=== PATIENT | female | born 1950 | race Caucasian/White ===

== ENCOUNTER → 2021-10-30 | Outpatient (CLI) | payer MEDICARE, OTHER, SELFPAY ==
[2021-10-30 15:20] LABS: Absolute Lymphocyte Count 1.84 X10^3/uL (0.83-4.51); Basophil# 0.04 X10^3/uL; Basophil% 0.4 % (0-1); Eosinophil# 0.16 X10^3/uL; Eosinophils% 1.6 % (0-5); Hematocrit 38.3 % (37-47); Hemoglobin 12.2 g/dL (12.0-15.0); Lymphocyte # 1.84 X10^3/ul (0.83-4.51); Lymphocyte % 18.7 % (19-41); Mean Corp Hgb Conc 31.9 g/dL (32-36); Mean Corpuscular Hgb 30.2 pg (27.0-32.0); Mean Corpuscular Volume 94.8 fL (81-99); Mean Platelet Vol. 9.3 fl (6.2-12.0); Monocyte# 0.79 X10^3/uL; NRBC Flagged by Analyzer 0 % (0-5); Neutrophil # 6.99 X10^3/uL (2.7-7.7); Neutrophil % 70.9 % (47-70); Platelet Count 376 K/mm3 (150-450); RBC Distribution Width CV 13.2 % (11.6-14.6); RBC Distribution Width SD 45.8 fl (35.1-43.9); Red Blood Count 4.04 M/mm3 (4.2-5.4); White Blood Count 9.9 K/mm3 (4.4-11.0)
[2021-10-30 15:47] LABS: Anion Gap 7 (5-15); BUN 30 mg/dL (7-18); BUN/Creat Ratio 35.4 RATIO (10-20); Calcium,Total 9.6 mg/dL (8.5-10.1); Chloride 103 mmol/L (98-107); Creatinine, Serum 0.85 mg/dL (0.55-1.02); EST Glomerular Filtration Rate 71 mL/min (>60); Est Glom Filt Rate - Afr Amer 86 mL/min (>60); Glucose 98 mg/dL (74-106); Potassium 3.9 mmol/L (3.5-5.1); Sodium Level 137 mmol/L (136-145)
[2021-10-31 11:14] LABS: AST(SGOT) 18 U/L (15-37); Alanine Aminotransfer ALT/SGPT 18 U/L (13-56); Albumin, Serum 3.8 g/dL (3.2-5.0); Alkaline Phosphatase 106 U/L (45-117); Bilirubin, Direct 0.09 mg/dL (0.00-0.30); Protein, Total 7.8 g/dL (6.4-8.2)
[2021-11-02 09:34] LABS: Hepatitis B Surface Antibody Non-Reactive; Hepatitis B Surface Antigen Non-Reactive (Nonreactive); Hepatitis C Antibody Non-Reactive (Nonreactive)
[2021-11-03 19:07] LABS: QNTFERON TB Mitogen Value > 10.00 IU/mL (.); QNTFERON TB Nil Value 0 IU/mL (.); QNTFERON TB1+ Ag Value 0.01 IU/mL (.); QNTFERON TB2+ Ag Value 0.01 IU/mL (.)
[2021-11-04 10:28] LABS: Hepatitis B Core Ab Total Negative (Negative); QNTIFERON TB Positive Criteria Negative (Negative)
== END | disposition home or self-care (01) ==
LOC: MTLAB 12:52
PROVIDERS: Referring Provider Physician Assistant; Visit Provider Physician Assistant
DX: L40.0 Psoriasis vulgaris (principal); Z79.899 Other long term (current) drug therapy
CPT/HCPCS: 36415; 80048; 80076; 85025; 86480; 86704; 86706; 86803; 87340

== ENCOUNTER → 2023-07-06 | Outpatient (CLI) | payer MEDICARE, OTHER, SELFPAY ==
--- OUTSIDE RECORDS SUMMARY | 2023-07-06 14:33 | XMS RPT_ITS | CCD ---
Author Name Unknown Address Formerly [facility] [address] [place] [address] Organization [facility] Care Team Providers Care Processor Grain Name Role Phone DR DAYANA RICKS MD Primary Care Physician Adal Morales Primary Care Provider [phone] Adal Morales Attending Provider Dayana Ricks Primary Care Provider [phone] Dyaana Ricks Primary Care Provider DAYANA RICKS Referring Unavailable DAYANA RICKS Primary Care Unavailable Dayana Ricks Primary Care Unavailable ANDI/ANNABELLE Consulting Unavailable Khadra Gutiérrez Attending Unavailable Dayana Ricks Attending Unavailable Dayana Ricks DO Primary Care Provider [phone] Allergies Allergy Classification Reported Allergen(s) Allergy Type Date of Onset Reaction(s) Facility (1 source) Penicillin; Translations: [penicillins] Drug Allergy [facility] (1 source) meloxicam Drug Allergy 12-08-2020 [facility] (2 sources) Penicillins; Translations: [PENICILLINS] Allergy to Substance 01-02-2002 Rash [facility] (1 source) Penicillins Drug Allergy 01-02-2002 [facility] (1 source) meloxicam Drug Allergy 12-08-2020 [facility] (1 source) Penicillins Drug allergy (disorder) 12-08-2020 [facility] (1 source) Penicillins Drug Allergy 01-02-2002 [facility] Medications Current Medications Medication Drug Class(es) Dates Sig (Normalized) Sig (Original) cetirizine hydrochloride 10 mg oral tablet (1 source) Histamine-1 Receptor Antagonist Start: 06-21-2011 Zyrtec 10 mg oral tablet Dose : 10 mg = 1 tab(s), Oral, Daily, PRN for allergy symptoms, # 10 tab(s), 0 Refill(s) Start Date: 06/21/11 Status: Ordered fexofenadine (1 source) Histamine-1 Receptor Antagonist Start: 01-30-2017 Georgie 0 Refill(s) Start Date: 01/30/17 Status: Ordered traMADOL 200 mg/24 hours oral tablet, extended release (1 source) Start: 06-21-2011 take 1 tablet by mouth every hour, then take 1 tablet by mouth once daily traMADOL 200 mg/24 hours oral tablet, extended release Dose : 200 mg = 1 tab(s), Oral, Daily, # 30 tab(s), 0 Refill(s) Start Date: 06/21/11 Status: Ordered vitamin B12 (1 source) Vitamin B12 Start: 01-30-2017 Vitamin B12 0 Refill(s) Start Date: 01/30/17 Status: Ordered Vitamin D3 (1 source) Start: 01-30-2017 Vitamin D3 0 Refill(s) Start Date: 01/30/17 Status: Ordered Completed/Discontinued Medications Medication Drug Class(es) Dates Sig (Normalized) Sig (Original) acetaminophen 325 mg oral tablet (2 sources) Start: 10-23-2020 Acetaminophen [Tylenol*] 650 MG PO EVERY 4 HOURS PRN For Temperature >102 October 23, 2020 Active acetaminophen 325 mg / oxyCODONE hydrochloride 5 mg oral tablet (10 sources) Opioid Agonist Start: 12-08-2020 End: 12-15-2020 take 5-325 mg by mouth every six hours as needed Oxycodone W/ Apap 5-325 Mg [Percocet 5-325 Mg *] 1 TAB PO EVERY 6 HOURS NEEDED PRN For Pain 07 01December 08, 2020 December 15, 2020 Discontinued Problems Active Problems Problem Classification Problem Date Documented Date Episodic/Chronic E Codes: Fall (1 source) Fall; Translations: [Unspecified fall, initial encounter] Episodic Fracture of upper limb (1 source) Fracture at wrist and/or hand level; Translations: [Fracture of unspecified carpal bone, unspecified wrist, initial encounter for closed fracture] Episodic Menopausal disorders (2 sources) Menopausal symptom; Translations: [Menopausal and female climacteric states] Onset: 01-02-2002 10-07-2003 Chronic Osteoarthritis (1 source) Osteoarthritis of left knee joint; Translations: [Unilateral primary osteoarthritis, left knee] Chronic Osteoporosis (2 sources) Osteoporosis; Translations: [Age-related osteoporosis without current pathological fracture] Onset: 12-12-2015 06-09-2021 Chronic Other inflammatory condition of skin (1 source) Psoriasis vulgaris; Translations: [Psoriasis vulgaris] Onset: 09-22-2022 Chronic Other injuries and conditions due to external causes (1 source) Avulsion of skin; Translations: [Other injury of unspecified body region, initial encounter] Episodic Other upper respiratory disease (1 source) Other allergic rhinitis; Translations: [Other allergic rhinitis] Onset: 04-12-2023 Chronic Substance-related disorders (2 sources) Tobacco user; Translations: [Nicotine dependence, unspecified, uncomplicated] Onset: 07-27-2005 07-27-2005 Chronic Thyroid disorders (3 sources) Hypothyroidism; Translations: [Hypothyroidism, unspecified] Onset: 01-02-2002 Chronic Past or Other Problems Problem Classification Problem Date Documented Da te Episodic/Chronic Other aftercare (1 source) Other intermediate (current) drug therapy; Translations: [Other intermediate (current) drug therapy] Onset: 09-22-2022 Episodic Other bone disease and musculoskeletal deformities (2 sources) Disorder of skeletal system; Translations: [Disorder of bone, unspecified] Onset: 07-27-2005 07-27-2005 Episodic Results Test Name Value Interpretation Reference Range Facil ity Vital Signs Date Time Vital Sign Value Performing Clinician Naomie glasgow 12-08-2020 20:30-0400 Body temperature 96.8 [degF] [facility] 12-08-2020 20:30-0400 Diastolic blood pressure 59 mm[Hg] Adal GO-SIM [facility] 12-08-2020 20:30-0400 Heart rate 80 /min [facility] 12-08-2020 20:30-0400 Respiratory rate 16 /min [facility] 12-08-2020 20:30-0400 SaO2% (BldA) [Mass fraction] 96 % Adal Morales [facility] 12-08-2020 20:30-0400 Systolic blood pressure 110 mm[Hg] [facility] 12-08-2020 13:22-0400 Body height 157.48 cm Adal Morales [facility] 12-08-2020 13:22-0400 Body weight 92 [facility] Encounters Encounter Date Encounter Type Care Provider Facility Start: 04-12-2023 ambulatory Dayana Ye ty:[facility] Start: 11-29-2022 End: 11-29-2022 ambulatory DAYANA RICKS Facility:[facility] Start: 11-29-2022 End: 11-29-2022 Subsequent hospital visit by physician Screen Mammo [facility] Start: 09-22-2022 ambulatory Dayana Flowersi ty:[facility] Start: 08-06-2021 End: 08-07-2021 Discharged Recurring Adal Morales [facility] Start: 04-09-2021 End: 04-09-2021 Patient encounter procedure RANDELLFRITZ MORALES DO [facility] Start: 03-12-2021 Telephone encounter Rudy rivera MD Work Phone: Endocrinology Procedures Date Procedure Procedure Detail Performing Clinician Start: 11-29-2022 Screening mammograph y bi 2-view breast inc [facility] Provider Start: 12-08-2020 Thermometer SDS Radha smith Start: 12-08-2020 Vital Signs SDS Radha smith Start: 12-08-2020 IV Push (Initial) PACU Radha Monroy Start: 12-08-2020 Oxygen PACU Radha Moran en Start: 12-08-2020 Thermometer PACU Radha Monroy Start: 12-08-2020 Vital Signs PACU Radha Monroy Start: 12-08-2020 Preparation for procedure Corina Guan Start: 12-08-2020 Arthroplasty of wrist D O Christopher Stalling Start: 12-08-2020 Injection of knee DO Ch ristopher Stalling Start: 12-08-2020 Active external warm ing of subject Elizabeth Bowling Start: 12-08-2020 Carbon dioxide maritza nt measurement Elizabeth Bowling Start: 12-08-2020 Epidural anesthesia Tri sha Bowling Start: 12-08-2020 IV Push (Initial) SDS T anand Bowling Start: 12-08-2020 Oxygen SDS Elizabeth Wooster ling Start: 12-08-2020 Sonosite Elizabeth Wooster ling Start: 12-08-2020 Angio-Cath SDS Rebeca farmer Start: 12-08-2020 Thermometer SDS Rebeca Margo Start: 12-08-2020 Vital Signs SDS Rebeca Margo Start: 12-08-2020 Gram stain microscopy C hris Stalling Start: 12-08-2020 Lumbar puncture in luz maria fluoroscopic guidance Adal ing Start: 10-22-2020 X-ray of left knee Chri s Stalling Start: 10-22-2020 Carbon dioxide maritza nt measurement Reyna Ingledue Start: 10-22-2020 Oxygen PACU Reyna Ingl edue Start: 10-22-2020 Thermometer PACU Reyna Ingledue Start: 10-22-2020 Vital Signs PACU Reyna Ingledue Start: 10-22-2020 Carbon dioxide maritza nt measurement Charlene Eldon Start: 10-22-2020 Epidural anesthesia Emma i Chunko Start: 10-22-2020 IV Push (Initial) SDS L mathew Chunko Start: 10-22-2020 Oxygen SDS Charlene Chunk o Start: 10-22-2020 Sonosite Charlene Chunk o Start: 10-22-2020 End: 10-22-2020 Preparation for procedure Sandra Ricci Start: 10-22-2020 Total replacement of left knee joint DO Nash Morales Start: 10-22-2020 Clipper Blade SDS Radha Monroy Start: 10-22-2020 Angio-Cath SDS Radha Mu llen Start: 10-22-2020 Thermometer SDS Adal pascal Start: 10-22-2020 Vital Signs SDS Radha smith Start: 10-14-2020 Microscopic urinalysis Adal Morales Start: 01-01-2016 Mammography Rudy rivera MD Work Phone: Start: 12-29-2015 Lipid 1996 panel - S liza or Plasma Screen Wstr Plan of Treatment Date Care Activity Detail Author Start: 11-30-2023 Mammography Mammogram Screening [facility] Start: 02-11-2023 Covid-19 Vaccine ( season) Covid-19 Vaccine ( season) [facility] Start: 02-11-2023 Influenza vaccination Influenza Vaccine (#1) [facility] Start: 06-13-2022 Advance Directive Discussion Advance Directive Discussion [facility] Start: 06-13-2022 Depression Assessment Depression Assessment [facility] Start: 02-11-2022 [facility] Start: 06-13-2021 ADVANCE DIRECTIVE DISCUSSION ADVANCE DIRECTIVE DISCUSSION [facility] Start: 03-04-2021 COVID-19 VACCINE (3 - Booster for Moderna series) COVID-19 VACCINE (3 - Booster for Moderna series) [facility] Start: 12-28-2020 Lipid 1996 panel - Serum or Plasma Lipid Screening [facility] Start: 12-28-2020 LIPID SCREEN LIPID SCREEN [facility] Start: 12-08-2020 US GUIDANCE (MONET) US GUIDANCE (MONET) [facility] Start: 10-22-2020 US GUIDANCE (MONET) US GUIDANCE (MONET) [facility] Start: 12-28-2018 DIABETES SCREEN DIABETES SCREEN [facility] Start: 12-28-2018 Diabetes Screening Diabetes Screening [facility] Start: 2017 Pneumococcal Vaccine: 65+ (1 - PCV) Pneumococcal Vaccine: 65+ (1 - PCV) [facility] Start: 2017 PNEUMOVAX AGE 65 AND OVER WITH 5YR LOOKBACK (#1) PNEUMOVAX AGE 65 AND OVER WITH 5YR LOOKBACK (#1) [facility] Start: 12-31-2016 Mammography MAMMOGRAM [facility] Start: 2002 SHINGRIX VACCINE (1 of 2) SHINGRIX VACCINE (1 of 2) [facility] Start: 1997 COLOGUARD (FIT-DNA) COLOGUARD (FIT-DNA) [facility] Start: 1997 Colonoscopy COLONOSCOPY [facility] Start: 1997 COLORECTAL CANCER SCREENING COLORECTAL CANCER SCREENING [facility] Start: [address] COLONOGRAPHY [facility] Start: 1997 FECAL OCCULT BLOOD FECAL OCCULT BLOOD [facility] Start: 1997 SIGMOIDOSCOPY SIGMOIDOSCOPY [facility] Start: 1971 Urine microalbumin profile [facility] Start: 1970 ANNUAL PCP TEAM CHRONIC DISEASE VISIT ANNUAL PCP TEAM CHRONIC DISEASE VISIT [facility] Start: 1970 HEPATITIS C SCREENING HEPATITIS C SCREENING [facility] Start: 1964 Adult depression screening assessment DEPRESSION SCREENING [facility] INFLUENZA SEASONAL QUADRIVALENT HIGH DOSE AGE 65+ INFLUENZA SEASONAL QUADRIVALENT HIGH DOSE AGE 65+ Immunization/Injection Routine Unspecified hypothyroidism Ordered: 03/12/[address] [facility] Work Phone: Immunizations Immunization Date Immunization Notes Care Provider Jared linares 05-10-2022 influenza virus vaccine, unspecified formulation Screen Wstr [facility] 06-05-2020 diphtheria, tetanus toxoids and acellular pertussis vaccine Adal Morales [facility] 03-12-2020 influenza, high-dose , quadrivalent vaccine (FLUZONE HIGH DOSE QUADRIVALENT) Rudy Sanchez MD Work Phone: [facility] 02-28-2019 influenza, high dose seasonal, preservative-free Rudy Sanchez MD Work Phone: [facility] 11-21-2018 diphtheria, tetanus toxoids and acellular pertussis vaccine Adal Morales [facility] 04-09-2003 bacillus calmette-pepe vaccine Rudy Sanchez MD Work Phone: [facility] 04-09-2003 influenza virus vaccine, whole virus Rudy Sanchez MD Work Phone: [facility] 04-16-2001 influenza virus vaccine, unspecified formulation Rudy Sanchez MD Work Phone: [facility] Payers Date Payer Category Payer Self-pay 2019 Medicare MEDICARE MEDICAR E A AND B [id number] 2019-Present [phone] [place] [address] Medicare [id number] 2019 Medicare [id number] 2019 Medicare MEDICARE MEDICAR E A AND B [id number] 2019-Present [phone] [place] [address] Medicare [id number] 2002 Unknown [facility] [id number] 2002-Present [phone] [address] [address] [place] [address] Indemnity [id number] 2002 Unknown [id number] 2002 Unknown [facility] [id number] 2002-Present [phone] [address] [address] [place] [address] Indemnity [id number] Unknown [id number] Unknown [id number] Social History Date Type Detail Facility Start: 01-07-2016 Ex-smoker (finding) [facility] Assigned At [facility] End: 07-21-2015 History of tobacco use Current smoker [facility] Work Phone: End: 07-21-2015 History of tobacco use Cigarette Smoker [facility] Work Phone: Start: 01-07-2016 End: 05-20-2020 Cigarettes smoked current (pack per day) - Reported 0.5 [facility] Start: 01-07-2016 Tobacco use and exposure Smokeless tobacco non-user [facility] Work Phone: Start: 03-12-2021 End: 01-26-2022 Alcohol intake Current drinker of alcohol (finding) [facility] Start: 01-07-2016 History SDOH Alcohol Comment social once every 2 wks, 2 drinks [facility] Start: 1950 Sex Assigned At Not on file [facility] Start: 02-10-2021 End: 03-12-2021 Exposure to SARS-CoV-2 (event) Not sure [facility] Start: 05-20-2020 End: 01-26-2022 Tobacco use panel [facility] National Score (1-10 0), lower number is lower risk Not on file [facility] Progress note 11-29-2022 Note Date & Type Note Facility 11-29-2022 Note HNO ID: [id number] Author: Melanie Dominguez, [employer] Service: ? Author Type: Lavatory Attendant Type: Progress Notes Filed: 11/29/2022 2:07 PM Note Text: Radiology Service Progress Note PATIENT NAME: Merary Cat DATE OF SERVICE: November 29, 2022 TIME: 1:50 PM PATIENT IDENTITY VERIFICATION COMPLETED USING TWO (2) IDENTIFIERS: Name and Date of confirmed by patient verbally. FALL SCREENING: Has the patient had 2 falls in the last year or 1 fall with injury or currently using an Ambulatory Assistive Device (Walker, Cane, Wheelchair, Crutches, etc.)? No PATIENT GENDER DATA: Female. status: : No status: NO. PATIENT RELEVANT IMPLANT DATA REVIEWED: Not Applicable RADIOLOGY DEPARTMENT: Mammography PERIPHERAL IV DATA: Not applicable SIGNED BY: Jagdish Zavalao Silvio November 29, 2022 1:50 PM [facility] History of Present illness Narrative 11-29-2022 Melanie Dominguez Mammo Silvio - 11/29/2022 1:30 PM EDT Note Date & Type Note Facility 11-29-2022 History of Presen t illness Narrative Radiology Service Progress Note PATIENT NAME: Merary Cat DATE OF SERVICE: November 29, 2022 TIME: 1:50 PM PATIENT IDENTITY VERIFICATION COMPLETED USING TWO (2) IDENTIFIERS: Name and Date of confirmed by patient verbally. FALL SCREENING: Has the patient had 2 falls in the last year or 1 fall with injury or currently using an Ambulatory Assistive Device (Walker, Cane, Wheelchair, Crutches, etc.)? No PATIENT GENDER DATA: Female. status: : No status: NO. PATIENT RELEVANT IMPLANT DATA REVIEWED: Not Applicable RADIOLOGY DEPARTMENT: Mammography PERIPHERAL IV DATA: Not applicable SIGNED BY: Melanie Dominguez Mammo Silvio November 29, 2022 1:50 PM documented in this encounter [facility] Note 03-12-2021 Telephone Encounter - Lorna Amin RN - 03/12/2021 11:47 AM EDT Note Date & Type Note Facility 03-12-2021 Miscellaneous Notes Order high dose flu shot and gave injection today Lorna Amin RN documented in this encounter [facility] Discharge instructions 10-23-2020 Note Date & Type Note Facility [facility] Evaluation + Plan note Note Date & Type Note Facility Evaluation + Plan note No data available for this section [facility] Evaluation note Note Date & Type Note Facility documented in this encounter [facility] Discharge instructions Note Date & Type Note [facility] Discharge instructions No data available for this section [facility] Summary Purpose Family History No Family History Records FoundNo Family History Records FoundNo Family History Records FoundNo Family History Records Found Advance Directives Advance Directive Response Recorded Date/ Time Advance Directives Yes December 08, 2020 11:22am Durable Power Of Street Light Inspector Yes November 122020 11:22am Living Will Yes December 08, 2020 11 :22am Chief Complaint and Reason for Visit Encounter Admit Date Chief Complaint Reason for V isit Discharged Recurring August 06, 2021 1:30pm S52.502K FRACTURE OF LOWER END OF LEFT RADIUS Additional Source Comments INFORMATION SOURCE (unrecogn ized section and content) DATE CREATED AUTHOR AUTHOR'S ORGANIZ ATION 04/10/2021 [facility] ([place]) DATE CREATED AUTHOR AUTHOR'S ORGANIZ ATION 12/02/2022 [facility] DATE CREATED AUTHOR AUTHOR'S ORGANIZ ATION 04/13/2023 [facility] Source Comments (unrecognize d section and content) In the event this informatio n is protected by the Federal Confidentiality of Alcohol and Drug Abuse Patient Records regulations: The Federal rules restrict any use of the information to criminally investigate or prosecute any alcohol or drug abuse patient[facility] the event this information is protected by the Federal Confidentiality of Alcohol and Drug Abuse Patient Records regulations: The Federal rules restrict any use of the information to criminally investigate or prosecute any alcohol or drug abuse patient.[facility] Reason for Visit (unrecogniz ed section and content) Care Teams (unrecognized sec tion and content) Processor Grain Relationship Specialty [place] [address] [place] [address] PCP - General Internal Medicine 02/28/19 FOR RECORDS PERTAINING TO PATIENTS WHO ARE OR HAVE BEEN ENROLLED IN A CHEMICAL DEPENDENCY/SUBSTANCEABUSE PROGRAM, SOME INFORMATION MAY BE OMITTED. This clinical summary was aggregated from multiple sources. Caution should be exercised in using it in the provision of clinical care. This summary normalizes information from multiple sources, and as a consequence, information in this document may materially change the coding, format and clinical context of patient data. In addition, data may be omitted in some cases. CLINICAL DECISIONS SHOULD BE BASED ON THE PRIMARY CLINICAL RECORDS. [employer] [facility]. provides no warranty or guarantee of the accuracy or completeness of information in this document.
[2023-07-09 18:08] LABS: Hepatitis B Core Ab Total Negative (Negative); QNTFERON TB Mitogen Value > 10.00 IU/mL (.); QNTFERON TB Nil Value 0 IU/mL (.); QNTFERON TB1+ Ag Value 0.01 IU/mL (.); QNTFERON TB2+ Ag Value 0 IU/mL (.); QNTIFERON TB Positive Criteria Negative (Negative)
== END | disposition home or self-care (01) ==
PROVIDERS: Referring Provider Physician Assistant; Visit Provider Physician Assistant
DX: L40.0 Psoriasis vulgaris (principal); Z79.899 Other long term (current) drug therapy
CPT/HCPCS: 36415; 86480; 86704

== ENCOUNTER 2024-01-05 09:21 | Observation (INO) | payer MEDICARE, OTHER, SELFPAY ==
--- NOTE | 2023-12-06 10:05 | EKG12_ITS ---
Test Reason : PRE OP Blood Pressure : / mmHG Vent. Rate : 101 BPM Atrial Rate : 101 BPM P-R Int : 140 ms QRS Dur : 076 ms QT Int : 310 ms P-R-T Axes : 068 019 024 degrees QTc Int : 401 ms Sinus tachycardia Right atrial enlargement Low voltage QRS Borderline ECG Confirmed by Issa Wilder ([id number]), editorial clerk BENTON HARVEY ([id number]) on 12/07/2023 11:28:52 AM Referred By: Jak Cooper Confirmed By:Issa Wilder
--- NOTE | 2023-12-06 10:20 | RAD_ITS ---
STUDY: X-RAY CHEST REASON FOR EXAM: Female, 73 years old. Preoperative evaluation. TECHNIQUE: Frontal and lateral views of the chest. COMPARISON: None. FINDINGS: The lungs are clear and expanded. There is no demonstrated pleural abnormality. Borderline cardiomegaly. Normal mediastinum and becca. Normal visualized pulmonary arteries. Mild aortic tortuosity. Normal visualized thoracic spine. Normal visualized ribs, clavicles, and shoulders. No abnormality of the visualized soft tissue structures of the upper abdomen. RAD/Chest PA and Lateral IMPRESSION: Borderline cardiomegaly with no acute or active cardiopulmonary disease. Electronically Signed: Pieter Souza MD at 9:38 EDT ,
[2023-12-06 11:02] LABS: Absolute Lymphocyte Count 2.06 X10^3/uL (0.83-4.51); Absolute Neutrophil Count 6.9 X10^3/uL (2.0-7.7); Basophil# 0.07 X10^3/uL; Basophil% 0.7 % (0-1); Eosinophil# 0.13 X10^3/uL; Eosinophils% 1.3 % (0-5); Hematocrit 37.9 % (37-47); Hemoglobin 12.2 g/dL (12.0-15.0); Lymphocyte # 2.06 X10^3/ul (0.83-4.51); Lymphocyte % 20.6 % (19-41); Mean Corp Hgb Conc 32.2 g/dL (32-36); Mean Corpuscular Hgb 29.8 pg (27.0-32.0); Mean Corpuscular Volume 92.4 fL (81-99); Mean Platelet Vol. 8.8 fl (6.2-12.0); Monocyte# 0.83 X10^3/uL; Monocyte% 8.3 % (0-10); NRBC Flagged by Analyzer 0 % (0-5); Neutrophil # 6.89 X10^3/uL (2.7-7.7); Neutrophil % 68.7 % (47-70); Platelet Count 313 K/mm3 (150-450); RBC Distribution Width CV 12.8 % (11.6-14.6); RBC Distribution Width SD 43.4 fl (35.1-43.9)
[2023-12-06 11:14] LABS: Prothrombin Time (Protime)PT. 13.3 SECONDS (11.7-14.9)
[2023-12-06 11:15] LABS: Partial Thromboplast Time 29.9 Seconds (24.1-36.2)
[2023-12-06 11:42] LABS: Anion Gap 6 (5-15); BUN 27 mg/dL (7-18); BUN/Creat Ratio 30.4 RATIO (10-20); Calcium,Total 9.6 mg/dL (8.5-10.1); Chloride 106 mmol/L (98-107); Creatinine, Serum 0.89 mg/dL (0.55-1.02); EST Glomerular Filtration Rate 67 mL/min (>60); Est Glom Filt Rate - Afr Amer 81 mL/min (>60); Glucose 112 mg/dL (74-106); Potassium 3.9 mmol/L (3.5-5.1); Sodium Level 138 mmol/L (136-145); Thyroid Stim Hormone (TSH) < 0.01 uIU/mL (0.358-3.74)
[2023-12-06 11:43] LABS: AST(SGOT) 11 U/L (15-37); Alanine Aminotransfer ALT/SGPT 15 U/L (13-56); Albumin, Serum 3.6 g/dL (3.2-5.0); Alkaline Phosphatase 107 U/L (45-117); Bilirubin, Direct 0.08 mg/dL (0.00-0.30); Globulin 3.9 g/dL (2.2-4.2); Protein, Total 7.5 g/dL (6.4-8.2)
[2024-01-05] VITALS (17 sets, daily range): BP systolic 97–144; BP diastolic 54–94; PULSE 71–106; RESP 10–18; TEMP 36.1–37.3; O2SAT 4–99; BMI 39.1
--- NOTE | 2024-01-05 08:10 | PRE.ANES_ITS ---
ASA Classification* ASA Classification ASA Classification: 2 Assessment & Plan Anesthesia* Anesthesia Assessment Anesthesia Assessment: Discussed sedation and/or anesthesia options, risks, benefits, and alternatives with patient/parents/legal guardian/POA. Questions invited. The patient/parents/legal guardian/POA seems to understand and agrees to proceed with anesthesia plan. Reviewed the physical assessment, medical history, allergy history and patient home medications list prior to surgery/procedure/anesthetic and documented any changes. Performed airway and anesthesia risk assessments. Anesthesia Type Anesthesia Type: General Anesthesia Focused Assessment* Airway Assessment Mouth opens: >3 cm Mallampati Score: II Focused Labs Anesthesia Preop lab: CBC WBC 10.0 K/mm3 (4.4-11.0) 12/06/23 10:30 RBC 4.10 M/mm3 (4.2-5.4) L 12/06/23 10:30 Hgb 12.2 g/dL (12.0-15.0) 12/06/23 10:30 Hct 37.9 % (37-47) 12/06/23 10:30 Plt Count 313 K/mm3 (150-450) 12/06/23 10:30 CHEMISTRY Potassium 3.9 mmol/L (3.5-5.1) 12/06/23 10:30 Sodium 138 mmol/L (136-145) 12/06/23 10:30 Magnesium 2.0 mg/dL (1.6-2.6) 12/06/23 10:30 BUN 27 mg/dL (7-18) H 12/06/23 10:30 Creatinine 0.89 mg/dL (0.55-1.02) 12/06/23 10:30 Glucose 112 mg/dL (74-106) H 12/06/23 10:30 TSH < 0.01 uIU/mL (0.358-3.74) L 12/06/23 10:30 COAG PT 13.3 SECONDS (11.7-14.9) 12/06/23 10:30 Pre-Assessment Diagnosis/Proposed Procedure Planned Operative Procedure(s): LUMBAR 5 AND SACRAL 1 POSTERIOR LUMBAR INTERBODY FUSION,DECOMPRESSION POSTERIOR SPINAL FUSION WITH INSTRUMENTATION USE OF ALLOGRAFT Anesthesia History 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 When Was Last Pacemaker Check QUESTION #4 FULL TEXT: You/Your Family Experience fever (hyperthermia) with Anesthesia Last Oral Intake Last Oral intake: Last Oral Intake NPO since Meds taken in AM with sips of water? 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 Female Yes 11/24/23 09:59 HX of Motion Sickness No 11/24/23 09:59 HX of N/V After Surgery No 11/24/23 09:59 Non-Smoker Yes 11/24/23 09:59 Duration of Surgery greater Yes 11/24/23 09:59 than 60 minutes Number of Risk Factors 3 11/24/23 09:59 PONV Score Moderate Risk 11/24/23 09:59 Respiratory Assessment Respiratory Assessment - hair or beauty salon manager: Respiratory Tract Infection Hx - hair or beauty salon manager Hx Respiratory Tract Infection No 11/24/23 09:59 STOP Sleep Apnea STOP Sleep Apnea - hair or beauty salon manager: STOP Sleep Apnea - hair or beauty salon manager Hx Hypertension Yes: CONTROLLED WITH MED 11/24/23 09:59 Hx Sleep Apnea No 11/24/23 09:59 CPAP BIPAP Do you snore loudly (louder No 11/24/23 09:59 than talking or can be heard Do you often feel tired/ No 11/24/23 09:59 fatigued/ sleepy during daytime? Has anyone observed you stop No 11/24/23 09:59 breathing during sleep? STOP Results Negative 11/24/23 09:59 QUESTION #5 FULL TEXT : Do you snore loudly (louder than talking or can be heard through closed doors)? 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 Specify any problems Hx of Preganancy in last 3 No 11/24/23 09:59 Months Nurse Filling Out Transfusion DSCHRIBER 11/24/23 09:59 & Questions: Date: 11/24/23 11/24/23 09:59 Time: 10:01 11/24/23 09:59 Patient unable to answer at this time (ie. confused, unrespo /Reproduction History /Reproductive History - hair or beauty salon manager: /Reproductive Hx- hair or beauty salon manager Hx Now No 11/24/23 09:59 Gestational Age (in weeks): EDC: Hx Hx Para Hx Section SAB No 11/24/23 09:59 Active Medications Active Medications: Current Medications Generic Name Dose Route Start Last Admin Trade Name Freq PRN Reason Stop Dose Admin Acetaminophen 1,000 mg 01/05/24 10:20 Acetaminophen 500 Mg Tablet PO 01/05/24 10:21 X1 ONE Clindamycin Phosphate 900 mg in 50 mls @ 75 mls/hr 01/05/24 10:20 Cleocin IV 01/05/24 10:59 PREOP ONE Magnesium Sulfate 1 gm/ 102 mls @ 408 mls/hr 01/05/24 10:20 Dextrose IV 01/05/24 10:34 X1 ONE Insulin Human Lispro 1 - 6 unit 01/05/24 10:20 Insulin Lispro 100 Unit/Ml Insuln.Pen SC 01/05/24 16:20 Q4H PRN PRN BG>/= 180, SEE PROTOCOL Protocol PFSH Medical History Post-menopausal Anxiety Thyroid disease Ambulates with cane Arthritis Easy bruising Injury of back Back pain Fall Loss of consciousness Hoarseness Former smoker History of pain when walking Hypertension Home Medications ?Medication ?Instructions ?Recorded ?Last Taken ?Type acetaminophen 500 mg tablet 1,000 mg PO Q6H PRN PRN pain 11/24/23 Unknown History (Acetaminophen Extra Strength) hydrochlorothiazide 25 mg tablet 25 mg PO DAILY 11/24/23 Unknown History levothyroxine 200 mcg capsule 200 mcg PO DAILY 11/24/23 Unknown History lisinopril 20 mg tablet 20 mg PO QHS 11/24/23 Unknown History trazodone 100 mg tablet 200 mg PO QHS 11/24/23 Unknown History Allergy/AdvReac Type Severity Reaction Status Date / Time Penicillins Allergy Intermediate Hives Verified 11/24/23 09:51 Surgical History Hx of tubal ligation Hx of total knee replacement Social History Smoking Status: Former smoker Review of Systems (Anesthesia) ROS Narrative System reviewed and no additional complaints, except as documented.
[2024-01-05] MEDS: Magnesium 1 GM over 15 mins IV (08:56)
[2024-01-05] MEDS: Acetaminophen 500 MG Tablet 1000 MG PO ×3 (08:56→21:08)
[2024-01-05] MEDS: Lactated Ringers 1,000 ML 15 ML IV (08:56)
--- NOTE | 2024-01-05 09:12 | OP.PCM_ITS ---
Report of Operation Date of Procedure: 01/05/24 Description of Surgical Findings:: Preop diagnosis: 1. Lumbar stenosis, L5-S1 with spondylosis 2. Lumbar degenerative disc disease L5-S1 Postop diagnosis: 1. Lumbar stenosis, L5-S1 with spondylosis 2. Lumbar degenerative disc disease L5-S1 Procedures performed: 1. L5-S1 posterior lumbar interbody fusion 2. Insertion of intervertebral biomechanical device x1 3. Structural allograft for spinal fusion 4. L5 bilateral laminectomies, foraminotomies, facetectomies, decompression of bilateral nerve roots 5. S1 bilateral laminectomies, foraminotomies, facetectomies, decompression of bilateral nerve roots 6. L5-S1 posterolateral fusion 7. Pedicle screw fixation 8. Local autograft for spinal fusion 9. Neuro monitoring bilateral upper and bilateral lower extremities Statement of medical necessity: The patient is a 73-year-old female with intractable back and leg pain. Image studies confirm the above diagnoses. They have failed conservative treatments to include medications physical therapy and injections and have opted for operative intervention understanding the risk to include but not limited to infection, bleeding, damage to nerves arteries and veins, possibility of spinal fluid leak, nonunion, hardware failure, continued pain, need for further surgery, deep vein thrombosis, pulmonary embolism, heart attack, risk of stroke or . Description of the procedure: The patient was identified in the preoperative holding area. There they received preoperative IV antibiotics and was then transferred to the operative suite. Once in the operative suite after general endotracheal anesthesia was established, the patient was positioned prone on the [facility] operating table. All bony prominences were padded accordingly. The lumbar spine was prepped and draped in a standard fashion. Bear hugger's were not turned on until the drapes were placed and sealed with Ioban. A midline incision was made and taken down to the fascia. The fascia was divided and subperiosteal dissection was taken down to the level of the transverse processes and sacral ala of L5 and S1 bilaterally. Deep retractors were placed. A bone scalpel was used to make cuts in the lamina and then a series of rongeurs and Kerrisons were used removing the spinous process and lamina of L5 and S1. Then facetectomies of greater than 50% were performed bilaterally at L5-S1 as well as foraminotomies decompressing the bilateral nerve roots. Given the severity of the stenosis I needed to perform wide bilateral laminectomies and near complete facetectomies in order to decompress the neural elements. Disc created instability necessitating the fusion. I then proceeded with interbody fusion. The nerve roots and dura were identified and retracted medially. A knife was utilized to perform an annulotomy at L5-S1. Endplate elevators, curettes, and pituitaries were utilized to remove disc material. Endplates were prepared with a rasp. An appropriate sized intervertebral peek cage device measuring 8mm was packed with structural allograft and impacted into position completing the posterior lumbar interbody fusion at the L5-S1 level. I then proceeded with pedicle screw fixation. Starting points were found at the junction of the superior articular process and transverse processes and sacral ala of L5 and S1. A power bur was used for the starting points. Pedicle probes were placed bilaterally and then 6.5x55mm screws were placed bilaterally at L5 and 6.5x35mm screws were placed bilaterally at S1. The screws were tested with intraoperative neurophysiologic monitoring and tested within normal limits. Connector rods were applied and secured with set screws. I then proceeded with the posterolateral fusion. This was accomplished by decorticating the transverse processes bilaterally at L5 and the sacral ala bilaterally at S1. This decorticated bone was then bridged with local autograft from the decompression as well as morselized cancellous allograft completing the posterolateral fusion of the L5-S1 level. The incision was thoroughly i rrigated. Tisseel was placed over the dura as a hemostatic agent. The fascia was closed with #1 Vicryl, subcutaneous with 2-0 Vicryl and skin with 2-0 nylon. A sterile dressing was applied with 4 x 4's ABD and tape. Sponge instrument and needle counts were correct at the end of the case. Neurophysiologic monitoring was maintained at baseline throughout the duration of the case. The patient was extubated and taken to the PACU without incident Surgeon: Jak Cooper Type of Anesthesia: General Estimated Blood Loss (mL): 542cc Fluids Replaced: 2200cc Grafts/Implants Used: Unified spine Complications None Admit VTE Documentation VTE Present on Admission: No
--- NOTE | 2024-01-05 09:14 | PCM.PN.ORT ---
Subjective Subjective Seen and examined postoperatively. Resting comfortably. Pain controlled. No complaints Objective Data Objective Data Vital Signs: Vital Signs Temp Pulse Resp BP Pulse Ox O2 Del Method 99.2 F H 71 16 119/73 97 Room Air 01/05/24 08:47 01/05/24 08:47 01/05/24 08:47 01/05/24 08:47 01/05/24 08:47 01/05/24 08:47 Oxygen Delivery Method Room Air Weight: 221 lb Body Mass Index (BMI) 39.1 Lab / Micro Data 12/06/23 10:30 12/06/23 10:30 Micro: Microbiology 12/09/23 10:14 Swab (Method) Nasal Screen MRSA/MSSA - Final Physical Exam Const alert, oriented x3 and no apparent distress General Appearance: cooperative, comfortable and well kempt HEENT normocephalic and head/scalp atraumatic Eyes EOMs intact bilaterally and conjunctivae normal Neck full ROM General: normal visual inspection Chest inspection of chest normal and palpation of chest normal Resp normal respiratory effort and normal air movement Cardio regular rate, regular rhythm and peripheral pulses 2+ throughout GI soft to palpation, non-tender and non-distended Back/Spine Back/Spine Narrative: Dressing clean dry and intact Cervical Spine: cervical ROM normal Thoracic Spine / Upper Back: normal to inspection Lumbar Spine / Lower Back: normal to inspection Extremity normal to inspection, full ROM, normal capillary refill, no clubbing, cyanosis or edema and no calf tenderness Skin no rashes or lesions noted General Skin Exam: no breakdown Neuro oriented x3, CN's II-XII intact bilaterally, moves all extremities, no focal motor deficits, no sensory deficits noted and deep tendon reflexes 2+ bilaterally Motor Exam: muscle tone normal throughout Assessment & Plan Assessment/Plan (1) Lumbar stenosis: PLAN: Okay to admit See orders Discharge planning, likely home tomorrow
--- NOTE | 2024-01-05 09:15 | PCM.DC.SUM ---
Providers Date of Admission: 01/05/24 Primary Care Physician: No Primary Care Phys Reason For Visit: LUMBAR 5 - SACRAL 1 POSTERIOR LUMBA Diagnosis Discharge Diagnosis (1) Lumbar stenosis: Status: Acute Code(s): M48.061 - Spinal stenosis, lumbar region without neurogenic claudication Plan: Okay to admit See orders Discharge planning, likely home tomorrow Medications at Discharge Home Medications acetaminophen 500 mg tablet (Acetaminophen Extra Strength) 1,000 mg PO Q6H PRN PRN pain 11/24/23 hydrochlorothiazide 25 mg tablet 25 mg PO DAILY 11/24/23 levothyroxine 200 mcg capsule 200 mcg PO DAILY 11/24/23 lisinopril 20 mg tablet 20 mg PO QHS 11/24/23 trazodone 100 mg tablet 200 mg PO QHS 11/24/23 hydrocodone-acetaminophen 5-325mg 5mg-325mg 1 tab PO Q6H 7 days #28 tabs 01/05/24 Hospital Course Operations - (L5-S1 posterior lumbar interbody fusion, decompression, posterior spinal fusion with instrumentation, use of allograft) Summary of Care Provided Minutes Spent on Discharge: 15 Hospital Course: The patient is a 73-year-old female who underwent L5-S1 fusion on 01/05/2024. She was subsequently admitted. The hospitalist was consulted for medical management. The patient progressed well. Her pain was controlled and she was mobilizing well. No significant medical issues were reported. She was subsequently discharged home on 01/06/2024 to follow-up with Dr. Cooper in 3 weeks Physical Exam Const alert, oriented x3 and no apparent distress General Appearance: cooperative, comfortable and well kempt Neck full ROM General: normal visual inspection Resp normal respiratory effort and normal air movement Effort and Inspection: able to speak in complete sentences Cardio regular rate and peripheral pulses 2+ throughout GI soft to palpation, non-tender and non-distended Back/Spine Back/Spine Narrative: Dressing clean dry and intact. Incision well-approximated with interrupted sutures in place Cervical Spine: cervical ROM normal Thoracic Spine / Upper Back: normal to inspection Lumbar Spine / Lower Back: normal to inspection Extremity normal to inspection, full ROM, normal capillary refill, no clubbing, cyanosis or edema and no calf tenderness Skin no rashes or lesions noted General Skin Exam: no breakdown Neuro oriented x3, CN's II-XII intact bilaterally, moves all extremities, no focal motor deficits, no sensory deficits noted and deep tendon reflexes 2+ bilaterally Motor Exam: strength 5/5 throughout and muscle tone normal throughout Weight / BMI Weight Weight: 221 lb Body Mass Index (BMI) 39.1 ABG / Lab / Microbiology Data 12/06/23 10:30 12/06/23 10:30 Microbiology: Microbiology 12/09/23 10:14 Swab (Method) Nasal Screen MRSA/MSSA - Final D/C Instructions Discharge Diet: No restrictions Additional Activity Instructions: Wear back brace at all times. No repetitive bending twisting or lifting more than 5 pounds Call your doctor if your incision/area has: Continuous Slow Oozing, Sudden Increased Bleeding, Increased Pain/ Swelling, Increased Redness, Foul Smelling Discharge and Swelling at the incision site Call your doctor if you observe: Fever of 101 or Higher, Coldness, Increased Pain, Numbness or Tingling, Change in Color, Inability to urinate, Inability to have a bowel movement, Using more than 1 pad per hour, Shortness of breath, Dizziness, Fainting spells, Swelling in the ankles, Chest pain, Prolonged hiccupping, Increased palpitations (irregular heartbeat), Calf discomfort and Uncontrolled pain Cleanse incision/area with: Do not get Incision Wet and Keep Dressing Clean & Dry Additional Dressing/Incision Instructions: Change dressing daily with dry gauze and tape Additional Instructions: 1. During your procedure, you received sedation through your IV. Please follow these instructions for the next 24 hours: Do not drive a motor vehicle, do not drink any alcoholic beverages, and do not sign any legal documents or make personal or business decisions. A responsible adult should stay with you at least 6 hours after the procedure. 2. Keep your surgical site/incision clean and the dressing dry and intact. You may use an ice pack at the surgical site to reduce any swelling or discomfort. 3. Monitor the incision site for any signs or symptoms of infection. Watch for redness, excessive swelling or drainage, or continued pain at the incision site after 3 days. Contact your physician immediately for a fever, chills or a temperature of 101.5? F or greater. 4. Take your medication exactly as prescribed by your physician. Do not attempt to wean yourself off any of your medications even though your pain is improving. This process needs to be carefully monitored by your doctor. Take any antibiotics prescribed exactly as directed and until they are gone. 5. Avoid stretching, bending, pulling, twisting or any sudden movements. Do not bend or twist at the waist. Wear back brace at all times 6. No lifting greater than 5 pounds. 7. Do not operate a motor vehicle, equipment or a power tool while taking pain medication 8. Do not have any manipulation done by a chiropractor or any other physician without first consulting with the surgeon 9. Please contact our office if you are even scheduled for a CT scan or an MRI. 10. Please call us if you have any questions, problems or concerns. Please Follow Up With: Jak Cooper DO When: 3 weeks Meaningful Use Info Meaningful Use Meaningful Use Diagnoses (Choose all that apply): None applicable Ischemic Stroke Statin Dosing Therapy Reference: STATIN DOSE THERAPY REFERENCE: * Patients > 75 years receive moderate or high dose statin therapy. * Patients 75 years or YOUNGER should receive HIGH intensity statin dose unless contraindicated. You will be required to document reason for non-treatment if statin daily dose does not meet guidelines. HIGH DOSE STATIN THERAPY DAILY Atorvastatin > than or = to 40 mg Rosuvastatin > than or = to 20 mg Amlodipine + Atorvastatin > than or = to 2.5/40 mg Ezetimibe + Simvastatin 10/80 mg Simvastatin 80mg Discharge Plan Admission Admit Date/Time: 01/05/24 09:21 Attending Provider: Jak Cooper Primary Care Provider: Care Physician,No Primary Consulting Providers: Orly Maradiaga Instructions Additional Instructions / Restrictions: 1. During your procedure, you received sedation through your IV. Please follow these instructions for the next 24 hours: Do not drive a motor vehicle, do not drink any alcoholic beverages, and do not sign any legal documents or make personal or business decisions. A responsible adult should stay with you at least 6 hours after the procedure. 2. Keep your surgical site/incision clean and the dressing dry and intact. You may use an ice pack at the surgical site to reduce any swelling or discomfort. 3. Monitor the incision site for any signs or symptoms of infection. Watch for redness, excessive swelling or drainage, or continued pain at the incision site after 3 days. Contact your physician immediately for a fever, chills or a temperature of 101.5? F or greater. 4. Take your medication exactly as prescribed by your physician. Do not attempt to wean yourself off any of your medications even though your pain is improving. This process needs to be carefully monitored by your doctor. Take any antibiotics prescribed exactly as directed and until they are gone. 5. Avoid stretching, bending, pulling, twisting or any sudden movements. Do not bend or twist at the waist. Wear back brace at all times 6. No lifting greater than 5 pounds. 7. Do not operate a motor vehicle, equipment or a power tool while taking pain medication 8. Do not have any manipulation done by a chiropractor or any other physician without first consulting with the surgeon 9. Please contact our office if you are even scheduled for a CT scan or an MRI. 10. Please call us if you have any questions, problems or concerns. Discharge Orders/Prescriptions Prescriptions: New hydrocodone-acetaminophen 5-325 mg tablet 1 tab PO Q6H 7 Days Qty: 28 0RF Continued levothyroxine 200 mcg capsule 200 mcg PO DAILY hydrochlorothiazide 25 mg tablet 25 mg PO DAILY trazodone 100 mg tablet 200 mg PO QHS lisinopril 20 mg tablet 20 mg PO QHS acetaminophen [Acetaminophen Extra Strength] 500 mg tablet 1,000 mg PO Q6H PRN PRN (Reason: pain) Referrals / Follow Up: Jak Cooper DO [Med Staff - Active Staff] - Care Physician,No Primary [Primary Care Provider] - Disposition Disposition (needs filled in before D/C Order can be placed): Home, Self Care
--- NOTE | 2024-01-05 09:20 | RAD_ITS ---
PROCEDURE: L5-S1 posterior fusion. DATE OF EXAMINATION: January 05, 2024. INDICATION: Female, 73 years old. Low back pain FLUOROSCOPY TIME (if supplied): (2 minutes and 26 seconds.) minutes/seconds. 127.7 mGy. 7 images were submitted. RADIATION DOSAGE (If Supplied By Facility): CTDIvol = ( ) mGy, DLP = ( ) mGycm RAD/Lumbar Spine 2 or 3 Views IMPRESSION: Intraoperative imaging services provided for L5-S1 laminectomy and interpedicular screw fixation. Electronically Signed: Rajiv Foreman MD at 14:07 EDT ,
[2024-01-05] MEDS: Clindamycin 900 MG/50 ML BAG 75 MG IV ×2 (10:09→17:59)
[2024-01-05 10:15] LABS: Bedside Glucose 109 mg/dL (74-106)
[2024-01-05] MEDS: Heparin 10,000 UNITS/10 ML Vial 10000 UNITS (10:30)
[2024-01-05] MEDS: THROMBIN (RECOMBINANT) 20,000 UNIT VIAL 20000 UNIT TOPICAL (11:06)
[2024-01-05] MEDS: Bupivacaine 0.25% 30 ML Vial (13:35)
--- NOTE | 2024-01-05 13:53 | PN.HOSP_ITS ---
Reason for Visit Reason for Visit: Diagnoses Spinal stenosis, lumbar region without neurogenic claudication (01/05/24) Encounter for other preprocedural examination (01/05/24) Subjective Subjective Patient is s/p L5-S1 posterior lumbar interbody fusion, intervertebral biomechanical Vice insertion, structural allograft for spinal fusion, L5 and S1 bilateral laminectomies, foraminotomies, facetectomies, decompression of bilateral nerve roots, L5-S1 posterolateral fusion, pedicle screw fixation per Dr. Cooper secondary to ongoing lumbar back pain secondary to stenosis. Patient evaluated in PACU with no specific pain complaints but she is very fatigued and lethargic with recent pain medication and anesthetics. She can follow several exam requests and is able to move her lower extremities at this time. Patient without evidence of fevers, chills, nausea, emesis, abdominal pain, chest pain or dyspnea. Objective Data Objective Data Vital Signs: Vital Signs Temp Pulse Resp BP Pulse Ox O2 Del Method 99.2 F H 71 16 119/73 97 Room Air 01/05/24 08:47 01/05/24 08:47 01/05/24 08:47 01/05/24 08:47 01/05/24 08:47 01/05/24 08:47 Oxygen Delivery Method Room Air Weight: 221 lb Body Mass Index (BMI) 39.1 Intake & Output: Intake and Output for Last 24 Hours 01/03/24 01/04/24 01/05/24 23:59 23:59 23:59 Intake Total 152 / 152 Output Total 100 / 100 Balance 52 / 52 Lab / Micro Data 12/06/23 10:30 12/06/23 10:30 Labs: Laboratory Results - last 24 hr 01/05/24 08:44: POC Glucose 109 H Micro: Microbiology 12/09/23 10:14 Swab (Method) Nasal Screen MRSA/MSSA - Final Physical Exam Narrative Physical Examination: General: Awakens to stimuli and discussions, intermittently appears alert, oriented to self and is aware that she is in PACU and can follow some exam request but patient is still very lethargic and fatigued status post recent ORN pain as well as anesthetic medications, laying in the PACU bed with no acute distress currently. Skin: Normal color, normal turgor, no icterus, no cyanosis except for noted skin fold intertrigo as well as recent lumbar intervention with dressing in place without drainage. HEENT: AT/NC, EOMI appear intact but difficult as patient is lethargic and following exam requests slowly, PERRLA, dry MM. Lungs: Diminished, greater bases, decreased effort for deep inspiratory effort likely secondary to still being lethargic, no rales, ronchi or wheezing. Heart: Regular rate and rhythm; no gallop, rub audible. Abdomen: Soft, morbidly obese, NTTP, distant BS, difficult to discern distention and HSM given habitus, see skin. Extremities: No cyanosis, no clubbing, bilateral ankle not markedly pitting edema suspect likely chronic. Neurological: Awakens to stimuli and discussions, intermittently appears alert, oriented to self and is aware that she is in PACU and can follow some exam request but patient is still very lethargic and fatigued status post recent ORN pain as well as anesthetic medications, laying in the PACU bed with no acute distress currently,, cognitive function improving but still not baseline intact; pupils equally reactive to light and accommodation, cranial nerves grossly normal, moving all 4 extremities, strength remains severely globally decreased given recent intervention and anesthetic/pain regimen with notable lethargy. Psychiatric: Affect appears flat, fatigued, lethargic status post recent OR, no acute evidence of depressive or anxiety feelings. Assessment & Plan Assessment/Plan (1) Lumbar stenosis: PLAN: Plan The patient is a 73 y/o F w/ PMHx: Morbid obesity, Former tobacco use, HTN, Hypothyroidism, Anxiety and Depression, Chronic lumbar back pain who presents to the [facility] on 01/05/24 for planned L5-S1 posterior lumbar interbody fusion, intervertebral biomechanical Vice insertion, structural allograft for spinal fusion, L5 and S1 bilateral laminectomies, foraminotomies, facetectomies, decompression of bilateral nerve roots, L5-S1 posterolateral fusion, pedicle screw fixation per Dr. Cooper. #1. Chronic lumbar back pain: Failed conservative therapies and treatments, admitted per Dr. Cooper, status post 01/05/24 for planned L5-S1 posterior lumbar interbody fusion, intervertebral biomechanical Vice insertion, structural allograft for spinal fusion, L5 and S1 bilateral laminectomies, foraminotomies, facetectomies, decompression of bilateral nerve roots, L5-S1 posterolateral fusion, pedicle screw fixation, post-operative pain management, bowel regimen, DVT Prophylaxis, PT/OT/CM per Orthopedic surgery discretion. #2. Hypertension: Continue home regimen including hydrochlorothiazide, lisinopril, PRN hydralazine. #3. Hypothyroidism: We will continue patient home levothyroxine regimen. #4. Anxiety and depression: Would continue patient trazodone regimen however this is high dose thus would be cautious with narcotic therapy concurrently, if ongoing mood disorder issues certainly would benefit from consideration of broadening her regimen. #5. Morbid Obesity: Weight loss and lifestyle changes encouraged. #6. Former tobacco use: Encourage continued tobacco cessation. #7. Intertrigo: Will add nystatin topical to be initiated upon transition to the floor from PACU and skin folds. #8. DVT prophylaxis: Encourage SCDs, defer chemoprophylaxis to orthopedic surgery given recent OR. Charges/Coding Visit Charges Inpatient E&M: 39474 Subs Hosp L3
--- NOTE | 2024-01-05 14:22 | PCM.POST.ANE ---
Anesthesia: Postop Eval I Current Vital Signs Temperature: 97 F Pulse Rate: 88 Blood Pressure: 97/83 Respiratory Rate: 16 Pulse Ox: 92 Oxygen Delivery Method: Nasal Cannula Oxygen Flow Rate (L/min): 2 Assessment Airway patent: Yes Spontaneous unlabored respirations: Yes Mental status: Awake and Calm nausea: No Vomiting: No Anesthesia Complication: No Fluid Hydration Crystalloid volume administer (ml): 2,200 Total IV fluid infused: 2,200 Progress Note Anesthesia document: Postop Eval 1 completed: Yes
[2024-01-05] MEDS: Lactated Ringers 1,000 ML 100 ML IV (16:20)
[2024-01-05] MEDS: 0.9% Normal Saline (250mL Bag) 250 ML 15 ML IV (17:59)
[2024-01-05] MEDS: oxyCODONE 5 MG Tablet PO (20:01)
[2024-01-05] MEDS: Nystatin Powder 15gm Bottle 1 APPLIC TOPICAL (21:08)
[2024-01-05] MEDS: Lisinopril 20 MG Tablet PO (21:08)
[2024-01-05] MEDS: traZODone 100 MG Tablet 200 MG PO (21:08)
[2024-01-06] MEDS: oxyCODONE 5 MG Tablet PO ×2 (01:39→05:58)
[2024-01-06] MEDS: Lactated Ringers 1,000 ML 100 ML IV (01:39)
[2024-01-06] MEDS: Clindamycin 900 MG/50 ML BAG 75 MG IV (01:41)
[2024-01-06 03:57] VITALS: BP 103/61; PULSE 87; RESP 16; TEMP 36.6; O2SAT 95
[2024-01-06] MEDS: Acetaminophen 500 MG Tablet 1000 MG PO ×2 (05:10→14:23)
[2024-01-06] MEDS: Nystatin Powder 15gm Bottle 1 APPLIC TOPICAL (05:11)
[2024-01-06] MEDS: Levothyroxine 100 MCG Tablet 200 MCG PO (05:11)
--- NOTE | 2024-01-06 07:12 | PCM.PN.HOSP ---
Reason for Visit Reason for Visit: Diagnoses Spinal stenosis, lumbar region without neurogenic claudication (01/05/24) Encounter for other preprocedural examination (01/05/24) Subjective Subjective 73-year-old lady who underwent L5-S1 posterior lumbar interbody fusion by Dr. Perez the hospitalist service consulted to assist with patient comorbidities postoperatively Objective Data Objective Data Vital Signs: Vital Signs Temp Pulse Resp BP Pulse Ox O2 Del Method O2 Flow Rate 98 F 87 16 103/61 95 Room Air 2 01/06/24 03:57 01/06/24 03:57 01/06/24 03:57 01/06/24 03:57 01/06/24 03:57 01/06/24 03:57 01/05/24 23:57 Oxygen Flow Rate (L/min) 2 Oxygen Delivery Method Room Air Weight: 100.244 kg Body Mass Index (BMI) 39.1 Intake & Output: Intake and Output for Last 24 Hours 01/04/24 01/05/24 01/06/24 23:59 23:59 23:59 Intake Total 2430.75 / 2430.75 1443.00 / 1443.00 Output Total 100 / 500 700 / 700 Balance 2330.75 / 1930.75 743.00 / 743.00 Lab / Micro Data 12/06/23 10:30 12/06/23 10:30 Labs: Laboratory Results - last 24 hr 01/05/24 08:44: POC Glucose 109 H Micro: Microbiology 12/09/23 10:14 Swab (Method) Nasal Screen MRSA/MSSA - Final Radiography Diagnostic Testing: Radiology Impression Lumbar Spine X-Ray 01/05/24 09:20 IMPRESSION: Intraoperative imaging services provided for L5-S1 laminectomy and interpedicular screw fixation. Electronically Signed: Rajiv Foreman MD at 14:07 EDT , Physical Exam Narrative GENERAL: cooperative HEENT: Atraumatic; normocephalic EYES; Anicteric, Normal Conjunctiva NECK; supple, normal thyroid, RESPIRATORY: Diminished to auscultation CARDIOVASCULAR: Regular S1 S2, GI: soft, normoactive bowel sounds, : No Renal angle tenderness; EXTREMITIES: No edema, no clubbing, MUSCULOSKELETAL: no muscle wasting NEURO: Awake; no lateralizing signs. SKIN: No Rash PSYCH; Flat affect Assessment & Plan Assessment/Plan (1) Lumbar stenosis: PLAN: Plan 73-year-old lady who underwent L5-S1 posterior lumbar interbody fusion by Dr. Perez the hospitalist service consulted to assist with patient comorbidities postoperatively 1. Chronic lumbar back pain -Patient apparently failed conservative management. L5-S1 posterior lumbar interbody fusion, intervertebral biomechanical Vice insertion, structural allograft for spinal fusion, L5 and S1 bilateral laminectomies, foraminotomies, facetectomies, decompression of bilateral nerve roots, L5-S1 posterolateral fusion, pedicle screw fixation on 01/05/[address] Cooper. Patient postoperative orders regarding pain management DVT prophylaxis as well as PT OT deferred to primary service 2. Hypertension - Blood pressure controlled, home medications continued with dose adjustment as needed 3. Assessment hypothyroidism 4. Class II obesity with BMI of 39.1 ? Complicating care weight loss advised 5. DVT prophylaxis ? Defer to primary service Time spent in the patient's overall evaluation,decision-making process, review of diagnostic data, adjustment of management, discussion with other providers, nursing nursing and ancillary staff involved in patient's care documentation, 36 Minutes Charges/Coding Visit Charges Inpatient E&M: 59810 Subs Hosp L2
--- NOTE | 2024-01-06 07:36 | POSTOPAN2_ITS ---
Anesthesia Postop Eval I Sum Postop Eval Completion status Anesthesia document: Postop Eval 1 completed: Yes Anesthesia Postop Eval I Summary Anesthesia Postop Eval I Summary: Anesthesia Postop Eval I: Assessment Summary Airway patent Yes 01/05/24 14:23 GUNNER'S MATE G.MDOT Spontaneous unlabored Yes 01/05/24 14:23 GUNNER'S MATE G.MDOT respirations Mental status Awake,Calm 01/05/24 14:23 GUNNER'S MATE G.MDOT nausea No 01/05/24 14:23 GUNNER'S MATE G.MDOT Vomiting No 01/05/24 14:23 GUNNER'S MATE G.MDOT Anesthesia Postop Eval I: Fluid Summary Crystalloid volume administer 2,200 01/05/24 14:23 GUNNER'S MATE G.MDOT (ml) Colloids volume administered ( ml) Blood Product volume administered (ml) Total IV fluid infused 2,200 01/05/24 14:23 GUNNER'S MATE G.MDOT Anesthesia Postop Eval I: Summary Notes Anesthesia Complication No 01/05/24 14:23 GUNNER'S MATE G.MDOT Anesthesia Complication Comment: Post-operative progress note Anesthesia: Postop Eval II Evaluation Mental status: Awake Pain Level: 0 nausea: No Vomiting: No Complications Anesthesia Complication: No
--- NOTE | 2024-01-06 07:36 | PCM.POSTANE2 ---
Anesthesia Postop Eval I Sum Postop Eval Completion status Anesthesia document: Postop Eval 1 completed: Yes Anesthesia Postop Eval I Summary Anesthesia Postop Eval I Summary: Anesthesia Postop Eval I: Assessment Summary Airway patent Yes 01/05/24 14:23 [email or web address] Spontaneous unlabored Yes 01/05/24 14:23 [email or web address] respirations Mental status Awake,Calm 01/05/24 14:23 [email or web address] nausea No 01/05/24 14:23 [email or web address] Vomiting No 01/05/24 14:23 [email or web address] Anesthesia Postop Eval I: Fluid Summary Crystalloid volume administer 2,200 01/05/24 14:23 [email or web address] (ml) Colloids volume administered ( ml) Blood Product volume administered (ml) Total IV fluid infused 2,200 01/05/24 14:23 [email or web address] Anesthesia Postop Eval I: Summary Notes Anesthesia Complication No 01/05/24 14:23 [email or web address] Anesthesia Complication Comment: Post-operative progress note Anesthesia: Postop Eval II Evaluation Mental status: Awake Pain Level: 0 nausea: No Vomiting: No Complications Anesthesia Complication: No
[2024-01-06 07:48] VITALS: BP 109/62; PULSE 81; RESP 16; TEMP 37.1; O2SAT 93
[2024-01-06] MEDS: Ensure Surgery 237 ML LIQUID PO (08:09)
[2024-01-06] MEDS: Lactated Ringers 1,000 ML 15 ML IV (09:03)
[2024-01-06] MEDS: Tamsulosin HCl 0.4 MG Capsule PO (09:03)
[2024-01-06] MEDS: hydroCHLOROthiazide 25 MG Tablet PO (09:05)
--- NOTE | 2024-01-06 10:49 | CASEMGMT ---
Pt has an order for DC placed. This RN CM to pt room at this time regarding DC planning. Pt currently has a back brace on. Pt states that she has a FWW and cane. Pt has her personal FWW with her at bedside. Pt states that she plans to DC to her [facility] home in [place]. Pt states that she plans to attend OP Tx in [place] and states that this is already set up and denies further needs or concerns with this. Pt denies the need for HHC. Pt [facility] states that she is comfortable and competent in changing the pt simple dressing. Pt denies any further needs at this time and is ready to DC to her [facility] home today. PLAN: DC to [facility] with OP Tx subsequently
--- NOTE | 2024-01-06 10:55 | PHA.DC.MC.R ---
Pharmacy [facility] Pharmacy Service has performed discharge medication reconciliation and counseling for this patient. The patient's discharge medication list was reviewed for discrepancies and discrepancies were resolved. The patient was counseled on the following discharge medications and changes in medications for homegoing were reviewed. 1. NORCO The Reason for Use, instructions for use, and potential side effects were reviewed for all new medications. The patient's questions regarding all of their medications were answered. The patient was able to verbally demonstrate an understanding of their discharge medications. The patient was counselled by Abdulkadir Sandra PharmD Candidate Medications at Discharge Home Medications acetaminophen 500 mg tablet (Acetaminophen Extra Strength) 1,000 mg PO Q6H PRN PRN pain 11/24/23 hydrochlorothiazide 25 mg tablet 25 mg PO DAILY 11/24/23 levothyroxine 200 mcg capsule 200 mcg PO DAILY 11/24/23 lisinopril 20 mg tablet 20 mg PO QHS 11/24/23 trazodone 100 mg tablet 200 mg PO QHS 11/24/23 hydrocodone-acetaminophen 5-325mg 5mg-325mg 1 tab PO Q6H 7 days #28 tabs 01/05/24
== END 2024-01-06 14:43 | disposition home or self-care (01) ==
LOC: SDC 14:30 → MS3 14:30
PROVIDERS: Anesthesiology; Admitting Provider Orthopaedic Surgery; Referring Provider Orthopaedic Surgery; Visit Provider Internal Medicine
PROC: 0SG00AJ Fusion of Lumbar Vertebral Joint with Interbody Fusion Device, Posterior Approach, Anterior Column, Open Approach (ICD-10-PCS; CPT 22630; principal; 2024-01-05 09:50)
DX: M48.07 Spinal stenosis, lumbosacral region (principal); Z68.41 Body mass index [BMI] 40.0-44.9, adult; E66.01 Morbid (severe) obesity due to excess calories; M51.17 Intervertebral disc disorders with radiculopathy, lumbosacral region; M47.27 Other spondylosis with radiculopathy, lumbosacral region; E03.9 Hypothyroidism, unspecified; Z79.890 Hormone replacement therapy; Z79.899 Other long term (current) drug therapy; Z87.891 Personal history of nicotine dependence; I10 Essential (primary) hypertension; F41.9 Anxiety disorder, unspecified; F32.A Depression, unspecified; L30.4 Erythema intertrigo; G89.29 Other chronic pain; Z68.39 Body mass index [BMI] 39.0-39.9, adult; Z86.2 Personal history of diseases of the blood and blood-forming organs and certain disorders involving the immune mechanism
CPT/HCPCS: 22633; 63052; 63053; 20936; 22853; 22842; 20930; 00670; 96361 ×2; 96365; 96366; 36415; 71046; 72100; 76000; 80048; 80076; 82962; 83735; 84443; 85025; 85610; 85730; 87081; 93005; 94668; 97162; 99221; C1713; J7050; J7120; G0378; J2405; J3475

== ENCOUNTER 2024-01-08 12:41 | Observation (INO) | payer MEDICARE, OTHER, SELFPAY ==
[2024-01-08 12:42] VITALS: BP 112/66; PULSE 95; RESP 16; TEMP 36.2; O2SAT 95
--- NOTE | 2024-01-08 13:09 | EDS_ITS ---
<Statement entered by Jake Church DO - 01/08/24 19:20> I have personally performed a face to face assessment of the patient and have reviewed the FABIOLA Note. HPI <KATINA Lopez - Last Filed: 01/08/24 20:24> History of Present Illness Chief Complaint: Complaint Narrative Narrative: Patient is a 73-year-old female with history of obesity, chronic back pain, lumbar stenosis. Patient on January 05, 2024, had a L5-S1 fusion by Dr. Cooper. Patient stayed 1 night in the hospital, then was sent home. Over the last 3 days, the patient is having difficulty caring for herself at home. Patient does live with her son, he states that the patient has fallen 3 times since she has been home, she has having difficulty making to the bathroom. She is urinating more than normal. Patient denies any significant back pain, she denies any numbness or tingling down her lower extremities, denies any saddle paresthesias, denies any fever chills nausea or vomiting. Patient believes that she might need admitted for social placement to go to a rehab facility. [facility] <KATINA Lopez - Last Filed: 01/08/24 20:24> [facility] Medical History (Updated 01/08/24 @ 15:37 by Laura Rosenberg) Hypothyroidism Post-menopausal Anxiety Thyroid disease Ambulates with cane Arthritis Easy bruising Injury of back Back pain Fall Loss of consciousness Hoarseness Former smoker History of pain when walking Hypertension Home Medications ?Medication ?Instructions ?Recorded ?Last Taken ?Type acetaminophen 500 mg tablet 1,000 mg PO Q6H PRN pain 11/24/23 01/07/24 History (Acetaminophen Extra Strength) hydrochlorothiazide 25 mg tablet 25 mg PO DAILY 11/24/23 01/07/24 History levothyroxine 200 mcg capsule 200 mcg PO DAILY 11/24/23 01/04/24 History lisinopril 20 mg tablet 20 mg PO QHS 11/24/23 01/07/24 History trazodone 100 mg tablet 200 mg PO QHS 11/24/23 01/07/24 History hydrocodone-acetaminophen 5-325mg 1 tab PO Q6H 7 days #28 tabs 01/05/24 01/07/24 Rx 5mg-325mg Allergy/AdvReac Type Severity Reaction Status Date / Time Penicillins Allergy Intermediate Hives Verified 01/08/24 12:41 Surgical History Hx of tubal ligation Hx of total knee replacement Social History Smoking Status: Former smoker ROS <PEG LopezC - Last Filed: 01/08/24 20:24> ROS ED ROS Narrative Constitutional: Negative for fever, chills, weight loss. Positive for weakness, frequent falls Eyes: Negative for vision loss, vision change, double vision ENT: Negative for any sore throat, ear pain, congestion Cardiovascular: Negative for any chest pain, tightness, palpitations Respiratory: Negative for any cough, sputum production, hemoptysis, dyspnea, dyspnea on exertion, orthopnea Gastrointestinal: Negative for any abdominal pain, nausea, vomiting, diarrhea, constipation, blood in stool, blood in vomit : Negative for any urinary dysuria, retention, blood in urine. Positive for urinary frequency Muscle skeletal: Negative for any neck pain, back pain Neurological: Negative for any headache, syncope, dizziness Skin: Negative for any rashes, itching, abrasions, lacerations Psychiatric: Negative for any depression, anxiety, stress, suicidal ideation, homicidal ideation Hematologic: Negative for any excessive bruising, easy bleeding EXAM <KATINA Lopez - Last Filed: 01/08/24 20:24> Physical Exam Narrative Exam Narrative: Vital signs reviewed. Alert and orient x 4, nontoxic-appearing. HEET: Head normocephalic atraumatic, TMs clear bilaterally. Posterior pharynx is clear, moist mucous membranes. Nares clear bilaterally. Neck: Supple with no lymphadenopathy or tenderness. No signs of meningismus. Cardiac: Regular rate and rhythm no murmurs gallops or rubs, equal peripheral pulses bilaterally. Respiratory: Lungs clear to auscultation bilaterally. No chest tenderness. Abdomen: Soft, nontender, nondistended. No abdominal bruit or pulsatile masses. No hepatosplenomegaly Extremities: No peripheral edema, no signs of gross trauma or deformity. Active full range of motion of all extremities. Patient has equal strength to bilateral lower extremities, no numbness or tingling. Able to dorsiflex, plantarflex against resistance. Equal Neuro: Cranial nerves II through XII intact, no focal neurological deficits. No saddle paresthesias, no red flag signs. Skin: Clean dry and intact with no rash, purpura, petechiae, vesicles or pustules. Backs/flank: No CVA tenderness, no midline spinal tenderness, no deformity. I did look at the incision site to the lower back, it looks well-appearing, no redness, no swelling, no edema. Psych: Normal mood and affect. No SI, HI or acute psychosis. Const Vital Signs: 01/08/24 12:42 01/08/24 14:24 Temperature 97.1 F L 97.1 F L Temperature Source Temporal Pulse Rate 95 95 Respiratory Rate 16 16 Blood Pressure 112/66 112/66 Blood Pressure Mean 81 81 Pulse Ox 95 95 Oxygen Delivery Method Room Air Positive well nourished and well developed General Appearance ED: well developed <Dr. Jake Church DO - Last Filed: 01/08/24 19:20> Physical Exam Const Vital Signs: 01/08/24 12:42 01/08/24 14:24 Temperature 97.1 F L 97.1 F L Temperature Source Temporal Pulse Rate 95 95 Respiratory Rate 16 16 Blood Pressure 112/66 112/66 Blood Pressure Mean 81 81 Pulse Ox 95 95 Oxygen Delivery Method Room Air MDM <KATINA Lopez - Last Filed: 01/08/24 20:24> MDM Lab Data Labs: Laboratory Results - last 24 hr 01/08/24 01/08/24 13:17 13:31 WBC 14.0 H RBC 2.98 L Hgb 9.0 L Hct 28.0 L MCV 94.0 MCH 30.2 MCHC 32.1 RDW Std Deviation 46.1 H RDW Coeff of Radha 13.4 Plt Count 272 MPV 8.4 Immature Gran % (Auto) 0.600 Neut % (Auto) 82.1 H Lymph % (Auto) 9.5 L [place] % (Auto) 7.2 Eos % (Auto) 0.4 Baso % (Auto) 0.2 Absolute Neuts (auto) 11.5 H Absolute Lymphs (auto) 1.33 Nucleated RBC % 0 Sodium 137 Potassium 3.6 Chloride 107 Carbon Dioxide 26.0 Anion Gap 4 L BUN 11 Creatinine 0.81 Est GFR (MDRD) Af Amer 90 Est GFR (MDRD) Non-Af 74 BUN/Creatinine Ratio 13.6 Glucose 120 H Calcium 8.7 Urine Color Yellow Urine Clarity Clear Urine pH 6.0 Ur Specific [place] 1.015 Urine Protein 15 H Urine Glucose (UA) Normal Urine Ketones 15 H Urine Occult Blood Negative Urine Nitrite Negative Urine Bilirubin Negative Urine Urobilinogen Normal Ur Leukocyte Esterase Negative Urine RBC 0 SEEN Urine WBC 0 SEEN Ur Squamous Epith Cells 0-5 SEEN Urine Bacteria 0 SEEN Urine Mucus 0 SEEN Radiography Diagnostic Testing: Clinical Impression(s) from Imaging Studies Chest X-Ray 01/08/24 13:33 IMPRESSION: No acute cardiopulmonary process identified. Electronically Signed: Radha Woods MD at 14:03 EDT , Treatment and Re-Evaluation :: Differential diagnosis includes however is not limited to: Failure to thrive, sequelae from the surgery, worsening lumbar stenosis, cauda equina, infection Patient appears to be in no obvious distress vital signs are stable, patient is nontoxic-appearing. Presenting to the emergency department for difficulty ambulating, frequent falls, inability care for self after having lumbar spinal surgery. Dr. Cooper did call, he agrees that if the neurological showed any red flag signs to obtain a stat MRI. However it seems to the patient needs admitted for placement to a rehab facility. On my initial evaluation, I do agree, I do believe the patient needs admission for a social admit for rehabilitation. Patient's neurologic exam was unremarkable, patient shows no signs or symptoms of cauda equina, no saddle paresthesias, no evidence of any infection. Patient received basic laboratory values, chest x-ray, urinalysis to rule out any UTI and then will be admitted to the hospital. All radiologic examinations were read, reviewed by the emergency department attending. From these reads, a plan of care will be put in place. Patient's chest x-ray was unremarkable, urinalysis was negative for any infection. Patient's laboratory values showed a slight leukocytosis with white blood count of 14.0, this could be reactive, hemoglobin 9.0 could this could be secondary to the surgery. Patient's chemistries were unremarkable. I will reach out to hospitalist. <Dr. Jake Church, DO - Last Filed: 01/08/24 19:20> MDM History & Record Review Discussion w/independent historian: Patient and Family Lab Data Attestation: I reviewed the patient's lab results. Labs: Laboratory Results - last 24 hr 01/08/24 01/08/24 13:17 13:31 WBC 14.0 H RBC 2.98 L Hgb 9.0 L Hct 28.0 L MCV 94.0 MCH 30.2 MCHC 32.1 RDW Std Deviation 46.1 H RDW Coeff of Radha 13.4 Plt Count 272 MPV 8.4 Immature Gran % (Auto) 0.600 Neut % (Auto) 82.1 H Lymph % (Auto) 9.5 L [place] % (Auto) 7.2 Eos % (Auto) 0.4 Baso % (Auto) 0.2 Absolute Neuts (auto) 11.5 H Absolute Lymphs (auto) 1.33 Nucleated RBC % 0 Sodium 137 Potassium 3.6 Chloride 107 Carbon Dioxide 26.0 Anion Gap 4 L BUN 11 Creatinine 0.81 Est GFR (MDRD) Af Amer 90 Est GFR (MDRD) Non-Af 74 BUN/Creatinine Ratio 13.6 Glucose 120 H Calcium 8.7 Urine Color Yellow Urine Clarity Clear Urine pH 6.0 Ur Specific [place] 1.015 Urine Protein 15 H Urine Glucose (UA) Normal Urine Ketones 15 H Urine Occult Blood Negative Urine Nitrite Negative Urine Bilirubin Negative Urine Urobilinogen Normal Ur Leukocyte Esterase Negative Urine RBC 0 SEEN Urine WBC 0 SEEN Ur Squamous Epith Cells 0-5 SEEN Urine Bacteria 0 SEEN Urine Mucus 0 SEEN Radiography Diagnostic Testing: Clinical Impression(s) from Imaging Studies Chest X-Ray 01/08/24 13:33 IMPRESSION: No acute cardiopulmonary process identified. Electronically Signed: Radha Woods MD at 14:03 EDT , Treatment and Re-Evaluation :: Differential diagnosis includes however is not limited to: Failure to thrive, sequelae from the surgery, worsening lumbar stenosis, cauda equina, infection Patient appears to be in no obvious distress vital signs are stable, patient is nontoxic-appearing. Presenting to the emergency department for difficulty ambulating, frequent falls, inability care for self after having lumbar spinal surgery. Dr. Cooper did call, he agrees that if the neurological showed any red flag signs to obtain a stat MRI. However it seems to the patient needs admitted for placement to a rehab facility. On my initial evaluation, I do agree, I do believe the patient needs admission for a social admit for rehabilitation. Patient's neurologic exam was unremarkable, patient shows no signs or symptoms of cauda equina, no saddle paresthesias, no evidence of any infection. Patient received basic laboratory values, chest x-ray, urinalysis to rule out any UTI and then will be admitted to the hospital. All radiologic examinations were read, reviewed by the emergency department attending. From these reads, a plan of care will be put in place. Patient's chest x-ray was unremarkable, urinalysis was negative for any infection. Patient's laboratory values showed a slight leukocytosis with white blood count of 14.0, this could be reactive, hemoglobin 9.0 could this could be secondary to the surgery. Patient's chemistries were unremarkable. I will reach out to hospitalist. I have personally performed a face to face assessment of the patient and have reviewed the FABIOLA Note. I performed a substantive portion of the visit including all aspects of the following. My lennon findings include: History is 73-year-old female underwent lumbar fusion with Dr. Cooper last week. Since that time she has had difficulty ambulating with falls and inability to get to the bathroom in time before incontinence. She denies any loss of sensation. She denies fever. Patient and family spoke with Dr. Cooper who sent her to the emergency room for evaluation. Probable admission for rehabilitation placement. Exam is no focal neurologic deficits. Afebrile Medical Decison Making basic blood work urine were obtained. White count of 14 hemoglobin of 9 glucose 120. Urinalysis with no overt infection. Were not able to get the patient admitted directly to rehab at this time. Plan will be admission for placement Discharge Plan Disposition Disposition: Acute Care Hospital [facility] Discharge Date/Time: 01/08/24 15:17
[2024-01-08 13:26] LABS: Absolute Lymphocyte Count 1.33 X10^3/uL (0.83-4.51); Absolute Neutrophil Count 11.5 X10^3/uL (2.0-7.7); Basophil# 0.03 X10^3/uL; Basophil% 0.2 % (0-1); Eosinophil# 0.05 X10^3/uL; Eosinophils% 0.4 % (0-5); Lymphocyte # 1.33 X10^3/ul (0.83-4.51); Lymphocyte % 9.5 % (19-41); Mean Corp Hgb Conc 32.1 g/dL (32-36); Mean Corpuscular Hgb 30.2 pg (27.0-32.0); Mean Platelet Vol. 8.4 fl (6.2-12.0); Monocyte# 1.01 X10^3/uL; Monocyte% 7.2 % (0-10); NRBC Flagged by Analyzer 0 % (0-5); Neutrophil % 82.1 % (47-70); Platelet Count 272 K/mm3 (150-450); RBC Distribution Width CV 13.4 % (11.6-14.6); RBC Distribution Width SD 46.1 fl (35.1-43.9); Red Blood Count 2.98 M/mm3 (4.2-5.4)
--- NOTE | 2024-01-08 13:33 | RAD_ITS ---
HISTORY: cough. TECHNIQUE: XR Chest 1 View. COMPARISON: 12/06/2023. FINDINGS: CARDIOMEDIASTINAL BORDERS: Cardiac silhouette within normal limits in size. Mediastinal contour unremarkable. LUNGS: Chronic mild bibasilar atelectasis or scarring. PLEURA: No pleural effusion or pneumothorax seen. OSSEOUS STRUCTURES: Mild degenerative change. RAD/Chest 1 View (Portable) IMPRESSION: No acute cardiopulmonary process identified. Electronically Signed: Radha Woods MD at 14:03 EDT ,
[2024-01-08 13:36] LABS: Anion Gap 4 (5-15); BUN 11 mg/dL (7-18); BUN/Creat Ratio 13.6 RATIO (10-20); Calcium,Total 8.7 mg/dL (8.5-10.1); Chloride 107 mmol/L (98-107); Creatinine, Serum 0.81 mg/dL (0.55-1.02); EST Glomerular Filtration Rate 74 mL/min (>60); Est Glom Filt Rate - Afr Amer 90 mL/min (>60); Glucose 120 mg/dL (74-106); Potassium 3.6 mmol/L (3.5-5.1); Sodium Level 137 mmol/L (136-145)
[2024-01-08 13:42] LABS: Bacteria 0 SEEN /hpf (None Seen); Mucous, Urine 0 SEEN /hpf (<or=2+); Red Blood Cells-Urine 0 SEEN /hpf (0-5); White Blood Cells 0 SEEN /hpf (0-5)
[2024-01-08 13:44] LABS: Color, Urine Yellow (Yellow); Glucose, Dipstick Normal (Normal); Ketone-Dipstick 15 mg/dl (Negative); Leukocyte Esterase-Dipstick Negative /ul (Negative); Nitrite-Dipstick Negative (Negative); Occult Blood-Urine Negative /ul (Negative); Protein-Dipstick 15 mg/dl (Negative); Specific Gravity, Urine 1.015 (1.002-1.030); Urine Bilirubin Dipstick Negative (Negative); Urine Clarity Clear (Clear); Urine Urobilinogen Normal (Normal)
[2024-01-08 13:50] LABS: Squamous Epithelial Cells - UA 0-5 SEEN /hpf (5-10)
[2024-01-08 14:24] VITALS: BP 112/66; PULSE 95; RESP 16; TEMP 36.2; O2SAT 95
--- NOTE | 2024-01-08 15:18 | HP.PCM.HOS_ITS ---
HPI - General General Date of Admission: 01/08/24 Date of Service: 01/08/24 Chief Complaint: Debility, low back pain HPI Narrative MERARY CAT, is a 73 F who presents to the emergency room at [facility] with complaints of postop back pain which is not allowing her to perform her ADLs, she is living with her son who states the patient is fallen 3 times since she has been home, patient is also having a hard time making it to the restroom at home. Patient had an L5-S1 fusion and was discharged from the hospital here on 01/06/2024. At the time of discharge, she did not feel she needed home health. She contacted her back surgeon today who recommended that she go to the emergency room for possible admission to the hospital and placement in a rehab/halfway facility. Labs obtained in the emergency room showed an elevated white blood cell count of 14,000, hemoglobin was 9, and her chemistry profile was unremarkable. I had a long talk with the patient and her son concerning going into a rehab facility, I also called the rehab unit here at the hospital to see if they had any open beds and it appears they may have to open beds but there is nobody here today to verify this and we will have to do more investigation on this tomorrow. Patient will be placed in observation status on MedSurg, PT and OT will see her, she will be placed on IV and p.o. pain medications as needed. [facility] Medical History (Updated 01/08/24 @ 15:37 by Laura Rosenberg) Hypothyroidism Post-menopausal Anxiety Thyroid disease Ambulates with cane Arthritis Easy bruising Injury of back Back pain Fall Loss of consciousness Hoarseness Former smoker History of pain when walking Hypertension Home Medications ?Medication ?Instructions ?Recorded ?Last Taken ?Type acetaminophen 500 mg tablet 1,000 mg PO Q6H PRN pain 11/24/23 01/07/24 History (Acetaminophen Extra Strength) hydrochlorothiazide 25 mg tablet 25 mg PO DAILY 11/24/23 01/07/24 History levothyroxine 200 mcg capsule 200 mcg PO DAILY 11/24/23 01/04/24 History lisinopril 20 mg tablet 20 mg PO QHS 11/24/23 01/07/24 History trazodone 100 mg tablet 200 mg PO QHS 11/24/23 01/07/24 History hydrocodone-acetaminophen 5-325mg 1 tab PO Q6H 7 days #28 tabs 01/05/24 01/07/24 Rx 5mg-325mg Allergy/AdvReac Type Severity Reaction Status Date / Time Penicillins Allergy Intermediate Hives Verified 01/08/24 12:41 Surgical History Hx of tubal ligation Hx of total knee replacement Social History Smoking Status: Former smoker ROS Constitutional Constitutional: Denies anorexia, change in weight, chills, fatigue, fever(s), malaise, night sweats or weakness Eyes Eyes: Denies blurry vision, change in vision, discharge from eye(s) or eye pain Cardiovascular Cardiovascular: Denies chest pain, claudication, edema or palpitations Respiratory/Chest Respiratory/Chest: Denies cough, hemoptysis, shortness of breath at rest or shortness of breath with exertion Gastrointestinal Gastrointestinal: Denies abdominal pain, constipation, diarrhea, hematemesis, hematochezia, melena, nausea or vomiting Genitourinary Genitourinary: Denies dysuria, hematuria, urinary frequency, urinary hesitancy, urinary incontinence or urinary urgency Musculoskeletal Musculoskeletal: Reports back pain; Denies joint pain, joint stiffness, joint swelling, myalgias or neck pain Neurologic Neurologic: Denies abnormal gait, abnormal speech, confusion, disequilibrium, dizziness, focal weakness, headache(s), loss of vision, numbness, other visual disturbances, paresthesias, syncope or tingling Psychiatric Psychiatric: Denies anxiety, cognitive impairment, depression, irritability, mood swings or suicidal ideation Endocrine Endocrinology: Denies change in body appearance, cold intolerance, excessive sweating, heat intolerance, polydipsia or polyuria Hematologic/Lymphatic Hematologic/Lymphatic: Denies none, anemia, easy bleeding, easy bruising or lymphadenopathy Allergic/Immunologic Allergic/Immunologic: Denies rhinitis, urticaria, eczemia or asthma Vital Signs Vital Signs Vital Signs: 01/08/24 12:42 01/08/24 14:24 Temperature 97.1 F L 97.1 F L Temperature Source Temporal Pulse Rate 95 95 Respiratory Rate 16 16 Blood Pressure 112/66 112/66 Blood Pressure Mean 81 81 Pulse Ox 95 95 Oxygen Delivery Method Room Air Physical Exam Const alert, oriented x3 and no apparent distress General Appearance: cooperative, well kempt and well developed Orientation / Consciousness: awake, oriented to person, oriented to place and oriented to time HEENT normocephalic and moist oral mucous membranes Eyes PERRL, EOMs intact bilaterally and conjunctivae normal Neck supple, no JVD, thyroid normal and no carotid bruits General: trachea midline Resp normal respiratory effort, no retractions, no use of accessory muscles and clear to auscultation bilaterally Auscultation: Negative for rales, rhonchi or wheezes Cardio regular rate, regular rhythm, S1 normal heart sound, S2 normal heart sound, no murmurs, no rub and no gallops GI normal to inspection, nondistended, normoactive bowel sounds, soft to palpation, non-tender and non-distended Extremity no clubbing, cyanosis or edema Skin no rashes or lesions noted General Skin Exam: no breakdown Neuro oriented x3, CN's II-XII intact bilaterally, moves all extremities, no focal motor deficits and no sensory deficits noted Neuro Narrative: Patient was unable to ambulate independently and required 2 individuals to help her get up out of bed. Sensorium / Orientation: awake and alert Speech: speech normal Psych affect normal Results Lab / Micro Data 01/08/24 13:17 01/08/24 13:17 Labs: Laboratory Results - last 24 hr 01/08/24 13:17: WBC 14.0 H, RBC 2.98 L, Hgb 9.0 L, Hct 28.0 L, MCV 94.0, MCH 30.2, MCHC 32.1, RDW Std Deviation 46.1 H, RDW Coeff of Radha 13.4, Plt Count 272, MPV 8.4, Immature Gran % (Auto) 0.600, Neut % (Auto) 82.1 H, Lymph % (Auto) 9.5 L, [place] % (Auto) 7.2, Eos % (Auto) 0.4, Baso % (Auto) 0.2, Absolute Neuts (auto) 11.5 H, Absolute Lymphs (auto) 1.33, Nucleated RBC % 0, Sodium 137, Potassium 3.6, Chloride 107, Carbon Dioxide 26.0, Anion Gap 4 L, BUN 11, Creatinine 0.81, Est GFR (MDRD) Af Amer 90, Est GFR (MDRD) Non-Af 74, BUN/Creatinine Ratio 13.6, Glucose 120 H, Calcium 8.7 01/08/24 13:31: Urine Color Yellow, Urine Clarity Clear, Urine pH 6.0, Ur Specific [place] 1.015, Urine Protein 15 H, Urine Glucose (UA) Normal, Urine Ketones 15 H, Urine Occult Blood Negative, Urine Nitrite Negative, Urine Bilirubin Negative, Urine Urobilinogen Normal, Ur Leukocyte Esterase Negative, Urine RBC 0 SEEN, Urine WBC 0 SEEN, Ur Squamous Epith Cells 0-5 SEEN, Urine Bacteria 0 SEEN, Urine Mucus 0 SEEN Imaging Radiology Impression Chest X-Ray 01/08/24 13:33 IMPRESSION: No acute cardiopulmonary process identified. Electronically Signed: Radha Woods MD at 14:03 EDT , Assessment & Plan Assessment/Plan (1) Lumbar stenosis: PLAN: Plan 1. Acute debility secondary to recent L5-S1 fusion-patient will be placed into observation status on [facility], she will be seen by PT and OT, IV and p.o. pain medicines were ordered, discharge planning will to see if there is a bed available in the rehab unit tomorrow for the patient to be transferred to for inpatient rehab services. Patient understands that it may be necessary for her to pay for a short stay in a senior care although she cannot afford this. #2 essential hypertension-patient is on lisinopril, and will be adjusted as necessary #3 hypothyroidism-patient is on Synthroid #4 morbid obesity-complicates care, management, recovery, and prognosis Total clinical time spent by myself addressing the patient's medical issues, reviewing all of her data, and collaborating with patient's care team: 55 minutes Charges/Coding Visit Charges Inpatient E&M: 56510 Init Hosp L2
[2024-01-08 15:33] VITALS: BMI 41.1
[2024-01-08 16:10] VITALS: BMI 41.1
[2024-01-08 19:53] VITALS: BP 121/65; PULSE 85; RESP 18; TEMP 37.2; O2SAT 97
[2024-01-08] MEDS: traZODone 100 MG Tablet 200 MG PO (20:01)
[2024-01-08] MEDS: Heparin Injection (Vial) 5,000 UNIT/ML VIAL 5000 UNIT SC (20:01)
[2024-01-08] MEDS: Acetaminophen 500 MG Tablet 1000 MG PO (20:02)
[2024-01-08] MEDS: Lisinopril 20 MG Tablet PO (20:02)
[2024-01-09 02:53] VITALS: BP 113/63; PULSE 66; RESP 18; TEMP 36.9; O2SAT 97
[2024-01-09] MEDS: Levothyroxine 100 MCG Tablet 200 MCG PO (06:41)
[2024-01-09] MEDS: Acetaminophen 500 MG Tablet 1000 MG PO ×2 (06:41→13:45)
[2024-01-09] MEDS: Heparin Injection (Vial) 5,000 UNIT/ML VIAL 5000 UNIT SC (09:12)
[2024-01-09] MEDS: hydroCHLOROthiazide 25 MG Tablet PO (09:12)
[2024-01-09] MEDS: Polyethylene Glycol 3350 17 GM PACKET PO (09:13)
[2024-01-09 09:22] VITALS: BP 127/61; PULSE 71; RESP 18; TEMP 36.6; O2SAT 95
--- NOTE | 2024-01-09 10:28 | CASEMGMT ---
Addendum entered by Milagros 01/09/24 11:28: Social Work- IRU accepted pt referral. notified. Pt notified. INESSA Cat Original Note: Social Work- Physician indicated that pt would like IRU referral. SIDRA met with pt who declined a SNF list and reports that she would like referral to IRU. SIDRA completed referral. INESSA Cat
--- NOTE | 2024-01-09 11:25 | TREXTCAR_ITS ---
Diet Diet Order/Speech Therapy: 01/08/24 15:25 Diet: Regular - General Food consistency:: Regular Liquid Consistency:: Regular/Thin Dietary Modifications:: No Added Salt Wound(s) Lumbar: Wound Type: Surgical Incision Therapies Weight Bearing: Full weight bearing Physical Therapy: Eval and Treat Occupational Therapy: Eval and Treat Problem/Diagnosis (1) Lumbar stenosis: Status: Acute Code(s): M48.061 - Spinal stenosis, lumbar region without neurogenic claudication Plan 1. Acute debility secondary to recent L5-S1 fusion-patient will be placed into observation status on [facility], she will be seen by PT and OT, IV and p.o. pain medicines were ordered, discharge planning will to see if there is a bed available in the rehab unit tomorrow for the patient to be transferred to for inpatient rehab services. Patient understands that it may be necessary for her to pay for a short stay in a snf although she cannot afford this. #2 essential hypertension-patient is on lisinopril, and will be adjusted as necessary #3 hypothyroidism-patient is on Synthroid #4 morbid obesity-complicates care, management, recovery, and prognosis Total clinical time spent by myself addressing the patient's medical issues, reviewing all of her data, and collaborating with patient's care team: 55 minutes Allergies/Procedures Done in Hospital Allergies Penicillins Allergy (Intermediate, Verified 01/08/24 12:41) Hives Procedures: None Type of Care/Length of Stay Estimated LOS: Convalescent Care Less Than 30 days Type of Care Needed: Acute Rehab Rehab Potential: Good Prognosis: Good Additional Orders/Day of Discharge H&P will serve as current which was dated: 01/08/24 Day of Discharge: 01/09/24 Dietary and Speech Recommendations Dietitian Recommendations/Changes: Change diet to Regular No Added Salt d/t issues w/ edema Discharge Plan Admission Admit Date/Time: 01/08/24 14:41 Primary Reason for Your Visit: S/P lumbo/sacral fusion with debility Attending Provider: Humberto Grigsby Primary Care Provider: Care Physician,No Primary Discharge Orders/Prescriptions Prescriptions: New hydrocodone-acetaminophen 5-325 mg Tablet 1 - 2 tab PO Q6H PRN PRN (Reason: Pain Score 1-10) Qty: 0 0RF acetaminophen 500 mg Tablet 1,000 mg PO Q8 Qty: 0 0RF heparin (porcine) 5,000 unit/mL Solution 5,000 unit subcut Q12 Qty: 0 0RF polyethylene glycol 3350 [Miralax] 17 gram/dose powder 17 g PO DAILY Qty: 119 0RF Continued levothyroxine 200 mcg capsule 200 mcg PO DAILY hydrochlorothiazide 25 mg tablet 25 mg PO DAILY trazodone 100 mg tablet 200 mg PO QHS lisinopril 20 mg tablet 20 mg PO QHS Discontinued acetaminophen [Acetaminophen Extra Strength] 500 mg tablet 1,000 mg PO Q6H PRN (Reason: pain) hydrocodone-acetaminophen 5-325 mg tablet 1 tab PO Q6H 7 Days Qty: 28 0RF Referrals / Follow Up: Jak Cooper DO [Med Staff - Active Staff] - See Referral Note (call to schedule follow up appointment ) Care Physician,No Primary [Primary Care Provider] - Disposition Disposition (needs filled in before D/C Order can be placed): Inpatient Rehab Unit/Facility
--- NOTE | 2024-01-09 11:32 | DS.PCM_ITS ---
Providers Date of Admission: 01/08/24 Date of Discharge: 01/09/24 Primary Care Physician: No Primary Care Phys Reason For Visit: BACK PAIN, DEBILITY Diagnosis Discharge Diagnosis (1) Lumbar stenosis: Status: Acute Code(s): M48.061 - Spinal stenosis, lumbar region without neurogenic claudication Plan 1. Acute debility secondary to recent L5-S1 fusion-patient will be placed into observation status on [facility], she will be seen by PT and OT, IV and p.o. pain medicines were ordered, discharge planning will to see if there is a bed available in the rehab unit tomorrow for the patient to be transferred to for inpatient rehab services. Patient understands that it may be necessary for her to pay for a short stay in a senior living although she cannot afford this. #2 essential hypertension-patient is on lisinopril, and will be adjusted as necessary #3 hypothyroidism-patient is on Synthroid #4 morbid obesity-complicates care, management, recovery, and prognosis Total clinical time spent by myself addressing the patient's medical issues, reviewing all of her data, and collaborating with patient's care team: 55 minutes Medications at Discharge Home Medications hydrochlorothiazide 25 mg tablet 25 mg PO DAILY BP 11/24/23 levothyroxine 200 mcg capsule 200 mcg PO DAILY Thyroid 11/24/23 lisinopril 20 mg tablet 20 mg PO QHS BP 11/24/23 trazodone 100 mg tablet 200 mg PO QHS sleep 11/24/23 acetaminophen 500 mg tablet 1,000 mg (2 x 500 mg) PO Q8 pain 1-10 #0 tabs 01/09/24 heparin (porcine) 5,000 unit/mL injection solution 5,000 unit subcut Q12 blood thinner #0 mL 01/09/24 hydrocodone-acetaminophen 5-325mg 5mg-325mg 1 - 2 tab PO Q6H PRN PRN Pain Score 1-10 #0 tabs 01/09/24 polyethylene glycol 3350 17 gram/dose oral powder (Miralax) 17 g PO DAILY stool softner #119 grams 01/09/24 Hospital Course Operations None Procedures None Summary of Care Provided Minutes Spent on Discharge: 31 Hospital Course: This 73-year-old white female was seen in the emergency room at [facility] with complaints of debility and back pain at home. Patient had undergone an L5-S1 fusion a few days prior and was released to go home, at the time she was released she did not require any home health or other assistance. Patient was to go home with a family member who would help take care of her. Patient found that she could not perform her ADLs and the family member (her son) was not able to help her and so she was brought to the ER at the advice of her back surgeon. Patient's labs are remarkable for an elevated white blood cell count 14, patient's hemoglobin was 9, and urinalysis was unremarkable. Patient was placed in observation status on [facility] 3, she was seen by PT and OT. On 01/09/2024, patient was seen and examined: On examination she appeared in good health and spirits, she does not appear to be in any distress. Vital signs as documented. Skin warm and dry and without overt rashes. Neck without JVD, thyroid appears normal, trachea is midline, neck is supple. Lungs clear, normal air movement was noted. Heart exam notable for regular rhythm, normal sounds and absence of murmurs, rubs or gallops. Abdomen unremarkable and without evidence of organomegaly, masses, or abdominal aortic enlargement, bowel sounds are present in all 4 quadrants, no abdominal tenderness was noted. Extremities nonedematous, no cyanosis was noted, no clubbing was noted. Neuro: Cranial nerves II through XII are grossly intact, no focal motor deficits were noted, sensation to light touch and pinprick is intact, motor exam 5/5 throughout. Psych: Patient is alert and oriented x3, she does not appear anxious or depressed, she does not appear agitated. Patient was excepted into the rehab unit at [facility] for inpatient rehab services on 01/09/2024, she appeared medically stable at that point for transfer to the rehab unit at [facility]. Weight / BMI Weight Weight: 102.058 kg Body Mass Index (BMI) 41.1 ABG / Lab / Microbiology Data 01/08/24 13:17 01/08/24 13:17 Laboratory: Laboratory Results - last 24 hr 01/08/24 13:17: WBC 14.0 H, RBC 2.98 L, Hgb 9.0 L, Hct 28.0 L, MCV 94.0, MCH 30.2, MCHC 32.1, RDW Std Deviation 46.1 H, RDW Coeff of Radha 13.4, Plt Count 272, MPV 8.4, Immature Gran % (Auto) 0.600, Neut % (Auto) 82.1 H, Lymph % (Auto) 9.5 L, [place] % (Auto) 7.2, Eos % (Auto) 0.4, Baso % (Auto) 0.2, Absolute Neuts (auto) 11.5 H, Absolute Lymphs (auto) 1.33, Nucleated RBC % 0, Sodium 137, Potassium 3.6, Chloride 107, Carbon Dioxide 26.0, Anion Gap 4 L, BUN 11, Creatinine 0.81, Est GFR (MDRD) Af Amer 90, Est GFR (MDRD) Non-Af 74, BUN/Creatinine Ratio 13.6, Glucose 120 H, Calcium 8.7 01/08/24 13:31: Urine Color Yellow, Urine Clarity Clear, Urine pH 6.0, Ur Specific Britt 1.015, Urine Protein 15 H, Urine Glucose (UA) Normal, Urine Ketones 15 H, Urine Occult Blood Negative, Urine Nitrite Negative, Urine Bilirubin Negative, Urine Urobilinogen Normal, Ur Leukocyte Esterase Negative, Urine RBC 0 SEEN, Urine WBC 0 SEEN, Ur Squamous Epith Cells 0-5 SEEN, Urine Bacteria 0 SEEN, Urine Mucus 0 SEEN Radiography Diagnostic Testing: Radiology Impression Chest X-Ray 01/08/24 13:33 IMPRESSION: No acute cardiopulmonary process identified. Electronically Signed: Radha Woods MD at 14:03 EDT Reading Location ID and State: [facility] / [facility] Tel , Service support , Meaningful Use Info Meaningful Use Meaningful Use Diagnoses (Choose all that apply): None applicable Ischemic Stroke Statin Dosing Therapy Reference: STATIN DOSE THERAPY REFERENCE: * Patients > 75 years receive moderate or high dose statin therapy. * Patients 75 years or YOUNGER should receive HIGH intensity statin dose unless contraindicated. You will be required to document reason for non-treatment if statin daily dose does not meet guidelines. HIGH DOSE STATIN THERAPY DAILY Atorvastatin > than or = to 40 mg Rosuvastatin > than or = to 20 mg Amlodipine + Atorvastatin > than or = to 2.5/40 mg Ezetimibe + Simvastatin 10/80 mg Simvastatin 80mg Discharge Plan Admission Admit Date/Time: 01/08/24 14:41 Primary Reason for Your Visit: S/P lumbo/sacral fusion with debility Attending Provider: Humberto Grigsby Primary Care Provider: Care Physician,Angeli Primary Discharge Orders/Prescriptions Prescriptions: New hydrocodone-acetaminophen 5-325 mg Tablet 1 - 2 tab PO Q6H PRN PRN (Reason: Pain Score 1-10) Qty: 0 0RF acetaminophen 500 mg Tablet 1,000 mg PO Q8 Qty: 0 0RF heparin (porcine) 5,000 unit/mL Solution 5,000 unit subcut Q12 Qty: 0 0RF polyethylene glycol 3350 [Miralax] 17 gram/dose powder 17 g PO DAILY Qty: 119 0RF Continued levothyroxine 200 mcg capsule 200 mcg PO DAILY hydrochlorothiazide 25 mg tablet 25 mg PO DAILY trazodone 100 mg tablet 200 mg PO QHS lisinopril 20 mg tablet 20 mg PO QHS Discontinued acetaminophen [Acetaminophen Extra Strength] 500 mg tablet 1,000 mg PO Q6H PRN (Reason: pain) hydrocodone-acetaminophen 5-325 mg tablet 1 tab PO Q6H 7 Days Qty: 28 0RF Referrals / Follow Up: Jak Cooper DO [Med Staff - Active Staff] - See Referral Note (call to schedule follow up appointment ) Care Physician,Angeli Primary [Primary Care Provider] - Disposition Disposition (needs filled in before D/C Order can be placed): Inpatient Rehab Unit/Facility Charges/Coding Visit Charges Inpatient E&M: 95942 Disch Hosp >30min
--- NOTE | 2024-01-09 12:05 | PHA.DC.MR.R ---
Pharmacy [place] Med Reconciliation Pharmacy Service has performed discharge medication reconciliation for this patient. The patient's discharge medication list was reviewed for discrepancies and discrepancies were resolved. Medications at Discharge Home Medications hydrochlorothiazide 25 mg tablet 25 mg PO DAILY 11/24/23 levothyroxine 200 mcg capsule 200 mcg PO DAILY 11/24/23 lisinopril 20 mg tablet 20 mg PO QHS 11/24/23 trazodone 100 mg tablet 200 mg PO QHS 11/24/23 acetaminophen 500 mg tablet 1,000 mg (2 x 500 mg) PO Q8 #0 tabs 01/09/24 heparin (porcine) 5,000 unit/mL injection solution 5,000 unit subcut Q12 #0 mL 01/09/24 hydrocodone-acetaminophen 5-325mg 5mg-325mg 1 - 2 tab PO Q6H PRN PRN Pain Score 1-10 #0 tabs 01/09/24 polyethylene glycol 3350 17 gram/dose oral powder (Miralax) 17 g PO DAILY #119 grams 01/09/24
--- NOTE | 2024-01-09 12:39 | CASEMGMT ---
Social Work- SW received d/c paperwork. Pt bedside nurse advised. Holly/JENNIFER advised. PT and pt son advised of d/c. INESSA Cat
[2024-01-09 13:56] VITALS: BP 110/62; PULSE 78; RESP 18; TEMP 36.6; O2SAT 98
--- NOTE | 2024-01-09 14:00 | NURSING ---
report given to ajay perez in RU pt to RU bed
== END 2024-01-09 14:12 ==
LOC: ED 13:53 → MS3 14:49
PROVIDERS: Nurse Practitioner; Admitting Provider Internal Medicine; Emergency Provider Emergency Medicine; Visit Provider Internal Medicine
DX: M48.061 Spinal stenosis, lumbar region without neurogenic claudication (principal); E66.01 Morbid (severe) obesity due to excess calories; Z68.41 Body mass index [BMI] 40.0-44.9, adult; R53.81 Other malaise; G89.29 Other chronic pain; Z87.891 Personal history of nicotine dependence; I10 Essential (primary) hypertension; E03.9 Hypothyroidism, unspecified; Z79.899 Other long term (current) drug therapy; Z79.890 Hormone replacement therapy; R29.6 Repeated falls; Z98.1 Arthrodesis status
CPT/HCPCS: 96372 ×2; 99284; 71045; 80048; 81001; 85025; 97162; 97166; 97802; 99221; A4216; G0378

== ENCOUNTER 2024-01-09 14:19 | Inpatient (IN) | payer MEDICARE, OTHER, SELFPAY ==
[2024-01-09 14:27] VITALS: BP 108/67; PULSE 89; RESP 18; TEMP 36.4; O2SAT 98; BMI 41.7
[2024-01-09 17:44] VITALS: BP 118/59; PULSE 67; RESP 16; TEMP 36.8; O2SAT 96
[2024-01-09 20:50] VITALS: PULSE 67; RESP 16; O2SAT 96
[2024-01-09] MEDS: Senna/Docusate Sodium 1 Tablet 2 TABLET PO (20:56)
[2024-01-09] MEDS: Lisinopril 20 MG Tablet PO (20:57)
[2024-01-09] MEDS: traZODone 100 MG Tablet 200 MG PO (20:57)
[2024-01-09] MEDS: Acetaminophen 500 MG Tablet 1000 MG PO (20:57)
[2024-01-09] MEDS: Heparin Injection (Vial) 5,000 UNIT/ML VIAL 5000 UNIT SC (21:06)
--- NOTE | 2024-01-10 04:59 | HP.PCM_ITS ---
HPI - General General Date of Admission: 01/09/24 Date of Service: 01/09/24 Chief Complaint: Here for 3 hours daily rehabilitation. HPI Narrative MERARY CAT, is a 73 Female who presents with followin01/05/2024 Dr. Cooper performed lumbosacral surgery. 01/06/2024 Patient discharged home. 01/08/2024 [facility] ED with complaint. Unable to care for self, fallen 3 times. Difficulty making it to bathroom, son lives with her. Urinating more than usual. Needs rehab. 01/08/2024 Admit [facility]. PT/OT for debility. IV, PO pain medications for pain control. Plan discuarge to . 01/09/2024 Admit to for 3 hours daily rehabilitation. [facility] Medical History (Updated 01/10/24 @ 05:[address] Josh Sanchez MD) Hypothyroidism Post-menopausal Anxiety Thyroid disease Ambulates with cane Arthritis Easy bruising Injury of back Back pain Fall Loss of consciousness Hoarseness Former smoker History of pain when walking Hypertension Home Medications ?Medication ?Instructions ?Recorded ?Last Taken ?Type hydrochlorothiazide 25 mg tablet 25 mg PO DAILY BP 11/24/23 01/09/24 History levothyroxine 200 mcg capsule 200 mcg PO DAILY Thyroid 11/24/23 01/09/24 History lisinopril 20 mg tablet 20 mg PO QHS BP 11/24/23 01/08/24 History trazodone 100 mg tablet 200 mg PO QHS sleep 11/24/23 01/08/24 History acetaminophen 500 mg tablet 1,000 mg (2 x 500 mg) PO Q8 pain 01/09/24 01/09/24 Rx 1-10 #0 tabs heparin (porcine) 5,000 unit/mL 5,000 unit subcut Q12 blood 01/09/24 01/09/24 Rx injection solution thinner #0 mL hydrocodone-acetaminophen 5-325mg 1 - 2 tab PO Q6H PRN PRN Pain 01/09/24 Unknown Rx 5mg-325mg Score 1-10 #0 tabs polyethylene glycol 3350 17 17 g PO DAILY stool softner #119 01/09/24 Unknown Rx gram/dose oral powder (Miralax) grams Allergy/AdvReac Type Severity Reaction Status Date / Time Penicillins Allergy Intermediate Hives Verified 01/08/24 12:41 Surgical History (Updated 01/10/24 @ 05:[address] Josh Sanchez MD) History of lumbosacral spine surgery Hx of tubal ligation Hx of total knee replacement Social History (Updated 01/10/24 @ 05:[address] Josh Sanchez MD) household members: children and other details: Son lives with her. Smoking Status: Former smoker alcohol intake: never substance use type: does not use ROS Constitutional Constitutional: Reports fatigue and weakness; Denies chills, fever(s) or weight gain ENT HEENT: Denies headache(s), nasal congestion or nasal discharge Cardiovascular Cardiovascular: Denies chest pain or palpitations Respiratory/Chest Respiratory/Chest: Denies cough, excessive phlegm production or shortness of breath with exertion Gastrointestinal Gastrointestinal: Denies abdominal pain, nausea or vomiting Genitourinary Genitourinary: Denies dysuria Musculoskeletal Musculoskeletal: Denies joint pain or joint swelling Integumentary Integumentary: Denies rash or wounds Neurologic Neurologic: Denies focal weakness, numbness or tingling Psychiatric Psychiatric: Denies anxiety, auditory hallucinations, depression, homicidal ideation or suicidal ideation Vital Signs Vital Signs Vital Signs: 01/09/24 14:27 01/09/24 17:44 01/09/24 20:50 Temperature 97.6 F L 98.2 F Temperature Source Temporal Temporal Pulse Rate 89 67 67 Respiratory Rate 18 16 16 Respiratory Effort Normal Non-Labored Respiratory Depth Normal Respiratory Pattern Normal Blood Pressure 108/67 118/59 L Blood Pressure Mean 80 78 Blood Pressure Source Monitor Monitor Blood Pressure Position Semi-Fowlers Semi-Fowlers Blood Pressure Location Right Arm Right Arm Pulse Ox 98 96 96 Oxygen Delivery Method Room Air Room Air Room Air Weight Weight: 102.9 kg Body Mass Index (BMI) 41.7 Indicators for Scoring Admitted with or Primary Diagnosis of CVA/Stroke: No Hx of CVA/Stroke: No Modified Ash Score MRS Score at time of Evaluation: 3-Moderate disability Physical Exam Const alert General Appearance: cooperative HEENT normocephalic Eyes PERRL and EOMs intact bilaterally Neck supple, no JVD and no carotid bruits Resp normal respiratory effort, normal air movement and clear to auscultation bilaterally Cardio regular rate and regular rhythm GI normal to inspection, nondistended, normoactive bowel sounds, non-tender and non-distended Extremity normal capillary refill General Extremity: Negative for edema Skin no rashes or lesions noted General Skin Exam: no breakdown Psych affect normal Appearance: appropriate Assessment & Plan Assessment/Plan (1) Debility: (2) Lumbar stenosis: (3) History of lumbosacral spine surgery: (4) Essential (primary) hypertension: (5) Hypothyroidism: (6) Depression: (7) Anxiety: (8) Morbid obesity: PLAN: Plan 73 year old female with below past medical history significant for lumbar spinal stenosis, underwent lumbosacral spine surgery 01/05/[address] Cooper, unable to care for self at home, admitted to with debility, here for 3 hours daily rehabilitation, strengthening, prior to discharge home with son. * Debility - PT/OT. * Pain - Tylenol 1000mg q8, [place] 1-2 tablet q6 prn. * Bowel - Miralax 17gm daily, senna/colace 2 tablets bid, Dulcolax 10mg pr daily prn, MOM 30ml daily prn. * DVT prophylaxis - Lovenox 40mg sc daily. * Nutrition - Ensure Plus 120ml po tidcm. * Hypertension - Lisinopril 20mg daily, HCTZ 25mg daily. * Hypothyroidism - Levothyroxine 200mcg daily. * Insomnia - Trazodone 200mg qhs.
[2024-01-10 05:26] LABS: Hematocrit 30.5 % (37-47); Hemoglobin 9.8 g/dL (12.0-15.0); Mean Corp Hgb Conc 32.1 g/dL (32-36); Mean Corpuscular Hgb 29.8 pg (27.0-32.0); Mean Corpuscular Volume 92.7 fL (81-99); Mean Platelet Vol. 8.5 fl (6.2-12.0); Platelet Count 367 K/mm3 (150-450); RBC Distribution Width CV 13.2 % (11.6-14.6); RBC Distribution Width SD 44.9 fl (35.1-43.9); Red Blood Count 3.29 M/mm3 (4.2-5.4); White Blood Count 11.4 K/mm3 (4.4-11.0)
[2024-01-10] MEDS: Acetaminophen 500 MG Tablet 1000 MG PO ×3 (05:37→20:41)
[2024-01-10] MEDS: Levothyroxine 100 MCG Tablet 200 MCG PO (05:37)
[2024-01-10] MEDS: Enoxaparin 40 MG/0.4 ML Syringe SC (05:38)
[2024-01-10 05:47] VITALS: BP 117/61; PULSE 66; RESP 18; TEMP 36.6; O2SAT 97
[2024-01-10 06:40] LABS: ALB/GLOB Ratio 0.7 RATIO (0.9-2.4); AST(SGOT) 21 U/L (15-37); Alanine Aminotransfer ALT/SGPT 24 U/L (13-56); Albumin, Serum 2.7 g/dL (3.2-5.0); Alkaline Phosphatase 82 U/L (45-117); Anion Gap 7 (5-15); BUN 11 mg/dL (7-18); BUN/Creat Ratio 13.3 RATIO (10-20); Chloride 106 mmol/L (98-107); Creatinine, Serum 0.83 mg/dL (0.55-1.02); EST Glomerular Filtration Rate 72 mL/min (>60); Est Glom Filt Rate - Afr Amer 87 mL/min (>60); Estimated Creatinine Clearance 68.54 ml/min; Globulin 4.1 g/dL (2.2-4.2); Glucose 110 mg/dL (74-106); Magnesium 2.3 mg/dL (1.6-2.6); Phosphorus 3.4 mg/dL (2.5-4.9); Potassium 3.6 mmol/L (3.5-5.1); Protein, Total 6.8 g/dL (6.4-8.2); Sodium Level 141 mmol/L (136-145)
[2024-01-10] MEDS: Ensure Plus High Protein 120 ML LIQUID PO ×3 (08:13→17:21)
[2024-01-10] MEDS: hydroCHLOROthiazide 25 MG Tablet PO (09:55)
[2024-01-10] MEDS: Senna/Docusate Sodium 1 Tablet 2 TABLET PO ×2 (09:55→20:41)
[2024-01-10] MEDS: Polyethylene Glycol 3350 17 GM PACKET PO (09:55)
[2024-01-10 18:06] VITALS: BP 113/60; PULSE 74; RESP 16; TEMP 36.7; O2SAT 99
[2024-01-10 20:20] VITALS: PULSE 74; RESP 16; O2SAT 99
--- NOTE | 2024-01-10 20:35 | PCM.RU.PYE ---
Admission Information Primary Diagnosis:: s/p lumbosacral spine surgery. Status Changes from Prescreening?: No changes Identified Actual Problem List:: Pain, ALteration in Cmfrt, Alteration in Sleep, Mobility Impaired, Self Care Deficit, Ineffective Communication, Know.Dfct/Disease Process and Alteration-Leisure Activ. Potential Problem List:: DVT, Bleeding, Infection, UTI, Aspiration, Falls, Skin Integrity and Depression Risk of Complications DVT: LMWH and JOHN Hose Bleeding: Monitor Lab Values, Nursing to Teach Precautions for anti-coagulation therapy. and Wound, if applicable, to be assessed every shift. Infection: Clinical Staff to Monitor for S/S of infection: and S/S of infection include fever, redness, warmth, etc. Urinary Tract Infection: Monitor for frequency, burning, discomfort, or incontinence. and Nursing will obtain urine sample for urinalysis and C&S when ordered. Aspiration: Clinical staff will monitor for coughing, drooling, congestion., Speech will evaluate swallowing and dsyphasia. and Nursing will monitor patient swallowing during meals. Falls: Patient will be evaluated for Fall Precautions and Patient will be placed on Fall Precautions as indicated per protocol. Skin Breakdown: Nursing will assess skin daily using assessment tool. and Nursing will place on Skin Breakdown Precautions as indicated. Pain: Clinical staff will assess patient's pain level per protocol., Medications will be given, if needed, and the pain level reassessed. and Other methods: Massage, distraction, decrease stimulus, etc. used PRN. Plan of Care Patient requires physician specializing in physical medicine and rehab oversight to provide close medical supervision of rehab issues including: Pain Management, Sleep Problems, Bowel and Bladder, Medical and co-morbidity Management, DVT prophylaxis, Rehabilitation Leadership and Coordination of treatment team Patient needs Physical Therapy: For a minimum of 1 hour and At least 5 out of 7 days Patient needs Physical Therapy to improve:: Mobility, Strengthening, Transfers, Stretching, ROM, Endurance, Stairs, Gait and Balance Patient needs Occupational Therapy: For a minimum of 1 hour and At least 5 out of 7 days Patient needs Occupational Therapy to improve ADL's incl.: Eating, Grooming, Bathing, Dressing, Toileting, Toilet transfers, Community Reintegration, Higher functioning activities, Household tasks, Adaptive Equipment and Other activities as determined Patient requires speech therapy: For a minimum of 1 hour and At least 5 out of 7 days Patient requires speech therapy for: Cognition, Language Skills and Compensatory Strategies Patient requires 24/7 Rehabilitation Nursing for: Pain Issues, Identifying and preventing risk factors, Monitoring and reporting current medical conditions, Assisting with ambulation, transfer, and all ADL's, Teaching patients about disease process and medications, Family teaching, Providing safe environment, Bowel and Bladder Issues, Skin integrity and Medication Management Patient needs Credit Operations Specialist/ Case Management for: Discharge Planning, Arranging Home Equipment or Services and Family Interventions Patient needs Dietary and Nutrition Services for: Adequate Nutrition, Nutritional Supplements and Nutritional Education Goals Goals Patient will remain: free from falls and or injury at time of discharge. Patient will perform eating at: MOD I level of assist. Patient will perform bed mobility at: MOD I level of assist. Patient will complete transfers from bed to chair at: MOD I level of assist. Patient will ambulate: with MOD I assist, with LRD and - (300 feet.) Patient will complete upper body dressing at: MOD I level of assist. Patient will complete lower body dressing at: MOD I level of assist. Patient will complete toilet transfer at: MOD I level of assist. Patient will complete toileting at: MOD I level of assist. Patient will perform bathing at: MOD I level of assist. Patient will perform Tub/Shower transfer at: - (Sup.) Patient will complete grooming at: MOD I level of assist. Patient will complete home management skills at: MOD I level of assist. Patient will achieve: with standby assist and - (1-2 steps.) Patient will have pain level of: of 3 or less Patient's skin will: remain intact and free from infection. Patient will receive: adequate nutrition. Discharge Planning Pt Prognosis for Sig. Practical Improv. w/in Reasonable Time: Good Estimated Length of stay (days): 21 Anticipated D/C Destination: Home with Home Health Was Preadmission Assessment Accurate?: Yes
[2024-01-10] MEDS: traZODone 100 MG Tablet 200 MG PO (20:41)
[2024-01-10] MEDS: Lisinopril 20 MG Tablet PO (20:44)
--- NOTE | 2024-01-11 02:22 | NURSING ---
Reviewed and agree with Coleman PAGE, documentation and assessment charting.
[2024-01-11] MEDS: Levothyroxine 100 MCG Tablet 200 MCG PO (05:52)
[2024-01-11] MEDS: Enoxaparin 40 MG/0.4 ML Syringe SC (05:52)
[2024-01-11] MEDS: Acetaminophen 500 MG Tablet 1000 MG PO ×3 (05:52→20:42)
[2024-01-11 06:00] VITALS: BP 125/76; PULSE 65; RESP 16; TEMP 36.6
[2024-01-11] MEDS: Senna/Docusate Sodium 1 Tablet 2 TABLET PO (08:27)
[2024-01-11] MEDS: hydroCHLOROthiazide 25 MG Tablet PO (08:27)
[2024-01-11] MEDS: Polyethylene Glycol 3350 17 GM PACKET PO (08:27)
--- NOTE | 2024-01-11 08:27 | PN.REHAB_ITS ---
Subjective Subjective Patient seen, examined. She is eating breakfast well. She feels her pain is controlled, progressing in the therapy. Objective Data Objective Data Vital Signs: Vital Signs Temp Pulse Resp BP Pulse Ox O2 Del Method 98.0 F 74 16 113/60 99 Room Air 01/10/24 18:06 01/10/24 20:20 01/10/24 20:20 01/10/24 18:06 01/10/24 20:20 01/10/24 20:20 Oxygen Delivery Method Room Air Weight: 102.9 kg Body Mass Index (BMI) 41.7 Intake & Output: Intake and Output for Last 24 Hours 01/09/24 01/10/24 01/11/24 23:59 23:59 23:59 Intake Total 300 / 300 1290 / 1290 Output Total 500 / 500 1250 / 1250 450 / 450 Balance -200 / -200 40 / 40 -450 / -450 Lab / Micro Data 01/10/24 05:15 01/10/24 05:15 Indicators for Scoring Admitted with or Primary Diagnosis of CVA/Stroke: No Hx of CVA/Stroke: No Modified [place] Score MRS Score at time of Evaluation: 3-Moderate disability Physical Exam Const alert General Appearance: cooperative HEENT normocephalic Eyes PERRL and EOMs intact bilaterally Neck supple, no JVD and no carotid bruits Resp normal respiratory effort, normal air movement and clear to auscultation bilaterally Cardio regular rate and regular rhythm GI normal to inspection, nondistended, normoactive bowel sounds, non-tender and non-distended Extremity normal capillary refill General Extremity: Negative for edema Skin no rashes or lesions noted General Skin Exam: no breakdown Psych affect normal Appearance: appropriate Assessment & Plan Assessment/Plan (1) Debility: (2) Lumbar stenosis: (3) History of lumbosacral spine surgery: (4) Essential (primary) hypertension: (5) Hypothyroidism: (6) Depression: (7) Anxiety: (8) Morbid obesity: PLAN: Plan 73 year old female with below past medical history significant for lumbar spinal stenosis, underwent lumbosacral spine surgery 01/05/[address] Cooper, unable to care for self at home, admitted to with debility, here for 3 hours daily rehabilitation, strengthening, prior to discharge home with son. * Debility - PT/OT. * Pain - Tylenol 1000mg q8, [place] 1-2 tablet q6 prn. * Bowel - Miralax 17gm daily, senna/colace 2 tablets bid, Dulcolax 10mg pr daily prn, MOM 30ml daily prn. * DVT prophylaxis - Lovenox 40mg sc daily. * Nutrition - Ensure Plus 120ml po tidcm. * Hypertension - Lisinopril 20mg daily, HCTZ 25mg daily. * Hypothyroidism - Levothyroxine 200mcg daily. * Insomnia - Trazodone 200mg qhs.
[2024-01-11] MEDS: Ensure Plus High Protein 120 ML LIQUID PO ×2 (08:28→17:03)
[2024-01-11 09:23] VITALS: O2SAT 93
[2024-01-11] MEDS: 0.9% Saline Lock 10 ML Syringe IV (17:24)
[2024-01-11 18:00] VITALS: BP 120/69; PULSE 79; RESP 18; TEMP 37; O2SAT 97
[2024-01-11] MEDS: traZODone 100 MG Tablet 200 MG PO (20:42)
[2024-01-11] MEDS: Lisinopril 20 MG Tablet PO (20:42)
[2024-01-11 22:00] VITALS: PULSE 79; RESP 18; O2SAT 97
[2024-01-12 05:34] VITALS: BP 120/56; PULSE 63; RESP 19; TEMP 36.3; O2SAT 97
[2024-01-12] MEDS: Enoxaparin 40 MG/0.4 ML Syringe SC (05:35)
[2024-01-12] MEDS: Acetaminophen 500 MG Tablet 1000 MG PO ×3 (05:35→21:29)
[2024-01-12] MEDS: Levothyroxine 100 MCG Tablet 200 MCG PO (05:35)
[2024-01-12 07:45] VITALS: O2SAT 95
[2024-01-12] MEDS: Ensure Plus High Protein 120 ML LIQUID PO ×2 (07:47→16:32)
[2024-01-12] MEDS: Polyethylene Glycol 3350 17 GM PACKET PO (07:47)
[2024-01-12] MEDS: hydroCHLOROthiazide 25 MG Tablet PO (07:48)
--- NOTE | 2024-01-12 08:57 | CASEMGMT ---
Addendum entered by Ernestina Will 01/12/24 12:17: SW updated pt that Medicare approval 14 days, with DC 01/21. Original Note: Social Work IDT met with patient for Team meeting. Pt denied for son to be called. Discussed patient's progress in PT/OT/SN. ST to eval for cognition. SW educated to Medicare benefit and will update pt once days are received. Pt's goal is to return home alone. Pt is new to [facility] and on admission, SW provided pt with Healthcare Provider Directory for pt to select choose new providers. Pt requested/and Dr. Sanchez offered/accepted to be her new PCP as she recently moved to [facility]. Pt requesting referral to Dr. Jean for management. Referral will be made. SIDRA will continue to follow for DC planning assistance. TONI DamonW
[2024-01-12] MEDS: 0.9% Saline Lock 10 ML Syringe IV ×2 (10:25→21:31)
--- NOTE | 2024-01-12 11:24 | PN.REHAB_ITS ---
Subjective Subjective Patient seen, examined on Team Rounds. PT noted nystagmus, impulsivity. Patient has no complaints, progressing with therapy. Objective Data Objective Data Vital Signs: Vital Signs Temp Pulse Resp BP Pulse Ox O2 Del Method 97.4 F L 63 19 H 120/56 L 95 Room Air 01/12/24 05:34 01/12/24 05:34 01/12/24 05:34 01/12/24 05:34 01/12/24 07:45 01/12/24 07:45 Oxygen Delivery Method Room Air Weight: 102.9 kg Body Mass Index (BMI) 41.7 Intake & Output: Intake and Output for Last 24 Hours 01/10/24 01/11/24 01/12/24 23:59 23:59 23:59 Intake Total 1290 / 1290 660 / 660 360 / 360 Output Total 1250 / 1250 0 / 2050 450 / 450 Balance 40 / 40 -1390 / -1390 -90 / -90 Lab / Micro Data 01/10/24 05:15 01/10/24 05:15 Indicators for Scoring Admitted with or Primary Diagnosis of CVA/Stroke: No Hx of CVA/Stroke: No Modified Ash Score MRS Score at time of Evaluation: 3-Moderate disability Physical Exam Const alert General Appearance: cooperative HEENT normocephalic Eyes PERRL and EOMs intact bilaterally Neck supple, no JVD and no carotid bruits Resp normal respiratory effort, normal air movement and clear to auscultation bilaterally Cardio regular rate and regular rhythm GI normal to inspection, nondistended, normoactive bowel sounds, non-tender and non-distended Extremity normal capillary refill General Extremity: Negative for edema Skin no rashes or lesions noted General Skin Exam: no breakdown Psych affect normal Appearance: appropriate Assessment & Plan Assessment/Plan (1) Debility: (2) Lumbar stenosis: (3) History of lumbosacral spine surgery: (4) Essential (primary) hypertension: (5) Hypothyroidism: (6) Depression: (7) Anxiety: (8) Morbid obesity: PLAN: Plan 73 year old female with below past medical history significant for lumbar spinal stenosis, underwent lumbosacral spine surgery 01/05/[address] Cooper, unable to care for self at home, admitted to with debility, here for 3 hours daily rehabilitation, strengthening, prior to discharge home with son. * Debility - PT/OT. * Pain - Tylenol 1000mg q8, Hull 1-2 tablet q6 prn. * Bowel - Miralax 17gm daily, senna/colace 2 tablets bid, Dulcolax 10mg pr daily prn, MOM 30ml daily prn. * DVT prophylaxis - Lovenox 40mg sc daily. * Nutrition - Ensure Plus 120ml po tidcm. * Hypertension - Lisinopril 20mg daily, HCTZ 25mg daily. * Hypothyroidism - Levothyroxine 200mcg daily. * Insomnia - Trazodone 200mg qhs. * Nystagmus/impulsivity - consider neurologic evaluation as outpatient.
[2024-01-12] MEDS: HYDROcodone Bitartrate/Apap 5/325 Tablet PO (12:45)
[2024-01-12 17:19] VITALS: BP 107/53; PULSE 81; RESP 16; TEMP 36.1; O2SAT 98
[2024-01-12] MEDS: Lisinopril 20 MG Tablet PO (21:29)
[2024-01-12] MEDS: traZODone 100 MG Tablet 200 MG PO (21:29)
[2024-01-13] MEDS: Levothyroxine 100 MCG Tablet 200 MCG PO (05:33)
[2024-01-13] MEDS: Acetaminophen 500 MG Tablet 1000 MG PO ×3 (05:33→20:31)
[2024-01-13] MEDS: Enoxaparin 40 MG/0.4 ML Syringe SC (05:33)
[2024-01-13 05:37] VITALS: BP 125/58; PULSE 70; RESP 17; TEMP 36.3; O2SAT 96
[2024-01-13] MEDS: Polyethylene Glycol 3350 17 GM PACKET PO (07:49)
[2024-01-13] MEDS: hydroCHLOROthiazide 25 MG Tablet PO (07:49)
[2024-01-13] MEDS: Ensure Plus High Protein 120 ML LIQUID PO ×2 (07:50→16:52)
[2024-01-13 17:08] VITALS: BP 106/60; PULSE 74; RESP 17; TEMP 37; O2SAT 97
[2024-01-13] MEDS: Lisinopril 20 MG Tablet PO (20:31)
[2024-01-13] MEDS: traZODone 100 MG Tablet 200 MG PO (20:32)
[2024-01-14 04:11] VITALS: BP 104/63; PULSE 78; RESP 18; TEMP 36.5; O2SAT 98
[2024-01-14] MEDS: Enoxaparin 40 MG/0.4 ML Syringe SC (05:01)
[2024-01-14] MEDS: Acetaminophen 500 MG Tablet 1000 MG PO ×3 (05:01→21:40)
[2024-01-14] MEDS: Levothyroxine 100 MCG Tablet 200 MCG PO (05:01)
[2024-01-14] MEDS: Senna/Docusate Sodium 1 Tablet 2 TABLET PO (08:53)
[2024-01-14] MEDS: Polyethylene Glycol 3350 17 GM PACKET PO (08:54)
[2024-01-14] MEDS: hydroCHLOROthiazide 25 MG Tablet PO (08:54)
[2024-01-14] MEDS: Ensure Plus High Protein 120 ML LIQUID PO ×2 (08:54→12:41)
[2024-01-14 18:00] VITALS: BP 119/70; PULSE 84; RESP 15; TEMP 36.7; O2SAT 97
[2024-01-14] MEDS: Lisinopril 20 MG Tablet PO (21:40)
[2024-01-14] MEDS: traZODone 100 MG Tablet 200 MG PO (21:40)
[2024-01-15] MEDS: HYDROcodone Bitartrate/Apap 5/325 Tablet PO (01:38)
--- NOTE | 2024-01-15 01:51 | NURSING ---
Reviewed and agree with Maile PAGE, documentation and assessment charting.
[2024-01-15] MEDS: Acetaminophen 500 MG Tablet 1000 MG PO ×3 (05:10→21:55)
[2024-01-15] MEDS: Enoxaparin 40 MG/0.4 ML Syringe SC (05:10)
[2024-01-15] MEDS: Levothyroxine 100 MCG Tablet 200 MCG PO (05:10)
[2024-01-15 06:17] VITALS: BP 106/58; PULSE 69; RESP 16; TEMP 36.3; O2SAT 96
[2024-01-15] MEDS: Senna/Docusate Sodium 1 Tablet 2 TABLET PO ×2 (09:07→21:55)
[2024-01-15] MEDS: hydroCHLOROthiazide 25 MG Tablet PO (09:07)
[2024-01-15 09:13] VITALS: O2SAT 97
[2024-01-15] MEDS: Ensure Plus High Protein 120 ML LIQUID PO (16:44)
[2024-01-15 18:00] VITALS: BP 109/64; PULSE 95; RESP 16; TEMP 37.4; O2SAT 96
[2024-01-15] MEDS: Lisinopril 20 MG Tablet PO (21:55)
[2024-01-15] MEDS: traZODone 100 MG Tablet 200 MG PO (21:55)
[2024-01-16] MEDS: Acetaminophen 500 MG Tablet 1000 MG PO ×3 (04:56→20:50)
[2024-01-16] MEDS: Levothyroxine 100 MCG Tablet 200 MCG PO (04:56)
[2024-01-16] MEDS: Enoxaparin 40 MG/0.4 ML Syringe SC (04:56)
[2024-01-16 05:24] VITALS: BP 109/54; PULSE 82; RESP 16; TEMP 36.9; O2SAT 100
[2024-01-16] MEDS: Senna/Docusate Sodium 1 Tablet 2 TABLET PO (08:17)
[2024-01-16 08:23] VITALS: BP 99/55
--- NOTE | 2024-01-16 11:35 | PCM.PROGNOTE ---
Subjective Subjective Afebrile VSS -blood pressure since Tuesday a.m. has ranged from 99/55 to 119/70. She is taking lisinopril and hydrochlorothiazide for hypertension. The heart rate is ranged from 69-95. Maintaining appropriate oxygen saturation on RA Oral intake - FOOD good FLUIDS good Discussed with nursing - Having urinary frequency per night nursing. going only 75-100 cc's at a time. Reviewed the THERAPY notes Medication list reviewed. She is currently taking Tylenol 1000 mg every 8 hours scheduled and hydrocodone 1 to 2 tablets every 6 hours as needed for pain. Not on a muscle relaxer or Gabapentin. She has not taken any hydrocodone since 01/15/2024 at 1:30 AM. She is status post L5-S1 posterior lumbar interbody fusion with bilateral laminectomies, foraminotomies, facetectomies and decompression of bilateral nerve roots on 01/05/[address] Cooper. She was discharged home on 01/06/2024 but was unable to care for herself at home and had 3 falls. She represented to the emergency department on 01/08/2024 and was admitted to acute rehab on 01/09/2024. She tells me that she normally gets up a few times a night to urinate. She denies urinary frequency during the day and also denies urgency. She has no dysuria. Her ankles are swollen at the end of the day and they go down overnight. She has been getting up less since she has been using compression stockings or TARIK wraps on the legs. She takes HCTZ chronically. She tells me that at most her pain is a 4 and she is sleeping well at night. She has some numbness and pain in the R buttock. Admits to having gained weight over the past year due to inactivity related to back and R leg pain. Denies dizziness, chest pain, cough, shortness of breath, nausea/vomiting/abdominal pain, calf pain. Hemoglobin dropped to 9.0 on 01/08/2024 from 12.2 on 12/06/2023. Review of the EMR shows she had a TSH in November that was less than 0.01. No T4 was done. She recently moved to [place] from [place] to be closer to her son. She was impulsive at arrival on rehab and apparently St is working with her now for some cognitive issues. Prior to the surgery she was living by herself and independent. She drives. She has downsized from a house to an appt. She has been a for 22 years. She tells me that prior to the recent surgery she had R buttock pain and she still has some R buttock pain but, it is much better than it was. Denies pain radiating into the R leg. States she has some numbness in the buttock. She denies having any problem with memory. She was managing her own finances. She told one of the nurses he has been confused lately. She tells me that she snores. She falls asleep if reading a book but, never when in the car. Does not fall asleep watching TV. Denies RLS. She denies vertigo, lightheadedness, chest pain, palpitations, shortness of breath, cough, nausea/vomiting/abdominal pain, dysuria and calf tenderness. Objective Data Objective Data Vital Signs: Vital Signs Temp Pulse Resp BP Pulse Ox O2 Del Method 98.4 F 82 16 99/55 L 100 Room Air 01/16/24 05:24 01/16/24 05:24 01/16/24 05:24 01/16/24 08:23 01/16/24 05:24 01/16/24 05:24 Oxygen Delivery Method Room Air Weight: 226 lb 13.69 oz Body Mass Index (BMI) 41.7 Intake & Output: Intake and Output for Last 24 Hours 01/14/24 01/15/24 01/16/24 23:59 23:59 23:59 Intake Total 1150 / 1150 640 / 640 690 / 690 Output Total 1625 / 1625 1150 / 1150 325 / 325 Balance -475 / -475 -510 / -510 365 / 365 Lab / Micro Data 01/10/24 05:15 01/10/24 05:15 Physical Exam Const alert, oriented x3 and no apparent distress Constitutional Narrative: She was sitting in the recliner at the bedside. She is somewhat restless and moving the chair from the reclining position into upright often. She almost seems euphoric and she has a wide-eyed, startled look on her face. Having trouble paying close attention to what I am asking her. General Appearance: cooperative HEENT normocephalic, head/scalp atraumatic and moist oral mucous membranes HEENT Narrative: ? a mild degree of proptosis. Eyes PERRL and EOMs intact bilaterally Eyes Narrative: She has a few beats of nystagmus with extreme R gaze. Neck supple and no carotid bruits Resp normal respiratory effort, normal air movement and clear to auscultation bilaterally Resp Narrative: No conversational dyspnea. Effort and Inspection: Negative for tachypneic Cardio regular rate, regular rhythm, S1 normal heart sound, S2 normal heart sound, no rub and no gallops Cardio Narrative: She has a soft 2/6 systolic ejection murmur heard best at the second right intercostal space. No ectopy. GI normal to inspection, nondistended, normoactive bowel sounds, soft to palpation, non-tender and non-distended Extremity no calf tenderness General Extremity: Negative for edema Skin Rashes: rashes noted Wound Narrative: The incision is intact with no dehiscence. There is no justyn-incisional erythema and no discharge from the incision. Neuro CN's II-XII intact bilaterally and no focal motor deficits Psych cooperative Psych Narrative: Makes good eye contact with me. she is pleasant. Having some trouble focusing on topics. Somewhat restless but, does not seem anxious. Assessment & Plan Assessment/Plan (1) Debility: (2) Lumbar stenosis: QUALIFIERS: Neurogenic claudication status: unspecified Qualified Code(s): M48.061 - Spinal stenosis, lumbar region without neurogenic claudication (3) History of lumbosacral spine surgery: (4) Acute blood loss anemia: (5) Hypothyroidism: QUALIFIERS: Hypothyroidism type: unspecified Qualified Code(s): E03.9 - Hypothyroidism, unspecified (6) Cognitive impairment: (7) Pain in right buttock: (8) Essential (primary) hypertension: PLAN: Currently on hydrochlorothiazide and lisinopril. (9) Increased urinary frequency: (10) Insomnia: QUALIFIERS: Insomnia type: unspecified Qualified Code(s): G47.00 - Insomnia, unspecified (11) Low TSH level: PLAN: < 0.01 in November of 2023 (12) Elevated fasting glucose: PLAN: Plan 1. Continue therapy 2. Obtain records from the PCP....med list and recent thyroid studies. 3. TSH, T4, BMP, B12, HH, HGBA1C now 4. Place levothyroxine on hold until I can get the results of the thyroid studies. 5. Blood pressure is on the low end today. Will hold hydrochlorothiazide. 6. Decrease Lisinopril to 15 mg daily I spoke with Jenelle Mathews's son. He tells me that she has been having some memory issues and falls recently and that's why she was moved to [place] to be closer to him. He attributed it to the pain she was having and he thinks she is better since the surgery. He tells me that she was not taking narcotics prior to the surgery. Charges/Coding Visit Charges Inpatient E&M: 64094 Subs Hosp L2
[2024-01-16 18:00] VITALS: BP 122/71; PULSE 82; RESP 16; TEMP 36.9; O2SAT 96
[2024-01-16 18:16] LABS: Hemoglobin A1c 5.7 % (3.8-5.6)
[2024-01-16 18:33] LABS: Anion Gap 7 (5-15); BUN 20 mg/dL (7-18); BUN/Creat Ratio 20.9 RATIO (10-20); Calcium,Total 9.1 mg/dL (8.5-10.1); Chloride 103 mmol/L (98-107); Creatinine, Serum 0.96 mg/dL (0.55-1.02); EST Glomerular Filtration Rate 61 mL/min (>60); Est Glom Filt Rate - Afr Amer 74 mL/min (>60); Estimated Creatinine Clearance 60.43 ml/min; Glucose 121 mg/dL (74-106); Potassium 3.8 mmol/L (3.5-5.1); Sodium Level 136 mmol/L (136-145); T4 Free Direct 1.34 ng/dL (0.76-1.46); Thyroid Stim Hormone (TSH) 5.34 uIU/mL (0.358-3.74)
[2024-01-16] MEDS: traZODone 100 MG Tablet 200 MG PO (20:48)
[2024-01-16] MEDS: Lisinopril 10 MG Tablet 15 MG PO (20:49)
[2024-01-16] MEDS: traMADol 50 MG Tablet PO (20:49)
[2024-01-16 21:40] LABS: Vitamin B12 441 pg/mL (211-911)
[2024-01-16 21:45] VITALS: PULSE 87; O2SAT 94
[2024-01-17] MEDS: Acetaminophen 500 MG Tablet 1000 MG PO ×3 (05:36→20:56)
[2024-01-17 05:37] VITALS: BP 109/61; PULSE 79; RESP 18; TEMP 36.6; O2SAT 94
[2024-01-17] MEDS: hydroCHLOROthiazide 25 MG Tablet PO (08:14)
--- NOTE | 2024-01-17 10:08 | PCM.PROGNOTE ---
Subjective Subjective Afebrile VSS -blood pressure this a.m. is 109/61. The dose of lisinopril was decreased yesterday for a blood pressure of 99/55 and she will receive only 15 mg of lisinopril this a.m. Heart rate is within normal limits. Maintaining appropriate oxygen saturation on RA Oral intake - FOOD good FLUIDS poor to fair Discussed with nursing -multiple episodes of diarrhea throughout the day yesterday. Reviewed the THERAPY notes Medication list reviewed. The results of the overnight trending pulse ox were reviewed. There were no desaturation events. All lab drawn yesterday afternoon was personally reviewed. Hemoglobin is stable at 10. Sodium is 136 and the potassium was 3.8. The BUN was 20 and the creatinine is 0.96 which is up from 0.81 on and . I suspect this is secondary to poor oral intake and multiple episodes of diarrhea yesterday. Hemoglobin A1c is mildly increased at 5.7 which is consistent with glucose intolerance. B12 is normal at 441. TSH is 5.34 ( up from < 0.01 in November). T4 is WNL at 1.34. Antithyroid antibodies are pending. She denies pain in the right upper buttock today when sitting in a chair but tells me that when she works with the therapist she has pain in her back and her buttock. She has not been asking for the pain medication. She tells me that prior to her surgery she was taking Aleve 2 tablets twice daily but stopped this prior to surgery at the request of Dr. Cooper. She denies any GI intolerance of Naprosyn. She denies lightheadedness, chest pain, shortness of breath, cough, heartburn, nausea/vomiting/abdominal pain, dysuria and calf tenderness. Objective Data Objective Data Vital Signs: Vital Signs Temp Pulse Resp BP Pulse Ox O2 Del Method O2 Flow Rate 98 F 79 18 109/61 94 Room Air 0 01/17/24 05:37 01/17/24 05:37 01/17/24 05:37 01/17/24 05:37 01/17/24 05:37 01/17/24 05:37 01/16/24 21:45 FiO2 21 01/16/24 21:45 Oxygen Flow Rate (L/min) 0 Oxygen Delivery Method Room Air Weight: 226 lb 13.69 oz Body Mass Index (BMI) 41.7 Intake & Output: Intake and Output for Last 24 Hours 01/15/24 01/16/24 01/17/24 23:59 23:59 23:59 Intake Total 640 / 640 1050 / 1050 640 / 640 Output Total 1150 / 1150 925 / 975 350 / 350 Balance -510 / -510 125 / 75 290 / 290 Lab / Micro Data 01/16/24 17:05 01/16/24 15:40 Labs: Laboratory Results - last 24 hr 01/16/24 15:40: Sodium 136, Potassium 3.8, Chloride 103, Carbon Dioxide 26.0, Anion Gap 7, BUN 20 H, Creatinine 0.96, Estim Creat Clear Calc 60.43, Est GFR (MDRD) Af Amer 74, Est GFR (MDRD) Non-Af 61, BUN/Creatinine Ratio 20.9 H, Glucose 121 H, Hemoglobin A1c 5.7 H, Calcium 9.1, TSH 5.34 H, Free T4 1.34 01/16/24 17:05: Hgb 10.0 L, Hct 31.0 L, Vitamin B12 441 Physical Exam Const alert, oriented x3 and no apparent distress General Appearance: cooperative Resp normal respiratory effort, normal air movement and clear to auscultation bilaterally Resp Narrative: No conversational dyspnea. Effort and Inspection: Negative for tachypneic Cardio regular rate, regular rhythm, S1 normal heart sound, S2 normal heart sound, no rub and no gallops Cardio Narrative: She has a soft 2/6 systolic ejection murmur heard best at the second right intercostal space. No ectopy. GI normal to inspection, nondistended, normoactive bowel sounds, soft to palpation, non-tender and non-distended Extremity no calf tenderness General Extremity: Negative for edema Skin Rashes: rashes noted Wound Narrative: The incision is intact with no dehiscence. There is no justyn-incisional erythema and no discharge from the incision. Assessment & Plan Assessment/Plan (1) Debility: (2) Lumbar stenosis: QUALIFIERS: Neurogenic claudication status: unspecified Qualified Code(s): M48.061 - Spinal stenosis, lumbar region without neurogenic claudication (3) History of lumbosacral spine surgery: (4) Acute blood loss anemia: (5) Hypothyroidism: QUALIFIERS: Hypothyroidism type: unspecified Qualified Code(s): E03.9 - Hypothyroidism, unspecified (6) Cognitive impairment: (7) Pain in right buttock: (8) Essential (primary) hypertension: (9) Increased urinary frequency: (10) Insomnia: QUALIFIERS: Insomnia type: unspecified Qualified Code(s): G47.00 - Insomnia, unspecified (11) Glucose intolerance (impaired glucose tolerance): (12) Morbid obesity: PLAN: Plan 1. Continue therapy 2. Restart levothyroxine 200 mcg daily 3. Discontinue hydrochlorothiazide 4. She received a decreased dose of lisinopril at 15 mg today and will monitor the blood pressure every 4 hours while awake for the next 48 hours. 5. Check an CAMILLE for cognitive deficits to r/o lupus vasculitis. 6. discussed glucose intolerance with her. Will have filtering machine tender helper consult to instruct in diet and weight management to prevent progression to DM II. She would like to lose weight nad is looking forward to being able to be more active again. 7. Has not been asking for pain medication........she did not know she had to ask for PRN medication. she would like to have the pain medications scheduled for the next few days.......she has no pain when resting in the recliner today but, she has pain with therapy. Will start tramadol 50 mg p.o. 3 times daily. She was taking Aleve 2 tabs twice a day at home for pain and she would like to restart. Will need to ask Dr. Cooepr if he is OK with this. 8. encouraged increased fluid intake today. Charges/Coding Visit Charges Inpatient E&M: 72199 Subs Hosp L1
[2024-01-17 10:23] VITALS: BP 119/49; PULSE 72
[2024-01-17] MEDS: traMADol 50 MG Tablet PO ×2 (12:52→20:56)
[2024-01-17 14:00] VITALS: BP 105/61; PULSE 84
[2024-01-17 18:00] VITALS: BP 100/62; PULSE 85; RESP 16; TEMP 36.6; O2SAT 100
[2024-01-17] MEDS: traZODone 100 MG Tablet 200 MG PO (20:53)
[2024-01-17] MEDS: Lisinopril 10 MG Tablet 15 MG PO (20:56)
[2024-01-17 22:00] VITALS: BP 111/60; PULSE 88
[2024-01-18] MEDS: Acetaminophen 500 MG Tablet 1000 MG PO ×3 (05:00→20:33)
[2024-01-18] MEDS: traMADol 50 MG Tablet PO ×3 (05:00→20:33)
[2024-01-18 06:00] VITALS: BP 126/51; PULSE 80; RESP 16; TEMP 36.3; O2SAT 96; BMI 41.7
[2024-01-18] MEDS: Levothyroxine 100 MCG Tablet 200 MCG PO (06:11)
[2024-01-18 10:00] VITALS: BP 109/44; PULSE 89
[2024-01-18 14:00] VITALS: BP 110/62; PULSE 86
[2024-01-18 14:10] LABS: ANTINUCLEAR ANTIBODIES DIRECT Negative (Negative)
[2024-01-18 16:10] LABS: Thyroglobulin Antibody 1312.1 IU/mL (0.0-0.9); Thyroid Peroxidase AB 98 IU/mL (0-34)
[2024-01-18 18:00] VITALS: BP 113/59; PULSE 90; RESP 17; TEMP 36.4; O2SAT 96
[2024-01-18] MEDS: traZODone 100 MG Tablet 200 MG PO (20:33)
[2024-01-18] MEDS: Lisinopril 10 MG Tablet 15 MG PO (20:35)
[2024-01-18 22:00] VITALS: BP 122/56
[2024-01-19] MEDS: traMADol 50 MG Tablet PO ×3 (05:39→21:07)
[2024-01-19] MEDS: Acetaminophen 500 MG Tablet 1000 MG PO ×3 (05:39→21:07)
[2024-01-19] MEDS: Levothyroxine 100 MCG Tablet 200 MCG PO (05:39)
[2024-01-19 06:00] VITALS: BP 102/70; PULSE 69; RESP 18; TEMP 35.9; O2SAT 96
--- NOTE | 2024-01-19 11:52 | PCM.PROGNOTE ---
Subjective Subjective Afebrile VSS -blood pressure over the past 48 hours has ranged from 100/62 to 122/56. Lisinopril was decreased to 15 mg at at bedtime from 20 mg because of low blood pressures. Heart rate has ranged from 69-90. Maintaining appropriate oxygen saturation on RA Oral intake - FOOD good FLUIDS good Discussed with nursing - no problems that need addressed Reviewed the THERAPY notes Medication list reviewed. Pain is better controlled with scheduled tramadol. She tells me she is sleeping well at night. She denies cephalgia, sore throat, cough, shortness of breath, chest pain, nausea/vomiting/abdominal pain, dysuria and calf tenderness. She is happy with her pain control. Thyroglobulin antibody is markedly increased at 1312 and the thyroid peroxidase antibody is 98. She most likely had Graves' disease as a child. she tells me that she and her brother both had radiation when children. Now she is hypothyroid. Objective Data Objective Data Vital Signs: Vital Signs Temp Pulse Resp BP Pulse Ox O2 Del Method O2 Flow Rate 96.6 F L 69 18 102/70 96 Room Air 0 01/19/24 06:00 01/19/24 06:00 01/19/24 06:00 01/19/24 06:00 01/19/24 06:00 01/19/24 06:00 01/16/24 21:45 FiO2 21 01/16/24 21:45 Oxygen Flow Rate (L/min) 0 Oxygen Delivery Method Room Air Weight: 226 lb 10.163 oz Body Mass Index (BMI) 41.7 Intake & Output: Intake and Output for Last 24 Hours 01/17/24 01/18/24 01/19/24 23:59 23:59 23:59 Intake Total 1500 / 1750 1814 / 1814 640 / 640 Output Total 850 / 1150 1470 / 1470 600 / 600 Balance 650 / 600 344 / 344 40 / 40 Lab / Micro Data 01/16/24 17:05 01/16/24 15:40 Labs: Laboratory Results - last 24 hr 01/16/24 17:05: Thyroglobulin Antibody 1312.1 H, Thyroid Peroxidase Ab 98 H 01/17/24 10:32: CAMILLE Screen Negative, MARIA INES-1 Antibody Not Reportable, SS-A/Ro IgG Antibody Not Reportable, SS-B/La IgG Antibody Not Reportable, Sm (Sandra) Antibody Not Reportable, HANDLE AND VENT MACHINE OPERATOR Antibody Not Reportable, Scl-70 Scleroderma Ab Not Reportable, Double Strand DNA Ab Not Reportable, Antichromatin Antibodies Not Reportable, Centromere B Antibody Not Reportable Physical Exam Const alert, oriented x3 and no apparent distress General Appearance: cooperative HEENT moist oral mucous membranes Resp clear to auscultation bilaterally Cardio regular rate, regular rhythm and no gallops GI normal to inspection, nondistended, normoactive bowel sounds, soft to palpation and non-tender Extremity no calf tenderness General Extremity: Negative for edema Skin Rashes: no rashes Wound Narrative: The incision is intact with no dehiscence. There is no justyn-incisional erythema and no purulent discharge from the incision. No significant swelling in the justyn-incisional area. Psych affect normal Assessment & Plan Assessment/Plan (1) Debility: (2) Lumbar stenosis: QUALIFIERS: Neurogenic claudication status: unspecified Qualified Code(s): M48.061 - Spinal stenosis, lumbar region without neurogenic claudication (3) History of lumbosacral spine surgery: (4) Acute blood loss anemia: PLAN: Stable (5) Hypothyroidism: QUALIFIERS: Hypothyroidism type: unspecified Qualified Code(s): E03.9 - Hypothyroidism, unspecified (6) Cognitive impairment: (7) Pain in right buttock: (8) Essential (primary) hypertension: (9) Increased urinary frequency: (10) Insomnia: QUALIFIERS: Insomnia type: unspecified Qualified Code(s): G47.00 - Insomnia, unspecified (11) Glucose intolerance (impaired glucose tolerance): (12) Morbid obesity: PLAN: Plan 1. Continue therapy 2. No changes to the drug regimen today 3. Since there has been a COVID outbreak within the hospital she and I discussed the symptoms of COVID and I explained that if she develops a headache, fatigue, cough, shortness of breath, sore throat that she should tell someone so that we can get a COVID 19 rapid antigen test. Charges/Coding Visit Charges Inpatient E&M: 37925 Subs Hosp L1
--- NOTE | 2024-01-19 12:51 | CASEMGMT ---
Addendum entered by Ernestina Will 01/19/24 16:03: [facility] and [facility] can accept. Yasmeen is reviewing. Addendum entered by Ernestina Will 01/19/24 14:47: Son called this worker stating CARLOS is 78 yo and unable to care for pt, even though the CARLOS will say she can. Son requesting other options for DC. SW educated to SNF placement since pt does not have the funds to cover AL. SW asked several questions to assist in determining Medicaid eligibility. Pt may qualify but did just sell a house recently. SW offered for [facility] to screen for eligibility and son agreed. However, SW educated to pt using Medicare benefit for DC to a SNF. Son agreed and appreciative. Son agreed to have text link sent to him of [facility] SNFs to review. SW sent list to son including quality and resource data via [employer]. Son selecting all facilities in [place]. SW to send referrals. SW also provided printed SNF list to pt to review choices. SW sent referrals via [employer] to [facility], [facility], [facility], and [facility]. Email referral sent to [facility]. Phoned Haylee at [facility] for a hand off as well. Will continue to follow. Plan: DC 01/22 to SNF, skilled Original Note: Social Work IDT met with patient and conference call with son for Team meeting. Discussed patient's progress in PT/OT/ST/SN. Educated to Medicare EDC 01/22. IDT is recommending pt does not return home alone, and prefers AL for oversight. SW inquired about plan for DC and finances, as SNF may need to be an option as well. Son confirmed he works full-time, but pt offered to DC to CARLOS's house. Son agreed to that option. SW requested to speak with CARLOS to verify and offer therapy training. Pt agreed. SW to f/u with CARLOS. SW to also coordinate skilled HHC and any DME needs. is also recommending pt complete Machine Shop Worker Rehab program to determine if she is safe to return to driving. SW provided resources to pt. IDT also recommending waiting to complete advanced directives at this time d/t pt's cognition. Son is Next of Kin without HCPOA, whom pt expressed wanting to name upon admission. SW will continue to follow. Ernestina Will, TONI ORDER BUILDER LOADER
--- NOTE | 2024-01-19 15:49 | PN_ITS ---
Subjective Subjective Jenelle was seen on TEAM rounds today. Her son Reid participated by phone. Afebrile VSS - Maintaining appropriate oxygen saturation on RA Oral intake - FOOD good FLUIDS good Discussed with nursing - no problems that need addressed Reviewed the THERAPY notes - She Objective Data Objective Data Vital Signs: Vital Signs Temp Pulse Resp BP Pulse Ox O2 Del Method O2 Flow Rate 96.6 F L 69 18 102/70 96 Room Air 0 01/19/24 06:00 01/19/24 06:00 01/19/24 06:00 01/19/24 06:00 01/19/24 06:00 01/19/24 06:00 01/16/24 21:45 FiO2 21 01/16/24 21:45 Oxygen Flow Rate (L/min) 0 Oxygen Delivery Method Room Air Weight: 226 lb 10.163 oz Body Mass Index (BMI) 41.7 Intake & Output: Intake and Output for Last 24 Hours 01/17/24 01/18/24 01/19/24 23:59 23:59 23:59 Intake Total 1500 / 1750 1814 / 1814 865 / 865 Output Total 850 / 1150 1470 / 1470 600 / 600 Balance 650 / 600 344 / 344 265 / 265 Lab / Micro Data 01/16/24 17:05 01/16/24 15:40 Labs: Laboratory Results - last 24 hr 01/16/24 17:05: Thyroglobulin Antibody 1312.1 H, Thyroid Peroxidase Ab 98 H 01/17/24 10:32: MARIA INES-1 Antibody Not Reportable, SS-A/Ro IgG Antibody Not Reportable, SS-B/La IgG Antibody Not Reportable, Sm (Sandra) Antibody Not Reportable, BREAKDOWN MILL OPERATOR Antibody Not Reportable, Scl-70 Scleroderma Ab Not Reportable, Double Strand DNA Ab Not Reportable, Antichromatin Antibodies Not Reportable, Centromere B Antibody Not Reportable
--- NOTE | 2024-01-19 16:00 | CASEMGMT ---
Social Work- SW faxed script and supportive documentation for driving rehab. INESSA Cat
--- NOTE | 2024-01-19 16:01 | EKG12_ITS ---
Test Reason : SOB Blood Pressure : / mmHG Vent. Rate : 081 BPM Atrial Rate : 081 BPM P-R Int : 124 ms QRS Dur : 084 ms QT Int : 384 ms P-R-T Axes : 017 -10 000 degrees QTc Int : 446 ms Normal sinus rhythm Nonspecific ST and T wave abnormality Abnormal ECG Confirmed by MEME FISCHER, MARIEL ([id number]), editor map GUIDO ALEXNADER ([id number]) on 01/23/2024 10:18:49 AM Referred By: Josh Sanchez Confirmed By:JUSTICE VALENTINE MD
[2024-01-19 18:00] VITALS: BP 97/44; PULSE 84; RESP 19; TEMP 36; O2SAT 94
[2024-01-19 20:40] VITALS: BP 94/52; PULSE 80; RESP 19; O2SAT 94
[2024-01-19 20:59] VITALS: BP 94/52; PULSE 80
[2024-01-19] MEDS: Metoprolol Tartrate 25 MG Tablet 12.5 MG PO (20:59)
[2024-01-19] MEDS: traZODone 100 MG Tablet 150 MG PO (21:03)
[2024-01-19] MEDS: Donepezil HCl 5 MG Tablet PO (21:06)
--- NOTE | 2024-01-19 22:26 | NURSING ---
pt rings to use the toilet and staff to assist. pt noted that gait was shuffling and pt needed directions to the toilet and then to sit down. pt started pulling pants down as she got to the br door and then tried to sit down before turning to get on the toilet pt was also noted to be staring straight ahead instead of looking were she was going. pt got up from toilet and pulled pants up staff noted there was no urine in the speci hat. pt returned to recliner and staff assisted with positioning. pt questioned if she felt she emptied her bladder, d/t the was no urine in the speci hat, pt responded well i thought i had to go
[2024-01-20 06:00] VITALS: BP 124/70; PULSE 71; RESP 18; TEMP 36.3; O2SAT 99
[2024-01-20] MEDS: Acetaminophen 500 MG Tablet 1000 MG PO ×3 (06:36→20:09)
[2024-01-20] MEDS: traMADol 50 MG Tablet PO ×3 (06:36→20:09)
[2024-01-20] MEDS: Levothyroxine 175 MCG Tablet PO (06:36)
[2024-01-20 08:55] VITALS: BP 95/46; PULSE 75
[2024-01-20] MEDS: Metoprolol Tartrate 25 MG Tablet 12.5 MG PO ×2 (08:55→20:08)
--- NOTE | 2024-01-20 14:18 | CASEMGMT ---
Addendum entered by Ernestina Will 01/23/24 12:19: 7000 completed. DC paperwork sent to [facility] via [employer]. Original Note: Social Work SW phoned son to update on [facility], [facility] and [facility] accepting. Son spoke with pt and their preference is [facility]. SW updated all SNFs via [employer]. Son can transport. IDT updated. 7000 started. Plan: DC 01/22 to [facility], skilled TONI Damon
--- NOTE | 2024-01-20 15:19 | PN_ITS ---
Subjective Subjective Afebrile Blood pressure today has ranged from 95/46 to 124/70. Heart rate is better today. With ambulation the HR only went up to 104. Lisinopril is on hold but, likely is still having an effect on the BP. Will continue to monitor BP and HR closely. Better able to tolerate therapy today with much less SOB. She denies lightheadedness. No cough, sore throat, sweats or chills. Denies CP, calf pain, dysuria, R buttock pain. Slept well last night with a decreased dose of Trazodone (175 mg rather than 200 mg). States her pain control is adequate. Denies any GI sx with the initiation of the Aricept last night. Eating well and has good fluid intake. Somewhat apprehensive about diagnosis of dementia. She took care of her mother who had dementia and her brother with dementia recently . I reassured her that there are new treatments for Alzheimer's that slow down progression and there is ongoing research. I also related that I believe she has not been taking her medications correctly at times and I suspect this contributes to cognitive dysfunction as well. We discussed following up with Dr. Jean as an OP to manage the thyroid medication. She will also need supervision with medications. EKG shows NS ST and T wave changes in the anterior precordial leads. No QT prolongation. Objective Data Objective Data Vital Signs: Vital Signs Temp Pulse Resp BP Pulse Ox O2 Del Method O2 Flow Rate 97.3 F L 75 18 95/46 L 99 Room Air 0 01/20/24 06:00 01/20/24 08:55 01/20/24 06:00 01/20/24 08:55 01/20/24 06:00 01/20/24 10:00 01/16/24 21:45 FiO2 21 01/16/24 21:45 Oxygen Flow Rate (L/min) 0 Oxygen Delivery Method Room Air Weight: 226 lb 10.163 oz Body Mass Index (BMI) 41.7 Intake & Output: Intake and Output for Last 24 Hours 01/18/24 01/19/24 01/20/24 23:59 23:59 23:59 Intake Total 1814 / 1814 1165 / 1165 900 / 900 Output Total 1470 / 1470 975 / 1225 1550 / 1550 Balance 344 / 344 190 / -60 -650 / -650 Lab / Micro Data 01/16/24 17:05 01/16/24 15:40 Physical Exam Const alert and oriented x3 General Appearance: cooperative HEENT HEENT Narrative: No pharyngeal injection and not posterior exudates in the throat. No adenopathy in the neck Resp normal respiratory effort and clear to auscultation bilaterally Resp Narrative: Able to speak in complete sentences. No cough with deep breathing. Effort and Inspection: Negative for tachypneic Cardio regular rate, regular rhythm and no gallops GI normal to inspection, nondistended, normoactive bowel sounds, soft to palpation and non-tender Extremity no calf tenderness General Extremity: Negative for edema Skin Wound Narrative: The incision is intact with no dehiscence, no justyn-incisional erythema and no discharge from the incision. There is no significant swelling in the justyn- incisional area either. Neuro Neuro Narrative: Denies neuropathic pain today. Psych cooperative Psych Narrative: Worried today about having dementia and what her life will look like going forward. Denies feeling anxious or depressed however. Assessment & Plan Assessment/Plan (1) Debility: (2) Lumbar stenosis: QUALIFIERS: Neurogenic claudication status: unspecified Qualified Code(s): M48.061 - Spinal stenosis, lumbar region without neurogenic claudication (3) History of lumbosacral spine surgery: (4) Acute blood loss anemia: PLAN: Stable (5) Hypothyroidism: QUALIFIERS: Hypothyroidism type: unspecified Qualified Code(s): E 03.9 - Hypothyroidism, unspecified (6) Cognitive impairment: (7) Pain in right buttock: (8) Essential (primary) hypertension: (9) Increased urinary frequency: (10) Insomnia: QUALIFIERS: Insomnia type: unspecified Qualified Code(s): G47.00 - Insomnia, unspecified (11) Glucose intolerance (impaired glucose tolerance): (12) Morbid obesity: PLAN: Plan 1. Continue therapy 2. Discontinue lisinopril. Continue Lopressor 12.5 mg twice daily and continue to monitor heart rate and blood pressure closely. 3. Continue Aricept 5 mg p.o. nightly 4. Tolerating the decrease in trazodone to 175 mg at at bedtime with no recurrence of insomnia. 5. Levothyroxine has been decreased to 175 mcg daily and she is agreeable to following up with Dr. Ryne Jean from endocrinology postdischarge from rehab. Will need follow-up thyroid studies in 4 to 6 weeks. 6. Continue scheduled tramadol 3 times daily and consider transitioning to as needed tramadol next week. 7. Watch closely for any signs/symptoms of depression related to diagnosis of dementia. 8. She will need a new primary care physician at discharge from acute rehab. Will discuss options with her. Charges/Coding Visit Charges Inpatient E&M: 76118 Subs Hosp L1
[2024-01-20 17:48] VITALS: BP 123/69; PULSE 70; RESP 16; TEMP 36.9; O2SAT 97
[2024-01-20 20:00] VITALS: PULSE 70; RESP 16; O2SAT 97
[2024-01-20 20:08] VITALS: BP 102/51; PULSE 77
[2024-01-20] MEDS: Donepezil HCl 5 MG Tablet PO (20:09)
[2024-01-20] MEDS: traZODone 100 MG Tablet 150 MG PO (20:09)
[2024-01-20] MEDS: Senna/Docusate Sodium 1 Tablet 2 TABLET PO (20:10)
[2024-01-21] MEDS: Levothyroxine 175 MCG Tablet PO (05:34)
[2024-01-21] MEDS: traMADol 50 MG Tablet PO ×3 (05:34→21:18)
[2024-01-21] MEDS: Acetaminophen 500 MG Tablet 1000 MG PO ×3 (05:34→21:17)
[2024-01-21 05:53] VITALS: BP 123/68; PULSE 69; RESP 16; TEMP 36.6; O2SAT 96
[2024-01-21 08:26] VITALS: BP 123/68; PULSE 69
[2024-01-21] MEDS: Metoprolol Tartrate 25 MG Tablet 12.5 MG PO ×2 (08:26→21:22)
[2024-01-21 18:00] VITALS: BP 112/56; PULSE 70; RESP 16; TEMP 37; O2SAT 98
[2024-01-21] MEDS: traZODone 100 MG Tablet 150 MG PO (21:16)
[2024-01-21] MEDS: Donepezil HCl 5 MG Tablet PO (21:16)
[2024-01-21 21:22] VITALS: PULSE 69
[2024-01-21 21:25] VITALS: BP 127/60; PULSE 69
[2024-01-22 06:00] VITALS: BP 105/62; PULSE 72; RESP 19; TEMP 36.9; O2SAT 96
[2024-01-22] MEDS: Levothyroxine 175 MCG Tablet PO (06:10)
[2024-01-22] MEDS: Acetaminophen 500 MG Tablet 1000 MG PO ×3 (06:10→20:53)
[2024-01-22] MEDS: traMADol 50 MG Tablet PO ×3 (06:16→20:54)
[2024-01-22 07:33] VITALS: BP 105/62; PULSE 72
[2024-01-22] MEDS: Metoprolol Tartrate 25 MG Tablet 12.5 MG PO ×2 (07:33→20:52)
[2024-01-22] MEDS: Senna/Docusate Sodium 1 Tablet 2 TABLET PO (07:34)
[2024-01-22 17:35] VITALS: BP 97/53; PULSE 72; RESP 18; TEMP 37.1; O2SAT 93
[2024-01-22 20:52] VITALS: PULSE 78
[2024-01-22] MEDS: traZODone 100 MG Tablet 150 MG PO (20:54)
[2024-01-22] MEDS: Donepezil HCl 5 MG Tablet PO (20:54)
[2024-01-22 21:37] VITALS: BP 107/40; PULSE 72; RESP 16; TEMP 36.2; O2SAT 95
[2024-01-23] MEDS: traMADol 50 MG Tablet PO ×2 (05:51→13:17)
[2024-01-23] MEDS: Levothyroxine 175 MCG Tablet PO (05:51)
[2024-01-23] MEDS: Acetaminophen 500 MG Tablet 1000 MG PO ×2 (05:51→13:17)
[2024-01-23 05:59] VITALS: BP 123/58; PULSE 69; RESP 16; TEMP 36.6; O2SAT 98
[2024-01-23 07:43] VITALS: BP 112/50; PULSE 83; RESP 16; O2SAT 96
[2024-01-23 07:44] VITALS: PULSE 83
[2024-01-23] MEDS: Metoprolol Tartrate 25 MG Tablet 12.5 MG PO (07:44)
[2024-01-23] MEDS: Senna/Docusate Sodium 1 Tablet 2 TABLET PO (07:45)
[2024-01-23 07:51] VITALS: RESP 16
--- NOTE | 2024-01-23 10:02 | PCM.TXEXTCAR ---
Diet Diet Order/Speech Therapy: 01/17/24 15:17 Carb [Diet: Carbohydrate Controlled] 1700 calories daily Dietary Modifications:: Sodium Restricted Routine Orders/Code Status Enema Type: Fleetz Enema Frequency: Daily PRN Suppository Type: Dulcolax 10mg Suppository Frequency: Daily PRN O2 Liters per Minute: 1-2 O2 Frequency: PRN Keep PO Greater than or Equal to (%): 90 Routine Lab Work: - (TSH and T4 in 1 month) Code Status: Full Code Wound(s) lumbar: Wound Type: Surgical Incision (S/P lumbar laminectomy and fusion. ) Therapies Weight Bearing: Full weight bearing Physical Therapy: Eval and Treat Occupational Therapy: Eval and Treat Speech Therapy: Eval and Treat Problem/Diagnosis (1) Debility: Status: Acute Code(s): R53.81 - Other malaise Plan: Continue PT/OT and ST at transfer to SNF. (2) Lumbar stenosis: Status: Acute Code(s): M48.061 - Spinal stenosis, lumbar region without neurogenic claudication Plan: With radicular pain R buttock and RLE. Denies pain at the time of DC from rehab. (3) History of lumbosacral spine surgery: Status: Acute Code(s): Z98.890 - Other specified postprocedural states Plan: Surgery on 01/05/24 at [facility] by Dr. Cooper. Unable to care for herself at home. Lives alone and likely has early dementia. Will continue PT/OT/ST at SNF at DC from rehab. (4) Acute blood loss anemia: Status: Acute Code(s): D62 - Acute posthemorrhagic anemia Plan: Stable at 10. (5) Hypothyroidism: Status: Chronic Code(s): E03.9 - Hypothyroidism, unspecified Plan: Had Graves disease when a child and underwent radiation. Started on a thyroid supplement in the mid s. Has not been consistent with medication. TSH the end of November was < 0.01 and while in rehab the TSH was 5.34 with a T4 of 1.34. Admits to probably not taking medication as directed. Dose decreased to 175 mcg daily while on rehab. She will follow up with Dr. Ryne Jean in March. TSH and T4 in 1 month. (6) Cognitive impairment: Status: Chronic Code(s): R41.89 - Other symptoms and signs involving cognitive functions and awareness Plan: Brother recently with dementia and her mother had dementia as well. TSH fluctuating due to noncompliance with medication and this is likely contributing to cognitive difficulties. B12 and CAMILLE negative. Plan follow up with neurology, Dr. Lauri Layne on 03/01/24, to evaluate for dementia and discuss treatment. Started on Aricept 5 mg while on rehab and is tolerating with no adverse side effects. No QT prolongation on EKG. (7) Pain in right buttock: Status: Resolved Code(s): M79.18 - Myalgia, other site Comment: better since Lumbar laminectomy/fusion but, still present. (8) Essential (primary) hypertension: Status: Chronic Code(s): I10 - Essential (primary) hypertension Plan: She was having tachycardia with exertion and SOB. Lisinopril was discontinued and she transition to Lopressor 12.5 mg twice daily which she is tolerating well and the tachycardia with exertion is much improved. Will transition to Toprol XL 25 mg at HS at [place]. (9) Increased urinary frequency: Status: Acute Code(s): R35.0 - Frequency of micturition Plan: UA negative. (10) Insomnia: Status: Chronic Code(s): G47.00 - Insomnia, unspecified Plan: Was taking 200 mg of Trazodone at HS for insomnia. the insomnia may have been related to the high dose of levothyroxine. She has been taking 200 mcg daily for several years and this is a high dose for someone her size. Discussed with endocrinology and the dose was decreased to 175 mcg daily. Since she has been on rehab and she will be going to a senior living facility compliance with the medication is guaranteed. The dose of trazodone was decreased to 150 mg nightly while on rehab and she has been sleeping well. TSH and T4 have been ordered for 1 month and then follow-up with Dr. Jean. (11) Glucose intolerance (impaired glucose tolerance): Status: Chronic Code(s): R73.02 - Impaired glucose tolerance (oral) Plan: Hemoglobin A1c is 5.7. Consult with the dietitian was ordered on rehab. Patient was instructed in a carb controlled diet. Weight loss was recommended. She has gained a lot of weight over the past year secondary to immobility related to severe lumbar canal stenosis. (12) Morbid obesity: Status: Chronic Code(s): E66.01 - Morbid (severe) obesity due to excess calories Plan: Weight loss was recommended and now that she has had surgery and the radicular pain in the right leg has resolved she can be more active and wants to lose weight. 1700 calorie, carb controlled diet at [place]. Plan 1. DC to [facility], [facility]. 2. Follow up has been scheduled with Dr. Layne for neurology, Dr. Cooper and Dr. Sanchez for PCP. Dr. Jean's office will call her to schedule and appt with Dr. Jean for March. 3. TSH and T4 in 1 month. 4. Continue Aricept 5 mg at HS 5. Transition to Toprol XL 25 mg at HS tonight. Allergies/Procedures Done in Hospital Allergies Penicillins Allergy (Intermediate, Verified 01/08/24 12:41) Hives Procedures: None Type of Care/Length of Stay Estimated LOS: Convalescent Care Less Than 30 days Type of Care Needed: Skilled Rehab Potential: Good Prognosis: Good Additional Orders/Day of Discharge H&P will serve as current which was dated: 01/10/24 Day of Discharge: 01/23/24 Dietary and Speech Recommendations Dietitian Recommendations/Changes: Adjust to consistent carb diet with low sodium, 1700 calories. D/c 120ml Ensure plus high protein with medpass d/t pt refusal. Consult if there are changes in nutrition status. Reviewed and approved by Stephani Davison, RD, LD. Follow Up Care Please follow up with your Primary Care Physician in: see appts listed later in this document. Discharge Plan Admission Admit Date/Time: 01/09/24 14:19 Primary Reason for Your Visit: Debility due to lumbar stenosis/laminectomy and fusion. Attending Provider: Maureen Mata Primary Care Provider: Care Physician,No Primary Consulting Providers: Josh Sanchez Chi Discharge Orders/Prescriptions Prescriptions: New levothyroxine 175 mcg Tablet 175 mcg PO DAILY@0600 Qty: 1 0RF donepezil 5 mg Tablet 5 mg PO QHS Qty: 1 0RF sennosides-docusate sodium [Stimulant Laxative Plus] 8.6-50 mg Tablet 1 tab PO BID Qty: 1 0RF magnesium hydroxide 400 mg/5 mL Suspension 30 ml PO X1 PRN (Reason: Constipation) Qty: 30 0RF trazodone 100 mg Tablet 150 mg PO QHS Qty: 2 0RF bisacodyl 10 mg Suppository 10 mg ID X1 PRN (Reason: Constipation) Qty: 1 0RF metoprolol succinate 25 mg tablet extended release 24 hr 25 mg PO QHS Qty: 30 0RF tramadol 50 mg tablet 50 mg PO Q6H PRN (Reason: pain) 7 Days Qty: 24 0RF Continued acetaminophen 500 mg Tablet 1,000 mg PO Q8 Qty: 0 0RF Discontinued hydrocodone-acetaminophen 5-325 mg Tablet 1 - 2 tab PO Q6H PRN PRN (Reason: Pain Score 1-10) Qty: 0 0RF heparin (porcine) 5,000 unit/mL Solution 5,000 unit subcut Q12 Qty: 0 0RF levothyroxine 200 mcg capsule 200 mcg PO DAILY hydrochlorothiazide 25 mg tablet 25 mg PO DAILY trazodone 100 mg tablet 200 mg PO QHS lisinopril 20 mg tablet 20 mg PO QHS No Action polyethylene glycol 3350 [Miralax] 17 gram/dose powder 17 g PO DAILY Qty: 119 0RF Referrals / Follow Up: Jak Cooper DO [Med Staff - Active Staff] - 01/27/24 1:30 pm Lauri Layne MD [Non-Staff] - 03/01/24 1:40 pm Ryne Jean MD [Med Staff - Courtesy Staff] - (referral faxed office will call for appointment ) Josh Sanchez Chi, MD [Med Staff - Active Staff] - 01/24/24 2:20 pm Disposition Disposition (needs filled in before D/C Order can be placed): [facility] Facility (2) Lumbar stenosis Qualifiers: Neurogenic claudication status: unspecified Qualified Code(s): M48.061 - Spinal stenosis, lumbar region without neurogenic claudication (5) Hypothyroidism Qualifiers: Hypothyroidism type: unspecified Qualified Code(s): E03.9 - Hypothyroidism, unspecified (10) Insomnia Qualifiers: Insomnia type: unspecified Qualified Code(s): G47.00 - Insomnia, unspecified
--- NOTE | 2024-01-23 12:00 | DS.PCM_ITS ---
Providers Date of Admission: 01/09/24 Date of Discharge: 01/23/24 Primary Care Physician: No Primary Care Phys none Reason For Visit: LUMBAR STENOSIS/BACK PAIN Diagnosis Discharge Diagnosis (1) Debility: Status: Acute Code(s): R53.81 - Other malaise Plan: Continue PT/OT and ST at transfer to SNF. (2) Lumbar stenosis: Status: Acute Code(s): M48.061 - Spinal stenosis, lumbar region without neurogenic claudication Qualifiers: Neurogenic claudication status: unspecified Qualified Code(s): M48.061 - Spinal stenosis, lumbar region without neurogenic claudication Plan: With radicular pain R buttock and RLE. Denies pain at the time of DC from rehab. (3) History of lumbosacral spine surgery: Status: Acute Code(s): Z98.890 - Other specified postprocedural states Plan: Surgery on 01/05/24 at [facility] by Dr. Cooper. Unable to care for herself at home. Lives alone and likely has early dementia. Will continue PT/OT/ST at SNF at DC from rehab. (4) Acute blood loss anemia: Status: Acute Code(s): D62 - Acute posthemorrhagic anemia Plan: Stable at 10. (5) Hypothyroidism: Status: Chronic Code(s): E03.9 - Hypothyroidism, unspecified Qualifiers: Hypothyroidism type: unspecified Qualified Code(s): E03.9 - Hypothyroidism, unspecified Plan: Had Graves disease when a child and underwent radiation. Started on a thyroid supplement in the mid s. Has not been consistent with medication. TSH the end of November was < 0.01 and while in rehab the TSH was 5.34 with a T4 of 1.34. Admits to probably not taking medication as directed. Dose decreased to 175 mcg daily while on rehab. She will follow up with Dr. Ryne Jean in March. TSH and T4 in 1 month. (6) Cognitive impairment: Status: Chronic Code(s): R41.89 - Other symptoms and signs involving cognitive functions and awareness Plan: Brother recently with dementia and her mother had dementia as well. TSH fluctuating due to noncompliance with medication and this is likely contributing to cognitive difficulties. B12 and CAMILLE negative. Plan follow up with neurology, Dr. Lauri Layne on 03/01/24, to evaluate for dementia and discuss treatment. Started on Aricept 5 mg while on rehab and is tolerating with no adverse side effects. No QT prolongation on EKG. (7) Pain in right buttock: Status: Resolved Code(s): M79.18 - Myalgia, other site (8) Essential (primary) hypertension: Status: Chronic Code(s): I10 - Essential (primary) hypertension Plan: She was having tachycardia with exertion and SOB. Lisinopril was discontinued and she transition to Lopressor 12.5 mg twice daily which she is tolerating well and the tachycardia with exertion is much improved. Will transition to Toprol XL 25 mg at HS at [place]. (9) Increased urinary frequency: Status: Acute Code(s): R35.0 - Frequency of micturition Plan: UA negative. (10) Insomnia: Status: Chronic Code(s): G47.00 - Insomnia, unspecified Qualifiers: Insomnia type: unspecified Qualified Code(s): G47.00 - Insomnia, unspecified Plan: Was taking 200 mg of Trazodone at HS for insomnia. the insomnia may have been related to the high dose of levothyroxine. She has been taking 200 mcg daily for several years and this is a high dose for someone her size. Discussed with endocrinology and the dose was decreased to 175 mcg daily. Since she has been on rehab and she will be going to a assisted facility compliance with the medication is guaranteed. The dose of trazodone was decreased to 150 mg nightly while on rehab and she has been sleeping well. TSH and T4 have been ordered for 1 month and then follow-up with Dr. Jean. (11) Glucose intolerance (impaired glucose tolerance): Status: Chronic Code(s): R73.02 - Impaired glucose tolerance (oral) Plan: Hemoglobin A1c is 5.7. Consult with the dietitian was ordered on rehab. Patient was instructed in a carb controlled diet. Weight loss was recommended. She has gained a lot of weight over the past year secondary to immobility related to severe lumbar canal stenosis. (12) Morbid obesity: Status: Chronic Code(s): E66.01 - Morbid (severe) obesity due to excess calories Plan: Weight loss was recommended and now that she has had surgery and the radicular pain in the right leg has resolved she can be more active and wants to lose weight. 1700 calorie, carb controlled diet at DC. Plan 1. DC to [facility], [facility]. 2. Follow up has been scheduled with Dr. Layne for neurology, Dr. Cooper and Dr. Sanchez for PCP. Dr. Jean's office will call her to schedule and appt with Dr. Jean for March. 3. TSH and T4 in 1 month. 4. Continue Aricept 5 mg at HS 5. Transition to Toprol XL 25 mg at HS tonight. Medications at Discharge Home Medications acetaminophen 500 mg tablet 1,000 mg (2 x 500 mg) PO Q8 pain 1-10 #0 tabs 01/09/24 polyethylene glycol 3350 17 gram/dose oral powder (Miralax) 17 g PO DAILY stool softner #119 grams 01/09/24 bisacodyl 10 mg rectal suppository 10 mg NJ X1 PRN Constipation #1 ea 01/23/24 donepezil 5 mg tablet 5 mg PO QHS #1 TAB 01/23/24 levothyroxine 175 mcg tablet 175 mcg PO DAILY@0600 #1 TAB 01/23/24 magnesium hydroxide 400 mg/5 mL oral suspension 30 ml PO X1 PRN Constipation #30 mL 01/23/24 metoprolol succinate 25 mg tablet,extended release 24 hr 25 mg PO QHS #30 tabs 01/23/24 sennosides 8.6 mg-docusate sodium 50 mg tablet (Stimulant Laxative Plus) 1 tab PO BID #1 TAB 01/23/24 tramadol 50 mg tablet 50 mg PO Q6H PRN pain 7 days #24 tabs 01/23/24 trazodone 100 mg tablet 150 mg (1.5 x 100 mg) PO QHS #2 tabs 01/23/24 Hospital Course Operations - (01/05/24 - Lumbar laminectomy and fusion by Dr. Cooper. She is status post L5- S1 posterior lumbar interbody fusion with bilateral laminectomies, foraminotomies, facetectomies and decompression of bilateral nerve roots on 01/05/[address] Cooper.) Procedures None Summary of Care Provided Minutes Spent on Discharge: 42 Hospital Course: Ms Jenelle Pierson is a 73 YO female with a PMH of HTN, hx of Graves disease (S/P irradiation as a child and now on Thyroid replacement), OA, obesity, anxiety/depression and lumbar canal stenosis. She underwent a L5-S1 posterior lumbar interbody fusion with bilateral laminectomies, foraminotomies, facetectomies and decompression of bilateral nerve roots on 01/05/[address] Cooper. She was discharged home on 01/06/2024 but returned to the emergency department at [facility] on 01/08/2024 stating she was unable to take care of herself at home. She had experienced 3 falls since discharging home. She lives by herself. Recently relocated to [place] from [place] to be closer to her son, Reid, who lives in [place]. He related to me that he noticed she had been having some memory difficulties for the previous 6 months. Her brother recently of complications due to dementia and her mother also had dementia when she passed. She was living alone in [place], managing her own finances and medications and driving. She was admitted to the acute rehab unit at [facility] on 01/09/2024 for 3 hours of therapy daily to strengthen and restore function at or near her level prior to the recent surgery. She admitted to having gained a lot of weight over the past year due to severe R buttock, R leg and back pain with inability to move much. She expressed a desire to lose weight and get more active. She was seen by the manager sound and counselled in wt loss and in carb control. HGBA1C is mildly elevated at 5.7. She was taking Levothyroxine 200 mcg daily at admission to rehab. Her TSH on 12/06/2023 was less than 0.01 which is consistent with hyperthyroidism. She tells me that she has been on 200 mcg daily for several years. There was no T4 done in November. TSH was repeated on rehab and was mildly increased at 5.34 but the T4 was within normal limits at 1.34. I suspect she has not been consistently taking her medications appropriately and she admitted that this is probably true. Since the TSH was 0.01 in late November and she is on a high dose of levothyroxine I discussed results with endocrinology. It was suggested we decrease the dose to 175 mcg daily and repeat a TSH and a T4 in 4 weeks. She is going to follow up with Dr. Ryne Jean inmarch to manage the thyroid supplementation. She was getting tachycardic with exertion with HR's in the 120's. She complained of SOB. She was transitioned from Lisinopril 20 mg to Lopressor 12.5 mg BID and the tachycardia resolved. She was not SOB with therapy any longer. The BP was well controlled prior to DC. At [place] she was transitioned from Lopressor 12.5 mg twice daily to metoprolol XL 25 mg at bedtime. I suspect much of the tachycardia is due to severe deconditioning due to large amount of weight gain over the past year and inability to exercise. Jenelle was seen by ST while on rehab. She scored only 34 out of a possible 50 at admission on the BCAT (brief cognitive assessment Tool). This is indicative of mild cognitive impairment in the areas of orientation, attention, memory and executive function. The BCAT improved to 39/50 at the time of discharge. Speech therapy is recommending ongoing speech therapy to address cognitive deficits so that she may return to living alone. She may continue to require assistance with med management and finance management. She was started on Aricept 5 mg at while on rehab and has had no adverse reactions. An EKG was checked and she has no QT prolongation with the use of Trazodone and Aricept. The trazodone dose was decreased to 150 mg at HS from 200 mg and she is sleeping well at [place]. May be able to decrease to 100 mg if she continues to sleep well. She continues to be impulsive with poor safety awareness when working with OT and PT. She is able to do 3 sit to stands in 30 seconds using her upper extremities to push up at the time of discharge. Her goal was 8 sit to stands in 30 seconds. Her goal for the TUG (turn up and go) test was < 20sec and she was able to do the TUG in 44.4 sec prior to DC but, she is still confused doing the test and required max cues to do the test properly. She has ambulated up to 160 feet with a front wheeled walker at contact-guard assist but continues to fatigue easily. Her goal for ambulation was 300 feet with the least restrictive device at mod I on various surfaces. She has completed 5 steps of various heights at contact-guard assist. With Occupational Therapy she is independent with eating and requires supervision/set up for grooming and upper body dressing. She is standby assist for bathing and requires minimal assistance with lower body dressing. She is still max assist for toileting but contact- guard assist for toilet transfer. She is contact-guard assist for tub/shower transfer. It was the opinion of the TEAM that the patient was not yet ready to DC home alone and she was discharged to [facility] on 01/23/2024. She has follow up appts scheduled with Dr. Cooper for orthopedics, Dr. Sanchez for PCP, Dr. Layne form neurology for evaluation for dementia. Dr. Jean's office will contact her to schedule an appt for March. She will have a TSH and T4 in 4 weeks. Physical Exam Const alert and oriented x3 Constitutional Narrative: She is apprehensive about the possible diagnosis of dementia. She is glad to be going to neurology to be evaluated and treated. General Appearance: cooperative HEENT HEENT Narrative: No pharyngeal injection and not posterior exudates in the throat. No adenopathy in the neck Resp normal respiratory effort and clear to auscultation bilaterally Resp Narrative: Able to speak in complete sentences. No cough with deep breathing. Effort and Inspection: Negative for tachypneic Cardio regular rate, regular rhythm and no gallops GI normal to inspection, nondistended, normoactive bowel sounds, soft to palpation and non-tender Extremity no calf tenderness General Extremity: Negative for edema Skin Wound Narrative: The incision is intact with no dehiscence, no justyn-incisional erythema and no discharge from the incision. There is no significant swelling in the justyn- incisional area either. Neuro Neuro Narrative: Denies neuropathic pain today. Psych cooperative Psych Narrative: Worried today about having dementia and what her life will look like going forward. Denies feeling anxious or depressed however. Appearance: appropriate Attitude: No agitated Mood & Affect: Negative for depressed Weight / BMI Weight Weight: 226 lb 10.163 oz Body Mass Index (BMI) 41.7 ABG / Lab / Microbiology Data 01/16/24 17:05 01/16/24 15:40 Meaningful Use Info Meaningful Use Meaningful Use Diagnoses (Choose all that apply): None applicable Ischemic Stroke Statin Dosing Therapy Reference: STATIN DOSE THERAPY REFERENCE: * Patients > 75 years receive moderate or high dose statin therapy. * Patients 75 years or YOUNGER should receive HIGH intensity statin dose unless contraindicated. You will be required to document reason for non-treatment if statin daily dose does not meet guidelines. HIGH DOSE STATIN THERAPY DAILY Atorvastatin > than or = to 40 mg Rosuvastatin > than or = to 20 mg Amlodipine + Atorvastatin > than or = to 2.5/40 mg Ezetimibe + Simvastatin 10/80 mg Simvastatin 80mg Discharge Plan Admission Admit Date/Time: 01/09/24 14:19 Primary Reason for Your Visit: Debility due to lumbar stenosis/laminectomy and fusion. Attending Provider: Maureen Mata Primary Care Provider: Care Physician,No Primary Consulting Providers: Josh Sanchez Chi Discharge Orders/Prescriptions Prescriptions: New levothyroxine 175 mcg Tablet 175 mcg PO DAILY@0600 Qty: 1 0RF donepezil 5 mg Tablet 5 mg PO QHS Qty: 1 0RF sennosides-docusate sodium [Stimulant Laxative Plus] 8.6-50 mg Tablet 1 tab PO BID Qty: 1 0RF magnesium hydroxide 400 mg/5 mL Suspension 30 ml PO X1 PRN (Reason: Constipation) Qty: 30 0RF trazodone 100 mg Tablet 150 mg PO QHS Qty: 2 0RF bisacodyl 10 mg Suppository 10 mg NJ X1 PRN (Reason: Constipation) Qty: 1 0RF metoprolol succinate 25 mg tablet extended release 24 hr 25 mg PO QHS Qty: 30 0RF tramadol 50 mg tablet 50 mg PO Q6H PRN (Reason: pain) 7 Days Qty: 24 0RF Continued acetaminophen 500 mg Tablet 1,000 mg PO Q8 Qty: 0 0RF Discontinued hydrocodone-acetaminophen 5-325 mg Tablet 1 - 2 tab PO Q6H PRN PRN (Reason: Pain Score 1-10) Qty: 0 0RF heparin (porcine) 5,000 unit/mL Solution 5,000 unit subcut Q12 Qty: 0 0RF levothyroxine 200 mcg capsule 200 mcg PO DAILY hydrochlorothiazide 25 mg tablet 25 mg PO DAILY trazodone 100 mg tablet 200 mg PO QHS lisinopril 20 mg tablet 20 mg PO QHS No Action polyethylene glycol 3350 [Miralax] 17 gram/dose powder 17 g PO DAILY Qty: 119 0RF Referrals / Follow Up: Jak Cooper DO [Med Staff - Active Staff] - 01/27/24 1:30 pm Lauri Layne MD [Non-Staff] - 03/01/24 1:40 pm Ryne Jean MD [Med Staff - Courtesy Staff] - (referral faxed office will call for appointment ) oJsh Sanchez Chi, MD [Med Staff - Active Staff] - 01/24/24 2:20 pm Disposition Disposition (needs filled in before D/C Order can be placed): [facility] Facility Charges/Coding Visit Charges Inpatient E&M: 28197 Disch Hosp >30min
--- NOTE | 2024-01-23 14:14 | NURSING ---
report called to Candida @ [facility] at this time
== END 2024-01-23 13:24 | disposition skilled nursing facility (03) | DRG 454 ==
PROVIDERS: Admitting Provider Family Medicine Geriatric Medicine; Referring Provider Family Medicine Geriatric Medicine; Visit Provider Internal Medicine
DX: Z47.89 Encounter for other orthopedic aftercare (principal); Z68.41 Body mass index [BMI] 40.0-44.9, adult; D62 Acute posthemorrhagic anemia; F03.90 Unspecified dementia, unspecified severity, without behavioral disturbance, psychotic disturbance, mood disturbance, and anxiety; E03.9 Hypothyroidism, unspecified; I10 Essential (primary) hypertension; F32.A Depression, unspecified; E66.01 Morbid (severe) obesity due to excess calories; M48.061 Spinal stenosis, lumbar region without neurogenic claudication; F41.9 Anxiety disorder, unspecified; M48.07 Spinal stenosis, lumbosacral region; M51.17 Intervertebral disc disorders with radiculopathy, lumbosacral region; M47.27 Other spondylosis with radiculopathy, lumbosacral region; L30.4 Erythema intertrigo; Z87.891 Personal history of nicotine dependence; Z79.890 Hormone replacement therapy; Z79.899 Other long term (current) drug therapy; G47.00 Insomnia, unspecified; R73.01 Impaired fasting glucose; Z60.2 Problems related to living alone; Z98.1 Arthrodesis status; G89.29 Other chronic pain; R29.6 Repeated falls; R53.81 Other malaise
CPT/HCPCS: 36415; 71045; 71046; 72100; 76000; 80048; 80053; 80076; 81001; 82607; 82962; 83036; 83735; 84100; 84439; 84443; 85014; 85018; 85025; 85027; 85610; 85730; 86038; 86225; 86235; 86376; 86800; 87081; 92507; 92523; 93005; 94668; 94762; 96361; 96365; 96366; 96372; 97110; 97116; 97129; 97130; 97162; 97166; 97530; 97535; 97802; 97803; 99221; 99284; C1713; J7050; J7120; A4216; G0378; J2405; J3475

== ENCOUNTER → 2024-02-23 | Outpatient (CLI) | payer MEDICARE, OTHER, SELFPAY ==
[2024-02-23 16:24] LABS: Absolute Lymphocyte Count 1.95 X10^3/uL (0.83-4.51); Absolute Neutrophil Count 7.5 X10^3/uL (2.0-7.7); Basophil# 0.07 X10^3/uL; Basophil% 0.7 % (0-1); Eosinophil# 0.25 X10^3/uL; Eosinophils% 2.3 % (0-5); Hematocrit 35.1 % (37-47); Hemoglobin 10.8 g/dL (12.0-15.0); Lymphocyte # 1.95 X10^3/ul (0.83-4.51); Lymphocyte % 18.1 % (19-41); Mean Corp Hgb Conc 30.8 g/dL (32-36); Mean Corpuscular Hgb 29.1 pg (27.0-32.0); Mean Corpuscular Volume 94.6 fL (81-99); Mean Platelet Vol. 9.2 fl (6.2-12.0); Monocyte% 8.4 % (0-10); NRBC Flagged by Analyzer 0 % (0-5); Neutrophil # 7.53 X10^3/uL (2.7-7.7); Platelet Count 367 K/mm3 (150-450); RBC Distribution Width CV 13.7 % (11.6-14.6); RBC Distribution Width SD 47.6 fl (35.1-43.9); Red Blood Count 3.71 M/mm3 (4.2-5.4); White Blood Count 10.8 K/mm3 (4.4-11.0)
[2024-02-23 16:51] LABS: ALB/GLOB Ratio 0.8 RATIO (0.9-2.4); AST(SGOT) 15 U/L (15-37); Alanine Aminotransfer ALT/SGPT 18 U/L (13-56); Albumin, Serum 3.5 g/dL (3.2-5.0); Alkaline Phosphatase 119 U/L (45-117); Anion Gap 8 (5-15); BUN 16 mg/dL (7-18); BUN/Creat Ratio 18.2 RATIO (10-20); Calcium,Total 9.5 mg/dL (8.5-10.1); Chloride 107 mmol/L (98-107); Creatinine, Serum 0.88 mg/dL (0.55-1.02); EST Glomerular Filtration Rate 67 mL/min (>60); Est Glom Filt Rate - Afr Amer 82 mL/min (>60); Globulin 4.2 g/dL (2.2-4.2); Glucose 114 mg/dL (74-106); Protein, Total 7.7 g/dL (6.4-8.2); Sodium Level 143 mmol/L (136-145); Thyroid Stim Hormone (TSH) 0.043 uIU/mL (0.358-3.740)
[2024-02-24 16:01] LABS: Hepatitis C Antibody Non-Reactive (Nonreactive); Vitamin D,25 Hydroxy 28.1 ng/mL
== END | disposition home or self-care (01) ==
LOC: POLAB3 16:10
PROVIDERS: PCP Family Medicine Geriatric Medicine; Visit Provider Family Medicine Geriatric Medicine
DX: Z13.89 Encounter for screening for other disorder (principal); I10 Essential (primary) hypertension; E55.9 Vitamin D deficiency, unspecified; E03.9 Hypothyroidism, unspecified
CPT/HCPCS: 36415; 80053; 82306; 84443; 85025; 86803

== ENCOUNTER → 2024-03-27 | Outpatient (CLI) | payer MEDICARE, OTHER, SELFPAY ==
--- NOTE | 2024-03-27 12:50 | CT_ITS ---
STUDY: LOW DOSE CT LUNG CANCER SCREENING REASON FOR EXAM: Female, 74 years old. SCREEN Quit smoking 7 years ago, smoked 1.5ppd x 46 years. RADIATION DOSAGE (If Supplied By Facility): CTDIvol = ( 4.02 ) mGy, DLP = ( 117.32 ) mGycm TECHNIQUE: No contrast was administered. Low dose technique was utilized (average mAS-38 and kVp 120). 1.25 mm axial source images with a slice interval of 1.25-mm were reconstructed in lung windows. 2.5 mm axial source images with a slice interval of 2.5-mm were reconstructed in lung windows. 5.0 mm axial source images with a slice interval of 5.0-mm were reconstructed in soft tissue windows. Nodule measured using lung windows on PACS and/or independent workstation with automated measurement of minimum and maximum diameter. Nodule measurement reported as average diameter rounded to the nearest whole number. Growth is defined as an increase ins size of greater than 1.5 mm. COMPARISON: Chest x-ray dated January 08, 2024 FINDINGS: Total lung nodules (excluding granulomas): None Emphysema: Mild Endobronchial lesion: None present Aorta: No aneurysmal dilatation Coronary arteries: Mild LAD calcifications are present Heart: Normal heart size Pulmonary artery: Unremarkable Mediastinal nodes: None present There are interstitial fibrotic changes of the lungs. There is no demonstrated pleural abnormality. No pneumonic consolidation is present. Normal mediastinum. Normal hilar regions. Normal unenhanced pulmonary arteries. Normal aorta arch and descending thoracic aorta. There are multi-level degenerative changes of the thoracic spine. CT/Low Dose CT Lung Screening IMPRESSION: 1. Mild emphysematous and interstitial fibrotic changes of the lungs 2. Lung-RADS category 2 - Continue annual screening with LDCT in 12 months. IMPORTANT NOTES FOR USE: ACR Lung-RADS Version 1.0 Assessment Categories Release Date: 2021 Classification system Category 0 (Incomplete)- prior CT studies were performed but are not available, lungs incompletely imaged, findings suggest inflammation or infection Category 1 (negative, <1% chance of malignancy) (no lung nodules/lung nodule(s) with specific findings favoring benign nodule(s)) Category 2 (benign appearance or behavior, <1% chance of malignancy) juxtapleural nodule <10mm mean diameter at baseline OR new and smooth, solid, oval, lentiform, or triangular Category 3 nodules that are stable or decreased at 6 months Category 3 (probably benign, 1-2% chance of malignancy) solid nodule(s)(between 6 and 8 mm at baseline; new nodule between 4 mm and 6 mm) Category 4A lesion, stable or decreased in size at 3-month follow-up (excluding airway nodules) Category 4A (suspicious, 5-15% chance of malignancy) (version 1.1 change previously suspicious) solid nodule(s) (?8 mm to <15 mm at baseline or growing nodule(s) <8 mm) Category 4B (very suspicious, >15% chance of malignancy) stable or growing airway nodule, segmental or more proximal (solid nodule(s) ? 15 mm at baseline or new or growing, and ?8 mm) Category 4X (very suspicious, >15% chance of malignancy) category 3 or 4 nodules with additional features or imaging findings that increase the suspicion of malignancy Modified categories [X]S (e.g. 3S) if there is a clinically significant or potentially significant non-lung cancer finding Electronically Signed: Juancarlos Danielle MD at 20:20 EDT Reading Location ID and State: [address] [place] [address] , Service support ,
== END | disposition home or self-care (01) ==
LOC: CT 12:49
PROVIDERS: PCP Family Medicine Geriatric Medicine; Referring Provider Family Medicine Geriatric Medicine; Visit Provider Family Medicine Geriatric Medicine
DX: Z00.00 Encounter for general adult medical examination without abnormal findings (principal); Z87.891 Personal history of nicotine dependence
CPT/HCPCS: 71271

== ENCOUNTER 2024-04-26 17:30 | Outpatient (RCR) | payer MEDICARE, OTHER, SELFPAY ==
--- NOTE | 2024-04-10 18:42 | HP.PTEVAL_ITS ---
Patient's Visit Information Visit Information Visit Information: MERARY CAT is a 74 year old F referred to Physical Therapy by Dr. Josh Sanchez MD with a diagnosis of gait difficulty. Date of Evaluation: 04/10/24 Physical Therapist: Jeremy Alfaro, DPT, OCS, CSCS Visit Plan Frequency: 2x /Week Duration: 4-6 Weeks Plan: 2x/week for 4-6 weeks : IE HEP frequent short walks 200 feet with wh walker, lie in b3ed scoot from side to side 2-3 x using legs and sit up daily.Wh walker 100% of time In clinic please work on 1. LE adn trunk strengthening program she can eventually do at home standing 2. Gait training for confidence and volume, use cane in clinic , work on weight shifts for turning and large steps and confident with funcitonal ambulation Care taken with knee arthritis Subjective Subjective: Spinal fusiion in December due to back pain, was able to walk prior to with just a cane and only difficult due to back pain. Son says since then she just forgot how to walk. Needs wh walker and shuffles. Was in rehab for 2 weeks then [facility] where she did not get a lot of therapy and has not walked well since. dr. Sanchez thinks maybe early sign of Parkinsons but wants to try rehab first. Will see MRI and see neurology Dr. gibson for walking and memory. he will investigate with MRI and blood work. last spring was in a lot of pain and could drive and walk without cane and only limited by pain. Surgery did take care of back pain. Live alone now and walker to get around and cane sometimes but has fallen and fell one time with the walker. Ran into hamper , son says her gait goes L. Dresses self, bathroom self, step over tub but it is hard. avoids it sometimes but has rail. Has chair. No stairs. Has lived here since September and does nothing but watches TV. Would like to get in pool for ex. Has a cat. Wanted to go to [employer] prior to these problems. B knee pain and degeneration Objective Objective: Ambulates back to PT with wh walker mod I but listing L until verbally cued, after 100 feet start to take short shuffling steps until cued, Fearful in gait to shift wieght. lazily stops early near chair avoiding moving legs and throwing hips toward chair to sit I. Sit to supine fall flat and needing cues to bend knees and car pick up driver hips to shift to center but can do it I. Does not move alot when sitting and can scoot back but does not until cued. Supine to sit I straight up. able to ambulate with CGA for confidence [facility] taking short shuffling steps to turn. Cane is SBA, acks confidence to do this without therapist next to her. LB AROM is WFL, very weak in core 3/5 but no pain. LE AROM is WFL with hips to neutral ext and 10 abduction and 90 flexion but limited actively due to weakness and overweight. knees are painful to resist ext L >R and AROM end range ext limited on L, strength is 3+/5 ext and 4- flexion, ankles are 4-/5 in all directions, R foot slightly weaker in eversion. Sensation to gross light touch is WNL B in LE. Sensation wNL to gross light touch in LE. Requires UE to get out of chair due to weakness and poor confidence. Balance/Special Test Scores Functional Gait Assessment Score: 15 % Disability: 50.0000 Lower Extremity Functional Score: 20 TUG Test Time Seconds: 28 30 Second Chair Rise Test Seconds: 4 Goals Goal 1:: sleep in bed t night with cat rather than on couch. Goal Time Frame: 4-6 Weeks Goal 2:: I appropriate HEP to limit future problems Goal Time Frame: 4-6 Weeks Goal 3:: Walk into and out of PT with cane with 23/30 FGA Goal Time Frame: 4-6 Weeks Goal 4:: Pt and son feel 75% improved in overall activity Goal Time Frame: 4-6 Weeks Goal 5:: 10 on 30 SSTS and 14 or better on TUG Goal Time Frame: 4-6 Weeks Rehabilitation Potential Physical Therapy Diagnosis: weakness, sedentarism since surgery limiting fucntional ambulation Rehabilitation Potential: Fair Anticipated Interventions Patient/Client Instruction: Educate patient on: Condition, Plan of Care and Risk Factors For the Purpose of:: To increase ROM, To improve nutrient delivery to tissue, To increase oxygenation perfusion, To increase tolerance to activity/condition/position, To improve ability of physical actions for home/community/work/leisure and To improve gait and locomotor functions Therapeutic Exercise to Include: Strength training, Balance training, Flexibilty training, Active ROM and Dynamic Lumbar Stabilization For the Purpose of:: To improve nutrient delivery to tissue, To increase oxygenation perfusion, To improve muscle performance and motor function, To improve performance and independence with ADL's, To decrease level of supervision to perform tasks and To improve gait and locomotor functions Text: Thank you for the opportunity to evaluate your patient. For Medicare and Medicare HMO plans, please review the plan of care and approve it. It will need to be FAXED BACK to us at [phone] for Medicare purposes. For Medicare only, by signing this I certify the plan of care. Please let me know if there are questions or concerns regarding this plan of care. Physician Signature: Date:
--- NOTE | 2024-06-25 09:27 | HP.PT.NRP ---
Patient Information Patient Information: MERARY CAT was seen in my office for initial evaluation on 04/10/24. The following Plan of Care was established for this patient: POC Established Initial Frequency: 2x /Week Initial Duration: 4-6 Weeks Anticipated Interventions Patient/Client Instruction: Educate patient on: Condition, Plan of Care and Risk Factors For the Purpose of:: To increase ROM, To improve nutrient delivery to tissue, To increase oxygenation perfusion, To increase tolerance to activity/condition/position, To improve ability of physical actions for home/community/work/leisure and To improve gait and locomotor functions Therapeutic Exercise to Include: Strength training, Balance training, Flexibilty training, Active ROM and Dynamic Lumbar Stabilization For the Purpose of:: To improve nutrient delivery to tissue, To increase oxygenation perfusion, To improve muscle performance and motor function, To improve performance and independence with ADL's, To decrease level of supervision to perform tasks and To improve gait and locomotor functions Last Seen Last Seen: This patient was last seen in our office 04/26/24. Pertinent comments regarding their Physical therapy will appear below: Pt seen for 6 visits for gait instability but cancelled the remaining possibly due to hospital visits. At this point, it has been almost 2 months and I will discontinue due to nonattendance. At this point I will be discontinuing this patient from physical therapy. I would be happy to see this patient again in the future if found appropriate by the physician. Thank you! Jeremy Alfaro, DPT, OCS, CSCS Balance/Gait/Functional tests Balance/Special Test Scores Functional Gait Assessment Score: 15 % Disability: 50.0000 Lower Extremity Functional Score: 20 TUG Test Time Seconds: 28 Tug Test: 20-30sec.=variable mobility 30 Second Chair Rise Test Seconds: 4
== END 2024-04-26 19:00 | disposition home or self-care (01) ==
LOC: PT 17:30
PROVIDERS: PCP Family Medicine Geriatric Medicine; Referring Provider Family Medicine Geriatric Medicine; Visit Provider Family Medicine Geriatric Medicine
DX: R26.89 Other abnormalities of gait and mobility (principal)
CPT/HCPCS: 97110; 97162

== ENCOUNTER 2024-04-29 17:49 | Inpatient (IN) | payer MEDICARE, OTHER, SELFPAY ==
[2024-04-29 17:50] VITALS: BP 149/87; PULSE 101; RESP 18; TEMP 36.7; O2SAT 93
[2024-04-29 18:00] VITALS: BMI 38.3
--- NOTE | 2024-04-29 18:44 | CT_ITS ---
STUDY: CT BRAIN WITHOUT CONTRAST REASON FOR EXAM: Female, 74 years old. falls, confusion Individualized dose optimization techniques were used for this CT. TECHNIQUE: Transaxial CT imaging of the brain was performed without administration of intravenous contrast material. COMPARISON: None FINDINGS: There are calcifications noted in the distal vertebral arteries. There are calcifications noted in the cavernous carotid arteries. This is consistent for atherosclerotic disease. Normal calvarium. Normal soft tissues. There is mild cerebral atrophy with widening of the extra-axial spaces and ventricular dilatation. There are areas of decreased attenuation within the white matter tracts of the supratentorial brain, consistent with microvascular disease changes. Normal basal ganglia and thalami. Normal brainstem. There is mild cerebellar atrophy. There is no intracranial hemorrhage. There are no findings of an acute ischemic infarction. Normal visualized paranasal sinuses. ASPECTS Score for Acute Strokes: 03/22 CT/Brain/Head without Contrast IMPRESSION: There are no acute findings. Chronic involutional changes of the brain. Electronically Signed: Des Leger MD at 19:40 EST ,
--- NOTE | 2024-04-29 18:45 | EKG12_ITS ---
Test Reason : DYSRHYTHMIA Blood Pressure : */* mmHG Vent. Rate : 72 BPM Atrial Rate : 72 BPM P-R Int : 126 ms QRS Dur : 86 ms QT Int : 414 ms P-R-T Axes : 1 -13 -5 degrees QTcB Int : 453 ms Normal sinus rhythm Nonspecific T wave abnormality Abnormal ECG Confirmed by ZAIDA FISCHER, ELO ([id number]), editorial writer GUIDO ALEXANDER ([id number]) on 04/30/2024 9:55:13 AM Referred By: Confirmed By: ELO CERDA MD
[2024-04-29 18:55] LABS: Absolute Lymphocyte Count 1.15 X10^3/uL (0.83-4.51); Basophil# 0.06 X10^3/uL; Basophil% 0.5 % (0-1); Eosinophil# 0.08 X10^3/uL; Eosinophils% 0.6 % (0-5); Hematocrit 36.7 % (37-47); Lymphocyte # 1.15 X10^3/ul (0.83-4.51); Lymphocyte % 8.7 % (19-41); Mean Corp Hgb Conc 32.7 g/dL (32-36); Mean Corpuscular Hgb 28.2 pg (27.0-32.0); Mean Corpuscular Volume 86.4 fL (81-99); Mean Platelet Vol. 9.7 fl (6.2-12.0); Monocyte# 0.92 X10^3/uL; Monocyte% 6.9 % (0-10); NRBC Flagged by Analyzer 0 % (0-5); Neutrophil # 10.97 X10^3/uL (2.7-7.7); Neutrophil % 82.8 % (47-70); Platelet Count 321 K/mm3 (150-450); RBC Distribution Width CV 14.6 % (11.6-14.6); RBC Distribution Width SD 46.2 fl (35.1-43.9); Red Blood Count 4.25 M/mm3 (4.2-5.4); White Blood Count 13.3 K/mm3 (4.4-11.0)
[2024-04-29 19:04] LABS: Color, Urine Straw (Yellow); Glucose, Dipstick Normal (Normal); Ketone-Dipstick 50 mg/dl (Negative); Leukocyte Esterase-Dipstick 25 /ul (Negative); Nitrite-Dipstick Negative (Negative); Occult Blood-Urine 25 /ul (Negative); Protein-Dipstick 100 mg/dl (Negative); Urine Clarity Sl. Cloudy (Clear); Urine Urobilinogen 4 mg/dl (Normal)
[2024-04-29 19:06] LABS: Urine Bilirubin Dipstick 3 mg/dL (Negative)
[2024-04-29 19:09] LABS: D-Dimer Quantitative (DVT/PE) 3.74 FEU/ug/m (0.27-0.49)
--- NOTE | 2024-04-29 19:09 | RAD_ITS ---
EXAM: XR CHEST, 1 VIEW CLINICAL INDICATION: weakness TECHNIQUE: Frontal view of the chest. COMPARISON: 01.08.24 FINDINGS: LUNGS AND PLEURAL SPACES: Unremarkable. No consolidation or edema. No pneumothorax. No effusion. HEART: Unremarkable. Cardiac silhouette not enlarged. MEDIASTINUM: Central airways and mediastinal contour are unremarkable. BONES/JOINTS: Unremarkable. No acute fracture. SOFT TISSUES: Unremarkable. RAD/Chest 1 View (Portable) IMPRESSION: No radiographic evidence of acute cardiopulmonary disease. Electronically Signed: Des Leger MD at 19:39 EST ,
[2024-04-29 19:14] LABS: Alcohol, Blood (Medical)-Serum < 3.0 mg/dL
--- NOTE | 2024-04-29 19:14 | EX.ED.DYSGE1 ---
HPI History of Present Illness Chief Complaint: Fall Informant: patient and family Narrative Narrative: Patient is 74-year-old female presenting from home with son for concern of worsening weakness as well as confusion. Patient had back surgery back in December with Dr. Cooper. She was discharged home after spinal fusion but it was not able to function at home and had to come back to the hospital the next day. She ultimately is admitted to the TCU for 3 weeks and then was at [facility]. She is been home for about 5 weeks. Son states that when she got home she was doing pretty good and was using a cane. She does live home independently. Over the past 5 weeks she has slowly gotten weaker and had multiple falls. She has gone from using a cane to a walker to a rollator and now she can hardly stand up. She has had at least 3 falls this week where the sons had to go to her house to pick her up off the ground. She is now also concerned confused over the past week. She seems more short of breath with any type of exertion even trying to stand up. Today she did not know how she got her pants on or where they came from. She is scheduled to have an MRI ordered by neurology at [facility] tomorrow for this progression of confusion. Family states there is some concern of possible dementia versus Parkinson's. In addition patient cannot seem to control her legs. Her left leg does not move when she tells it to. Patient denies any bowel or bladder incontinence. Denies any saddle anesthesia. Patient denies any pain in her back or her legs. Denies any numbness to her legs. [facility] Medical History Increased urinary frequency Morbid obesity Depression Essential (primary) hypertension Lumbar stenosis Insomnia Hypothyroidism Post-menopausal Anxiety Thyroid disease Ambulates with cane Arthritis Easy bruising Injury of back Back pain Fall Loss of consciousness Hoarseness Former smoker History of pain when walking Hypertension Home Medications ?Medication ?Instructions ?Recorded ?Last Taken ?Type levothyroxine 175 mcg tablet 175 mcg PO DAILY@0600 #1 TAB 01/23/24 Unknown Rx trazodone 100 mg tablet 150 mg (1.5 x 100 mg) PO QHS #2 01/23/24 Unknown Rx tabs Allergy/AdvReac Type Severity Reaction Status Date / Time Penicillins Allergy Intermediate Hives Verified 04/29/24 17:49 Family History (Updated 04/29/24 @ 21:[address] Orly Maradiaga MD) Father Alcohol abuse Mother No problems noted. Family History no significant family his Surgical History History of lumbosacral spine surgery Hx of tubal ligation Hx of total knee replacement Social History household members: children and other details: Son lives with her. Smoking Status: Former smoker alcohol intake: never substance use type: does not use ROS ROS ED Constitutional Constitutional ED: Denies chills or fever(s) Eyes Eyes: Denies change in vision Cardiovascular Cardiovascular: Denies chest pain Respiratory/Chest Respiratory/Chest: Reports dyspnea and dyspnea on exertion; Denies cough or sputum Gastrointestinal Gastrointestinal: Denies abdominal pain, diarrhea, nausea or vomiting Genitourinary Genitourinary ED: Denies dysuria, hematuria or urinary frequency Musculoskeletal Musculoskeletal: Denies arthralgias or myalgias Integumentary Denies rash Neurologic Neurologic: Reports weakness; Denies headache(s) or paresthesias Hematologic/Lymphatic Hematologic/Lymphatic: Denies easy bleeding or easy bruising EXAM Physical Exam Const Vital Signs: 04/29/24 17:50 04/29/24 18:19 04/29/24 18:19 Temperature 98.1 F Temperature Source Temporal Pulse Rate 101 H Respiratory Rate 18 Respiratory Effort Normal Non-Labored Normal Non-Labored Respiratory Depth Normal Respiratory Pattern Normal Normal Blood Pressure 149/87 H Blood Pressure Mean 107 Pulse Ox 93 Oxygen Delivery Method Room Air Room Air 04/29/24 19:49 04/29/24 20:39 Temperature 98.2 F Temperature Source Pulse Rate 79 70 Respiratory Rate 25 H 18 Respiratory Effort Respiratory Depth Respiratory Pattern Blood Pressure 163/85 H 134/100 H Blood Pressure Mean 111 111 Pulse Ox 96 97 Oxygen Delivery Method Room Air Positive well nourished and well developed General Appearance ED: well developed and NAD HEENT Reports moist mucous membranes Eyes PERRL Neck supple and no JVD Chest Wall inspection of chest normal and palpation of chest normal Resp normal respiratory effort and clear to auscultation bilaterally Cardio regular rhythm and no murmurs Rate: tachycardic GI normal to inspection, nondistended, normoactive bowel sounds and non-tender Back/Spine Cervical Spine: Negative for cervical spine tenderness Thoracic Spine / Upper Back: Negative for thoracic spinal tenderness Lumbar Spine / Lower Back: Negative for lumbar spinal tenderness Extremity normal to inspection General Extremety ED: Negative for edema or tenderness General Extremity: Negative for edema Neuro Neuro Narrative: No focal deficits appreciated. No drift of the extremities appreciated. Sensation intact in all dermatomes. Sensorium / Orientation: alert Psych mental status grossly normal Skin no rashes or lesions noted and no wounds MDM MDM MDM Narrative Medical decision making narrative: Patient evaluated for generalized weakness, increase of to exertion and multiple falls. Patient is home alone at this point patient family do not feel that she is safe to be at home. She has been declining over the past month or so it sounds like. She is also now been more confused and seemingly more weak over the past 5 days to 1 week. Differential includes intracranial hemorrhage, infection, encephalopathy, electrolyte abnormality, pulmonary emboli, ACS, pneumonia as well as stroke. Workup does show leukocytosis of 13.3. BMP shows a significant hypokalemia with potassium 2.7. Magnesium is added on however this is normal. Liver panel is normal. Urinalysis not consistent with urinary tract infection. Alcohol is negative. Urine tox is positive for MDMA but I suspect this is cross-reactivity from one of her other medications. CT of the brain does not show any acute process. EKG does not show any acute ischemic changes. Chest x-ray viewed by myself as well as radiology does not show any acute process. D-dimer is significantly elevated so CTA is added on. Patient does have aneurysmal dilation of the ascending thoracic aorta but no acute processes noted. Patient started on potassium supplementation in the ER. Given her multiple falls, mental status change and significant difficulty with ambulation will be admitted for further workup. Case discussed with admitting physician, hospitalist Dr. Maradiaga. Patient and family are agreeable with this plan of care. Lab Data Labs: Laboratory Results - last 24 hr 04/29/24 04/29/24 04/29/24 18:16 18:50 18:55 WBC 13.3 H RBC 4.25 Hgb 12.0 Hct 36.7 L MCV 86.4 MCH 28.2 MCHC 32.7 RDW Std Deviation 46.2 H RDW Coeff of Radha 14.6 Plt Count 321 MPV 9.7 Immature Gran % (Auto) 0.500 Neut % (Auto) 82.8 H Lymph % (Auto) 8.7 L [place] % (Auto) 6.9 Eos % (Auto) 0.6 Baso % (Auto) 0.5 Absolute Neuts (auto) 11.0 H Absolute Lymphs (auto) 1.15 Nucleated RBC % 0 D-Dimer Quant (PE/DVT) 3.74 H* Sodium 140 Potassium 2.7 L* Chloride 106 Carbon Dioxide 26.0 Anion Gap 8 BUN 13 Creatinine 0.92 Estim Creat Clear Calc 59.46 Est GFR (MDRD) Af Amer 77 Est GFR (MDRD) Non-Af 64 BUN/Creatinine Ratio 14.1 Glucose 178 H Calcium 8.9 Magnesium 1.7 Total Bilirubin 0.70 AST 24 ALT 19 Alkaline Phosphatase 102 Total Creatine Kinase 572 H B-Natriuretic Peptide 28.8 Total Protein 7.4 Albumin 3.6 Globulin 3.8 Albumin/Globulin Ratio 0.9 Urine Color Straw Urine Clarity Sl. Cloudy Urine pH 5.0 Ur Specific [place] 1.030 Urine Protein 100 H Urine Glucose (UA) Normal Urine Ketones 50 H Urine Occult Blood 25 H Urine Nitrite Negative Urine Bilirubin 3 H Urine Urobilinogen 4 H Ur Leukocyte Esterase 25 H Urine Opiates Screen NEGATIVE Urine Methadone Screen NEGATIVE Ur Barbiturates Screen NEGATIVE Ur Phencyclidine Scrn NEGATIVE Ur Amphetamines Screen NEGATIVE MDMA (Ecstasy) Screen POSITIVE H U Benzodiazepines Scrn NEGATIVE Urine Cocaine Screen NEGATIVE U Cannabinoids Screen NEGATIVE Ur Drug Screen Comment Ethyl Alcohol < 3.0 Radiography Diagnostic Testing: Clinical Impression(s) from Imaging Studies Brain CT 04/29/24 18:44 IMPRESSION: There are no acute findings. Chronic involutional changes of the brain. Electronically Signed: Des Leger MD at 19:40 EST , Chest X-Ray 04/29/24 19:09 IMPRESSION: No radiographic evidence of acute cardiopulmonary disease. Electronically Signed: Des Leger MD at 19:39 EST , Chest CTA 04/29/24 19:17 IMPRESSION: No demonstrated pulmonary embolism or arterial dissection. 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 Electronically Signed: Des Leger MD at 20:11 EST Reading Location ID and State: [facility] / [place] , Service support , Rhythm Strip Rhythm Strip: Sinus Rhythm Rate: 72 Ectopy: None EKG Initial EKG: Attestation: I personally reviewed and interpreted this EKG as follows: Interpretation: Sinus Rhythm Comments: Normal sinus rhythm rate of 72 bpm Normal axis Normal intervals Nonspecific T wave abnormalities Management Discussion w/another healthcare provider: Hospitalist Discharge Plan Dx/Rx/DC Orders Clinical Impression: Debility, Falls frequently, Confusion, Hypokalemia Disposition Disposition: Acute Care Hospital [facility] Discharge Date/Time: 04/29/24 21:18
--- NOTE | 2024-04-29 19:17 | CT_ITS ---
STUDY: CTA Chest WO/W Contrast Injection 04/29/2024 8:08 PM REASON FOR EXAM: Female, 74 years old. sob, elevated dimer, concern for PE TECHNIQUE: The examination was performed with the intravenous administration of IV 100mL Isovue-370 contrast material. Post-processing of the angiographic images was performed, with axial imaging and 3D reconstruction. MIPS images were obtained. Individualized dose optimization techniques were used for this CT. COMPARISON: 03.27.24 FINDINGS: There are degenerative changes of the shoulders. There is no pneumothorax. There is no demonstrated pleural abnormality. Pulmonary emphysema. Normal heart and pericardium with no evidence for calcifications of the coronary arteries. Normal mediastinum. Normal hilar regions. Normal pulmonary arteries. Normal aorta arch and descending thoracic aorta. There is aneurysmal dilatation of the ascending aorta. The transverse diameter of the ascending aorta measures (in mm): 41. There are multi-level degenerative changes of the thoracic spine. There are no acute findings of the upper abdomen. CT/CTA Chest W/WO Contrast IMPRESSION: No demonstrated pulmonary embolism or arterial dissection. 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 Electronically Signed: Des Leger MD at 20:11 [facility] ,
[2024-04-29 19:20] LABS: ALB/GLOB Ratio 0.9 RATIO (0.9-2.4); AST(SGOT) 24 U/L (15-37); Alanine Aminotransfer ALT/SGPT 19 U/L (13-56); Albumin, Serum 3.6 g/dL (3.2-5.0); Alkaline Phosphatase 102 U/L (45-117); Anion Gap 8 (5-15); BUN 13 mg/dL (7-18); BUN/Creat Ratio 14.1 RATIO (10-20); Calcium,Total 8.9 mg/dL (8.5-10.1); Chloride 106 mmol/L (98-107); Creatinine, Serum 0.92 mg/dL (0.55-1.02); EST Glomerular Filtration Rate 64 mL/min (>60); Est Glom Filt Rate - Afr Amer 77 mL/min (>60); Estimated Creatinine Clearance 59.46 ml/min; Globulin 3.8 g/dL (2.2-4.2); Glucose 178 mg/dL (74-106); Potassium 2.7 mmol/L (3.5-5.1); Protein, Total 7.4 g/dL (6.4-8.2); Sodium Level 140 mmol/L (136-145)
[2024-04-29 19:22] LABS: Amphetamine Urine VISTA NEGATIVE (<1000 ng/mL); Barbiturate Urine VISTA NEGATIVE (< 200 ng/mL); Benzodiazepine Urine VISTA NEGATIVE (< 200 ng/mL); Cocaine Urine VISTA NEGATIVE (< 300 ng/mL); Ecstacy Urine VISTA POSITIVE (< 500 ng/mL); Methadone Urine VISTA NEGATIVE (< 300 ng/mL); PCP Urine VISTA NEGATIVE (< 25 ng/mL); THC Urine VISTA NEGATIVE (< 50 ng/mL); Vista UDS pH Range 4
[2024-04-29 19:40] LABS: BNP,B-Type NATRIURETIC PEPTIDE 28.8 pg/mL (0-100)
[2024-04-29 19:41] LABS: CPK Total, Creatine Kinase 572 U/L (26-192); Magnesium 1.7 mg/dL (1.6-2.6)
[2024-04-29 19:49] VITALS: BP 163/85; PULSE 79; RESP 25; O2SAT 96
[2024-04-29] MEDS: Potassium Chloride 10mEq/100mL 10 MEQ/100 ML IV.SOLN. 100 MEQ IV BOLUS ×2 (20:12→21:12)
[2024-04-29] MEDS: Potassium Chloride Oral Soln 20 MEQ/15 ML UDC 40 MEQ PO (20:12)
[2024-04-29] MEDS: 0.9% Normal Saline (1000mL) 1,000 ML 150 ML IV (20:13)
--- NOTE | 2024-04-29 20:35 | PCM.HP.STD ---
HPI - General General Date of Admission: 04/29/24 Date of Service: 04/29/24 Chief Complaint: Weakness, debility, falls, cognitive decline. HPI Narrative The patient is a 74 y/o F w/ PMHx: Obesity, HTN, HLD, Anxiety and Depression, Chronic insomnia, Former tobacco use who presents to the [facility] ED on 04/29/2024 with worsening weakness, debility and confusion per family concern with back surgery reportedly in December discharged home after spinal fusion however she was unable to function and ultimately needed TCU transition for 3 weeks and then skilled at [facility] with return to home only over the last 5 weeks initially doing well using a cane but over the last 5 weeks she has had a steady decline with increasing weakness and multiple falls hardly able to stand up with also noted shortness of breath, worse with exertion as well as confusion prompting family to bring her in for ED evaluation. She reportedly was scheduled for an MRI by neurology at the [facility] on Tuesday with some concern for possible dementia versus Parkinson's disease. Patient also reports difficulty with especially left lower extremity movement but no bowel or bladder incontinence or any saddle anesthesias or paresthesias or radicular pain. Workup in the ED included T98.1, heart rate 101, BP 149/87, respirate rate 18, 93% on room air, CBC with WBC 13.3, hemoglobin 12, platelet 321 with left shift, D-dimer 3.74, CMP with potassium 2.7, glucose 178, total creatinine kinase 572 otherwise hepatic profile not marked appearing, BNP 28.8, magnesium 1.7, urinalysis noted be cloudy, protein 100, ketone 50, occult blood 25, negative nitrite, leukocyte Estrace 25, UDS with positive MDMA, ethyl alcohol less than 3, CT of the brain with chronic involutional changes, chest x-ray with no acute cardiopulmonary findings, SARS COVID/influenza/RSV PCR negative, follow-up CTPA with no demonstrated PE or arterial dissection with a 41 mm aneurysmal dilatation of the ascending thoracic aorta, EKG with SR with nonspecific changes with no acute evidence of ichemia. In the ED patient ministered maintenance IV fluids up to 1 L, potassium 40 mill equivalent p.o. x 1 in addition to 20 mill equivalent IV. [facility] Medical History Increased urinary frequency Morbid obesity Depression Essential (primary) hypertension Lumbar stenosis Insomnia Hypothyroidism Post-menopausal Anxiety Thyroid disease Ambulates with cane Arthritis Easy bruising Injury of back Back pain Fall Loss of consciousness Hoarseness Former smoker History of pain when walking Hypertension Home Medications ?Medication ?Instructions ?Recorded ?Last Taken ?Type levothyroxine 175 mcg tablet 175 mcg PO DAILY@0600 #1 TAB 01/23/24 Unknown Rx trazodone 100 mg tablet 150 mg (1.5 x 100 mg) PO QHS #2 01/23/24 Unknown Rx tabs Allergy/AdvReac Type Severity Reaction Status Date / Time Penicillins Allergy Intermediate Hives Verified 04/29/24 17:49 Family History (Updated 04/29/24 @ 21:[address] Orly Maradiaga MD) Father Alcohol abuse Mother No problems noted. Family History no significant family his Surgical History History of lumbosacral spine surgery Hx of tubal ligation Hx of total knee replacement Social History household members: children and other details: Son lives with her. Smoking Status: Former smoker alcohol intake: never substance use type: does not use Vital Signs Vital Signs Vital Signs: 04/29/24 17:50 04/29/24 18:19 04/29/24 18:19 Temperature 98.1 F Temperature Source Temporal Pulse Rate 101 H Respiratory Rate 18 Respiratory Effort Normal Non-Labored Normal Non-Labored Respiratory Depth Normal Respiratory Pattern Normal Normal Blood Pressure 149/87 H Blood Pressure Mean 107 Pulse Ox 93 Oxygen Delivery Method Room Air Room Air 04/29/24 19:49 Temperature Temperature Source Pulse Rate 79 Respiratory Rate 25 H Respiratory Effort Respiratory Depth Respiratory Pattern Blood Pressure 163/85 H Blood Pressure Mean 111 Pulse Ox 96 Oxygen Delivery Method Room Air Weight Weight: 209 lb 14.081 oz Body Mass Index (BMI) 38.3 Results Lab / Micro Data 04/29/24 18:16 04/29/24 18:16 Labs: Laboratory Results - last 24 hr 04/29/24 18:16: WBC 13.3 H, RBC 4.25, Hgb 12.0, Hct 36.7 L, MCV 86.4, MCH 28.2, MCHC 32.7, RDW Std Deviation 46.2 H, RDW Coeff of Radha 14.6, Plt Count 321, MPV 9.7, Immature Gran % (Auto) 0.500, Neut % (Auto) 82.8 H, Lymph % (Auto) 8.7 L, [place] % (Auto) 6.9, Eos % (Auto) 0.6, Baso % (Auto) 0.5, Absolute Neuts (auto) 11.0 H, Absolute Lymphs (auto) 1.15, Nucleated RBC % 0, D-Dimer Quant (PE/DVT) 3.74 H*, Sodium 140, Potassium 2.7 L*, Chloride 106, Carbon Dioxide 26.0, Anion Gap 8, BUN 13, Creatinine 0.92, Estim Creat Clear Calc 59.46, Est GFR (MDRD) Af Amer 77, Est GFR (MDRD) Non-Af 64, BUN/Creatinine Ratio 14.1, Glucose 178 H, Calcium 8.9, Magnesium 1.7, Total Bilirubin 0.70, AST 24, ALT 19, Alkaline Phosphatase 102, Total Creatine Kinase 572 H, Total Protein 7.4, Albumin 3.6, Globulin 3.8, Albumin/Globulin Ratio 0.9 04/29/24 18:50: Ethyl Alcohol < 3.0 04/29/24 18:55: Urine Color Straw, Urine Clarity Sl. Cloudy, Urine pH 5.0, Ur Specific [place] 1.030, Urine Protein 100 H, Urine Glucose (UA) Normal, Urine Ketones 50 H, Urine Occult Blood 25 H, Urine Nitrite Negative, Urine Bilirubin 3 H, Urine Urobilinogen 4 H, Ur Leukocyte Esterase 25 H, Urine Opiates Screen NEGATIVE, Urine Methadone Screen NEGATIVE, Ur Barbiturates Screen NEGATIVE, Ur Phencyclidine Scrn NEGATIVE, Ur Amphetamines Screen NEGATIVE, MDMA (Ecstasy) Screen POSITIVE H, U Benzodiazepines Scrn NEGATIVE, Urine Cocaine Screen NEGATIVE, U Cannabinoids Screen NEGATIVE, Ur Drug Screen Comment 04/29/24 19:17: B-Natriuretic Peptide 28.8 Micro: Microbiology 04/29/24 18:55 Mucosa - Nose SARS-CoV-2, Influenza & RSV (PCR) - Final Imaging Radiology Impression Brain CT 04/29/24 18:44 IMPRESSION: There are no acute findings. Chronic involutional changes of the brain. Electronically Signed: Des Leger MD at 19:40 EST , Chest X-Ray 04/29/24 19:09 IMPRESSION: No radiographic evidence of acute cardiopulmonary disease. Electronically Signed: Des Leger MD at 19:39 EST , Chest CTA 04/29/24 19:17 IMPRESSION: No demonstrated pulmonary embolism or arterial dissection. 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 Electronically Signed: Des Leger MD at 20:11 EST , Assessment & Plan Assessment/Plan (1) Cognitive impairment: PLAN: Plan The patient is a 74 y/o F w/ PMHx: Obesity, HTN, HLD, Anxiety and Depression, Chronic insomnia, Former tobacco use who presents to the [facility] ED on 04/29/2024 with worsening weakness, debility and confusion per family concern with back surgery reportedly in December discharged home after spinal fusion however she was unable to function and ultimately needed TCU transition for 3 weeks and then skilled at [facility] with return to home only over the last 5 weeks initially doing well using a cane but over the last 5 weeks she has had a steady decline with increasing weakness and multiple falls hardly able to stand up with also noted shortness of breath, worse with exertion as well as confusion prompting family to bring her in for ED evaluation. #1. Significant debility, memory impairment, frequent falls and weakness, progressing over several weeks, Neurology [facility] suspicion of Dementia, Possible Parkinson's disease, low suspicion for stroke given timeline history would expect at least subacute findings on CT of the head complicated by previous spinal fusion/back surgery: Will admit to PCU, will obtain MRI Brain, consult Neurology, consult maintain on fall precautions. Vitamin B12, Folic acid, TSH, HgbA1c requested. Maintain on fall precautions. PT/OT/CM consulted for discharge planning. Pending this evaluation as noted may need to consider consultation Ortho spine. #2. Dyspnea, exertional unclear etiology, possibly anginal equivalent: EKG with SR with nonspecific changes with no acute evidence of ischemia, CTPA with no marked finding, will maintain on a monitored bed to assure no acute myocardial infarction with serial cardiac enzymes and EKGs. Echocardiogram requested. Magnesium level 1.7 in the ED. FLP in AM. If repeats her cardiac enzymes and EKGs remain unremarkable will pursue stress testing. ASA. #3. Incidentally noted aneurysmal dilatation ascending thoracic aorta: CTPA with noted 41 mm aneurysmal dilatation of the ascending thoracic aorta, will need to continue to follow-up outpatient. #4. Mild acute rhabdomyolysis: Noted history of recent fall, admission total creatinine kinase 572,, will continue to hydrate judiciously and repeat total creatinine kinase in AM, monitor I's and O's. #5. Hyperglycemia, possibly stress response: Admission glucose 178 but given history will obtain hemoglobin A1c to be cautious. #6. Hypokalemia: Admission K+ 2.7, magnesium per ED 1.7, supplementation given, repeat level in AM. #7. Anxiety and depression, chronic insomnia: Given recent history of confusion and significantly increased falls will be very cautious with heavy trazodone usage. #8. Hypothyroidism: Continue home levothyroxine regimen, TSH and free T4 requested. #9. Former tobacco use: Encourage continued tobacco cessation. #10. Obesity: Weight loss and lifestyle changes encouraged. #11. DVT prophylaxis: Lovenox. #12. CODE status: Patient HCPOA is [] and living will is []. Discussed CODE status at length including difference between FULL code, DNR-CCA and DNR-CC status. Following discussions about the differences in these status, requested []. Advanced Care Planning Face to Face Time: [] minutes.
[2024-04-29 20:39] VITALS: BP 134/100; PULSE 70; RESP 18; TEMP 36.8; O2SAT 97
[2024-04-29 21:00] VITALS: BP 141/96; PULSE 95; RESP 16; O2SAT 78
--- NOTE | 2024-04-29 21:18 | EKG12_ITS ---
Test Reason : CP ADMIT Blood Pressure : */* mmHG Vent. Rate : 77 BPM Atrial Rate : 77 BPM P-R Int : 124 ms QRS Dur : 82 ms QT Int : 398 ms P-R-T Axes : 16 -5 -27 degrees QTcB Int : 450 ms Normal sinus rhythm Nonspecific ST and T wave abnormality Abnormal ECG When compared with ECG of 29-Apr-2024 19:22, MANUAL COMPARISON REQUIRED DATA IS UNCONFIRMED Confirmed by ZAIDA FISCHER, ELO ([id number]), news video editor GUIDO ALEXANDER ([id number]) on 04/30/2024 2:03:15 PM Referred By: Confirmed By: ELO CERDA MD
[2024-04-29 21:30] VITALS: BMI 37.7
[2024-04-29 21:40] VITALS: BP 159/85; PULSE 68; RESP 18; TEMP 36; O2SAT 97
[2024-04-29 22:11] LABS: Troponin-I HS 10 pg/mL (3.0-54.0)
[2024-04-29] MEDS: MELATONIN 3 MG TABLET PO (22:20)
[2024-04-30 00:10] LABS: Troponin-I HS 9 pg/mL (3.0-54.0)
[2024-04-30 03:10] VITALS: BMI 37.6
[2024-04-30] MEDS: Aspirin E.C. 81 MG Tablet PO (03:32)
[2024-04-30 03:40] VITALS: BP 130/76; PULSE 60; RESP 18; TEMP 36.5; O2SAT 97
[2024-04-30 04:42] LABS: Troponin-I HS 7 pg/mL (3.0-54.0)
--- NOTE | 2024-04-30 05:55 | ECHOCS_ITS ---
Reason For Study: DYSPNEA Procedure This was a 2D Doppler, Color Flow transthoracic echocardiogram. The study was technically limited. Contrast injection was performed. Exam performed in department. Left Ventricle Normal LV size. Moderate concentric left ventricular hypertrophy. Left ventricular systolic function is normal. The left ventricular ejection fraction is 60 %. Stage 1 diastolic dysfunction. No regional wall motion abnormalities noted. Right Ventricle Normal RV size. Normal systolic function. Pulmonic Valve Normal pulmonic valve. Great Vessels Normal aortic root. The pulmonary artery is normal size. Normal inferior vena cava. Pericardium/Pleural No pericardial effusion. Medication [id number] given slow IV push to enhance endocardial definition. MMode/2D Measurements & Calculations LVIDd: 3.7 cm IVSd: 1.4 cm LVOT diam: 2.0 cm LVIDs: 2.6 cm LVPWd: 1.8 cm FS: 28.3 % LVOT area: 3.3 cm2 Ao root diam: 2.5 cm LAV(MOD-bp): 36.5 ml LVAd ap4: 25.1 cm2 LAV(MOD-bp) Indexed: 18.9 ml/m2 LVLd ap4: 7.2 cm LAV(MOD-sp2): 32.5 ml EDV(MOD-sp4): 71.7 ml LAV(MOD-sp4): 32.5 ml EDV(sp4-el): 74.6 ml LVAs ap4: 17.2 cm2 LVLs ap4: 6.7 cm ESV(MOD-sp4): 37.4 ml ESV(sp4-el): 37.7 ml EF(MOD-sp4): 47.8 % EF(sp4-el): 49.5 % SV(MOD-sp4): 34.2 ml SV(sp4-el): 36.9 ml LA A4 area: 15.4 cm2 SI(MOD-sp4): 17.7 ml/m2 RA A4 area: 9.4 cm2 Time Measurements MV dec time: 0.28 sec Doppler Measurements & Calculations MV E max josé miguel: 63.5 cm/sec Lat Peak E' José Miguel: 8.2 cm/sec Med Peak E' José Miguel: 10.7 cm/sec MV A max josé miguel: 87.9 cm/sec E/E' lat: 7.8 E/E' med: 5.9 MV E/A: 0.72 MV V2 max: 86.6 cm/sec MV dec slope: 236.2 cm/sec2 Ao V2 max: 137.1 cm/sec MV max P.0 mmHg Ao max P.5 mmHg MV V2 mean: 49.1 cm/sec Ao V2 mean: 90.3 cm/sec MV mean P.1 mmHg Ao mean P.8 mmHg MV V2 VTI: 37.4 cm Ao V2 VTI: 28.2 cm MVA(VTI): 2.0 cm2 AV (velocity ratio): 0.83 EUNICE(I,D): 2.7 cm2 EUNICE(V,D): 2.8 cm2 LV V1 max: 116.8 cm/sec SV(LVOT): 76.6 ml PA V2 max: 88.3 cm/sec LV V1 max P.5 mmHg PA V2 mean: 58.3 cm/sec LV V1 mean P.7 mmHg LV V1 mean: 76.2 cm/sec LV V1 VTI: 23.3 cm ECHO/Echo Complete W/ Contrast Interpretation Summary Normal LV size. Left ventricular systolic function is normal. The left ventricular ejection fraction is 60 %. Moderate concentric left ventricular hypertrophy. Stage 1 diastolic dysfunction. Contrast injection was performed. Ordering Physician: Orly Maradiaga Referring Physician: Josh Sanchez Chi Performed By: Almaz Roman RCS
--- NOTE | 2024-04-30 05:55 | MRI_ITS ---
STUDY: MRI BRAIN WITH AND WITHOUT CONTRAST REASON FOR EXAM: Female, 74 years old. Falls, confusion TECHNIQUE: Standardized multiplanar fat and water weighted pulse sequences were obtained. IV CLARISCAN 19ML was administered for the contrast portion of the examination. COMPARISON: Head CT dated April 29, 2024. FINDINGS: There is moderate cerebral atrophy with widening of the extra-axial spaces and ventricular dilatation. There are a limited number of small white matter hyperintensities, distributed throughout the deep white matter tracts of the cerebral hemispheres, consistent with mild chronic white matter ischemic changes. There is no evidence for recent intracranial ischemia or other cause of cytotoxic edema on diffusion weighted imaging (DWI). Normal bilateral frontal poles, and orbital frontal and gyrus recti of the frontal lobes. Normal bilateral temporal tips of the temporal lobes. There are no white matter shear injuries (diffuse axonal injuries). There are no parenchymal hemorrhages or hematomas. There are no findings to suggest prior closed head parenchymal injury of the brain. There are no demyelinating plagues of the supratentorial brain, brainstem or cerebellum. There are no findings suspicious for multiple sclerosis (MS). Normal bilateral basal ganglia. Normal thalami. There is no extra-axial fluid accumulation. Normal flow voids within the major intracranial circulation suggesting patency by spin echo criteria. Normal venous enhancement. There is no enhancing intra-axial or extra-axial abnormality. Normal sella turcica, pituitary gland, infundibular stalk, optic chiasm and hypothalamus. Normal tectal plate and pineal gland. Normal midbrain, carie and medulla. Normal cerebellum. Normal basal cisterns. Normal bilateral temporal bones. Normal bilateral internal auditory canals. No demonstrated orbital abnormality, within the constraints of a routine brain study. Normal visualized paranasal sinuses. Normal calvarium and skull base. Normal visualized soft tissue structures. Normal visualized upper cervical spine. MRI/Brain W/WO Contrast IMPRESSION: 1. Involutional changes of the brain, as described above. 2. No evidence of intracranial hemorrhage or traumatic injury 3. No acute infarct Electronically Signed: Juancarlos Danielle MD at 15:38 EST ,
[2024-04-30 06:10] LABS: Cholesterol 213 mg/dL (200); High Density Lipoprotein 80 mg/dL; T4 Free Direct 0.64 ng/dL (0.76-1.46); Triglycerides 78 mg/dL; Very Low Density Lipoprotein 16 mg/dL (5-40)
[2024-04-30] MEDS: Acetaminophen 325 MG Tablet 650 MG PO (07:56)
[2024-04-30 08:10] LABS: Vitamin B12 399 pg/mL (211-911)
[2024-04-30 08:30] VITALS: BP 155/74; PULSE 67; RESP 18; TEMP 36.6; O2SAT 95
[2024-04-30 08:30] LABS: Anion Gap 9 (5-15); BUN 11 mg/dL (7-18); Calcium,Total 8.7 mg/dL (8.5-10.1); Chloride 109 mmol/L (98-107); Creatinine, Serum 0.46 mg/dL (0.55-1.02); EST Glomerular Filtration Rate 142 mL/min (>60); Est Glom Filt Rate - Afr Amer 172 mL/min (>60); Estimated Creatinine Clearance 67.65 ml/min; Glucose 110 mg/dL (74-106); Magnesium 2.1 mg/dL (1.6-2.6); Potassium 3.1 mmol/L (3.5-5.1); Sodium Level 142 mmol/L (136-145)
[2024-04-30] MEDS: Levothyroxine 175 MCG Tablet PO (08:31)
[2024-04-30 08:33] LABS: Absolute Lymphocyte Count 1.52 X10^3/uL (0.83-4.51); Absolute Neutrophil Count 5.6 X10^3/uL (2.0-7.7); Basophil# 0.03 X10^3/uL; Basophil% 0.4 % (0-1); Eosinophil# 0.22 X10^3/uL; Eosinophils% 2.7 % (0-5); Hematocrit 34.4 % (37-47); Hemoglobin 10.6 g/dL (12.0-15.0); Lymphocyte # 1.52 X10^3/ul (0.83-4.51); Lymphocyte % 18.4 % (19-41); Mean Corp Hgb Conc 30.8 g/dL (32-36); Mean Corpuscular Hgb 27.4 pg (27.0-32.0); Mean Corpuscular Volume 88.9 fL (81-99); Mean Platelet Vol. 9.5 fl (6.2-12.0); Monocyte# 0.79 X10^3/uL; Monocyte% 9.6 % (0-10); NRBC Flagged by Analyzer 0 % (0-5); Neutrophil # 5.64 X10^3/uL (2.7-7.7); Neutrophil % 68.4 % (47-70); Platelet Count 315 K/mm3 (150-450); RBC Distribution Width CV 14.9 % (11.6-14.6); RBC Distribution Width SD 47.9 fl (35.1-43.9); Red Blood Count 3.87 M/mm3 (4.2-5.4); White Blood Count 8.2 K/mm3 (4.4-11.0)
[2024-04-30 08:34] LABS: Phosphorus 3.1 mg/dL (2.5-4.9)
--- NOTE | 2024-04-30 09:49 | PN.HOSP_ITS ---
Reason for Visit Reason for Visit: Diagnoses Other symptoms and signs involving cognitive functions and awareness (04/29/24) Subjective Subjective Patient feeling little bit better today, discussed her Synthroid and she reports that her dose has been changed multiple times and she is not sure what to take so she has not been taking it. Objective Data Objective Data Vital Signs: Vital Signs Temp Pulse Resp BP Pulse Ox O2 Del Method 97.9 F 67 18 155/74 H 95 Room Air 04/30/24 08:30 04/30/24 08:30 04/30/24 08:30 04/30/24 08:30 04/30/24 08:30 04/30/24 08:30 Oxygen Delivery Method Room Air Weight: 93.4 kg Body Mass Index (BMI) 37.6 Intake & Output: Intake and Output for Last 24 Hours 04/28/24 04/29/24 04/30/24 23:59 23:59 23:59 Intake Total 460 / 460 625 / 625 Balance 460 / 460 625 / 625 Lab / Micro Data 04/30/24 03:50 04/30/24 03:50 Labs: Laboratory Results - last 24 hr 04/29/24 18:16: WBC 13.3 H, RBC 4.25, Hgb 12.0, Hct 36.7 L, MCV 86.4, MCH 28.2, MCHC 32.7, RDW Std Deviation 46.2 H, RDW Coeff of Radha 14.6, Plt Count 321, MPV 9.7, Immature Gran % (Auto) 0.500, Neut % (Auto) 82.8 H, Lymph % (Auto) 8.7 L, [place] % (Auto) 6.9, Eos % (Auto) 0.6, Baso % (Auto) 0.5, Absolute Neuts (auto) 11.0 H, Absolute Lymphs (auto) 1.15, Nucleated RBC % 0, D-Dimer Quant (PE/DVT) 3.74 H*, Sodium 140, Potassium 2.7 L*, Chloride 106, Carbon Dioxide 26.0, Anion Gap 8, BUN 13, Creatinine 0.92, Estim Creat Clear Calc 59.46, Est GFR (MDRD) Af Amer 77, Est GFR (MDRD) Non-Af 64, BUN/Creatinine Ratio 14.1, Glucose 178 H, Calcium 8.9, Magnesium 1.7, Total Bilirubin 0.70, AST 24, ALT 19, Alkaline Phosphatase 102, Total Creatine Kinase 572 H, B-Natriuretic Peptide 28.8, Total Protein 7.4, Albumin 3.6, Globulin 3.8, Albumin/Globulin Ratio 0.9 04/29/24 18:50: Ethyl Alcohol < 3.0 04/29/24 18:55: Urine Color Straw, Urine Clarity Sl. Cloudy, Urine pH 5.0, Ur Specific [place] 1.030, Urine Protein 100 H, Urine Glucose (UA) Normal, Urine Ketones 50 H, Urine Occult Blood 25 H, Urine Nitrite Negative, Urine Bilirubin 3 H, Urine Urobilinogen 4 H, Ur Leukocyte Esterase 25 H, Urine Opiates Screen NEGATIVE, Urine Methadone Screen NEGATIVE, Ur Barbiturates Screen NEGATIVE, Ur Phencyclidine Scrn NEGATIVE, Ur Amphetamines Screen NEGATIVE, MDMA (Ecstasy) Screen POSITIVE H, U Benzodiazepines Scrn NEGATIVE, Urine Cocaine Screen NEGATIVE, U Cannabinoids Screen NEGATIVE, Ur Drug Screen Comment 04/29/24 21:40: Troponin I High Sens 10 04/29/24 23:39: Troponin I High Sens 9 04/30/24 03:50: WBC 8.2, RBC 3.87 L, Hgb 10.6 L, Hct 34.4 L, MCV 88.9, MCH 27.4, MCHC 30.8 L D, RDW Std Deviation 47.9 H, RDW Coeff of Radha 14.9 H, Plt Count 315, MPV 9.5, Immature Gran % (Auto) 0.500, Neut % (Auto) 68.4, Lymph % (Auto) 18.4 L , [place] % (Auto) 9.6, Eos % (Auto) 2.7, Baso % (Auto) 0.4, Absolute Neuts (auto) 5.6, Absolute Lymphs (auto) 1.52, Nucleated RBC % 0, Sodium 142, Potassium 3.1 L , Chloride 109 H, Carbon Dioxide 25.0, Anion Gap 9, BUN 11, Creatinine 0.46 L, Estim Creat Clear Calc 67.65, Est GFR (MDRD) Af Amer 172, Est GFR (MDRD) Non-Af 142, BUN/Creatinine Ratio 24.0 H, Glucose 110 H, Calcium 8.7, Phosphorus 3.1, Magnesium 2.1, Troponin I High Sens 7, Triglycerides 78, Cholesterol 213 H, LDL Cholesterol 117, VLDL Cholesterol 16, HDL Cholesterol 80, Vitamin B12 399, Folate 13.90, TSH 53.200 H, Free T4 0.64 L Micro: Microbiology 04/29/24 18:55 Mucosa - Nose SARS-CoV-2, Influenza & RSV (PCR) - Final Radiography Diagnostic Testing: Radiology Impression Brain CT 04/29/24 18:44 IMPRESSION: There are no acute findings. Chronic involutional changes of the brain. Electronically Signed: Des Leger MD at 19:40 EST , Chest X-Ray 04/29/24 19:09 IMPRESSION: No radiographic evidence of acute cardiopulmonary disease. Electronically Signed: Des Leger MD at 19:39 EST , Chest CTA 04/29/24 19:17 IMPRESSION: No demonstrated pulmonary embolism or arterial dissection. 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 Electronically Signed: Des Leger MD at 20:11 EST , Rhythm Strip Rhythm Strip: Sinus Rhythm Rate: 72 Ectopy: None Physical Exam Narrative General: Alert, did appropriately answer orientation questions, no apparent distress HEENT: Atraumatic, normocephalic Eyes: Anicteric, normal conjunctiva, extraocular movements grossly intact Neck: Supple Respiratory: Clear to auscultation bilaterally, normal respiratory effort Cardiovascular: Regular rate and rhythm GI: Soft, nontender, nondistended Extremities: No edema Musculoskeletal: Moving all extremities Neuro: No overt focal neurological deficits Skin: No rashes appreciated Psych: Cooperative Assessment & Plan Assessment/Plan (1) Falls frequently: PLAN: Plan # Weakness/debility -May be combination of hypokalemia with significantly uncontrolled hypothyroidism -Synthroid -Replace lytes -PT/OT # Worsening mental status -Following with [facility] neurology for concern for possible dementia versus Parkinson's disease -Worsened mental status may be due to her hypothyroidism given significant elevation in TSH there was no back in January there is concern for some underlying dementia -MRI no acute process -Discussed with teleneurology and they felt that it was reasonable to resume Synthroid and if patient improves likely does not need inpatient consultation continue with outpatient consultation # Elevated TSH in setting of known hypothyroidism -Patient reports given multiple changes in the medication previously she has not been compliant with this -Per med rehab DC note patient was supposed to follow-up with Dr. Jean in March but does not appear she did, also has had low TSH in the past when compliant with Synthroid and there is concern that she was either forgetting or not taken as prescribed -Synthroid has been resumed, if patient improves we will just need to stressed compliance and clarify dose # Dyspnea -Stress test within normal limits, echo stage I diastolic dysfunction but no other significant abnormalities -Patient 95% on room air -CTA with no PE or other acute process -COVID-negative, respiratory panel negative el # History of lumbar surgery -Surgery on 01/05/[address] 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
[2024-04-30 10:14] LABS: Hemoglobin A1c 5.8 % (3.8-5.6)
[2024-04-30] MEDS: Potassium Chloride Oral Tablet 20 MEQ 40 MEQ PO (11:57)
[2024-04-30 11:58] VITALS: BP 149/85; PULSE 73; RESP 18; TEMP 36.7; O2SAT 97
--- NOTE | 2024-04-30 12:44 | STRESSREP ---
Stress Test Report Pharmacologic myocardial perfusion stress test. 74-year-old lady with a history of chest pain Resting EKG demonstrates sinus rhythm with a rate of 66 bpm. Resting blood pressure is 142/84 mmHg. 0.4 mg of regadenoson was infused per usual protocol followed by rapid intravenous saline flush injection. Continuous EKG monitoring was performed. The maximum heart rate was 73 bpm which was 49% of max impacted heart rate the maximum workload was 1 metabolic equivalent. At rest there were no ST or T wave changes noted to suggest ischemia and at peak infusion nonspecific ST changes were noted which did not meet the criteria for ischemia. No clinical angina is noted. The final blood pressure was 114/78 mmHg. Myocardial perfusion protocol. 12 point mCi of technetium 99m sestamibi was injected at rest. 0.4 mg of regadenoson was infused per usual protocol. At peak infusion 36 mCi of technetium 99m sestamibi was injected stress images were obtained stress and rest images were reconstructed and compared in the short axis vertical long and horizontal long axis. Gated images were also obtained. Perfusion SPECT analysis: Review of the stress images demonstrate normal uptake of tracer noted in all areas of the myocardium. The resting images similar demonstrated normal uptake of tracer noted in all areas of the myocardium. No areas of reversibility are noted to suggest ischemia and no previous infarct is noted. Gated SPECT analysis: The gated ejection fraction is 64%. Conclusion: Normal pharmacologic myocardial perfusion stress test. Preserved ejection fraction.
[2024-04-30] MEDS: Enoxaparin 40 MG/0.4 ML Syringe SC (13:52)
[2024-04-30] MEDS: LORazepam 0.5 MG Tablet PO (13:52)
--- NOTE | 2024-04-30 15:40 | CASEMGMT ---
SHIRA MORRELL Face to Face with patient for initial transition planning/care coordination assessment. SHIRA MORRELL introduced self and role at [facility]. Patient lying in bed, alert and oriented. Patient willing to participate in assessment and is able to answer all questions appropriately. Care providers, pharmacy, and demographics verified. Strata: 2 PCP: Daniel Specialists: [facility] neurologist Preferred Pharmacy[facility] Insurance: MCR, Prescription Benefit: yes Living Will/HPOA: none LNOK: son, sister in law Living Arrangements: Patient lives alone in a first floor apartment with no steps to enter. Patient was independent at home but has been needing assistance from son with bathing the last week. Transportation: son DME/HHC: Patient has shower chair, cane, walker, rollator, and grab bars at home. No previous HHC or SNF. Patient wishes to discharge home but realizes it is not safe as she is needing assistance at this time. SHIRA MORRELL discuss HHC vs SNF. Patient states she believes she may need to go to a SNF at discharge. RN CM informed patient that a list of SNFs would be provided to patient to review and provide preferences. Patient voiced understanding. Patient states she has no further needs or concerns at this time. CM to follow for discharge planning needs that may arise. Disposition Plan: SNF pending acceptance. Marva PADILLA, RN, CM
--- NOTE | 2024-04-30 16:27 | CASEMGMT ---
Per RN CM patient would like to go somewhere for rehab. SW provided patient with a list of a list of snf facility providers including quality and resource use data and consistent with patient?s preferred geographic region, medical needs, and insurance network were provided from the [employer] Guide. SW asked patient to choose 3 or 4 preferences and SW will contact the facilities. Makenna CURRY
[2024-04-30 17:04] VITALS: BP 155/79; PULSE 73; RESP 18; TEMP 36.4; O2SAT 95
[2024-04-30] MEDS: MELATONIN 3 MG TABLET PO (20:24)
[2024-04-30 20:29] VITALS: BP 155/84; PULSE 90; RESP 16; TEMP 36.7; O2SAT 95
[2024-05-01 03:00] VITALS: BP 155/70; PULSE 70; RESP 16; TEMP 36.4; O2SAT 96
[2024-05-01 05:42] VITALS: BMI 37.3
[2024-05-01] MEDS: Levothyroxine 175 MCG Tablet PO (06:00)
[2024-05-01 06:15] VITALS: BP 158/99
[2024-05-01 06:25] LABS: Absolute Lymphocyte Count 1.62 X10^3/uL (0.83-4.51); Absolute Neutrophil Count 4.6 X10^3/uL (2.0-7.7); Basophil# 0.05 X10^3/uL; Basophil% 0.7 % (0-1); Eosinophil# 0.32 X10^3/uL; Eosinophils% 4.4 % (0-5); Hematocrit 37.4 % (37-47); Hemoglobin 10.9 g/dL (12.0-15.0); Lymphocyte # 1.62 X10^3/ul (0.83-4.51); Lymphocyte % 22.3 % (19-41); Mean Corp Hgb Conc 29.1 g/dL (32-36); Mean Corpuscular Hgb 27.2 pg (27.0-32.0); Mean Corpuscular Volume 93.3 fL (81-99); Mean Platelet Vol. 9.1 fl (6.2-12.0); Monocyte% 8.3 % (0-10); NRBC Flagged by Analyzer 0 % (0-5); Neutrophil # 4.64 X10^3/uL (2.7-7.7); Platelet Count 299 K/mm3 (150-450); RBC Distribution Width SD 51.4 fl (35.1-43.9); Red Blood Count 4.01 M/mm3 (4.2-5.4); White Blood Count 7.3 K/mm3 (4.4-11.0)
[2024-05-01 06:59] LABS: Anion Gap 5 (5-15); BUN 9 mg/dL (7-18); BUN/Creat Ratio 13.3 RATIO (10-20); Chloride 110 mmol/L (98-107); Creatinine, Serum 0.68 mg/dL (0.55-1.02); EST Glomerular Filtration Rate 91 mL/min (>60); Est Glom Filt Rate - Afr Amer 110 mL/min (>60); Estimated Creatinine Clearance 67.37 ml/min; Glucose 107 mg/dL (74-106); Potassium 3.4 mmol/L (3.5-5.1); Sodium Level 140 mmol/L (136-145)
[2024-05-01 07:22] VITALS: O2SAT 96
[2024-05-01 08:16] VITALS: BP 152/93; PULSE 65; RESP 16; TEMP 36.6; O2SAT 95
[2024-05-01] MEDS: Aspirin E.C. 81 MG Tablet PO (08:19)
[2024-05-01] MEDS: Enoxaparin 40 MG/0.4 ML Syringe SC (08:20)
--- NOTE | 2024-05-01 08:24 | PCM.PN.HOSP ---
Reason for Visit Reason for Visit: Diagnoses Repeated falls (04/29/24) Other symptoms and signs involving cognitive functions and awareness (04/29/24) Subjective Subjective Feels a little bit better today overall but does report having some diarrhea since taking potassium supplements, no nausea or vomiting, no abdominal pain Objective Data Objective Data Vital Signs: Vital Signs Temp Pulse Resp BP Pulse Ox O2 Del Method 97.8 F 65 16 152/93 H 95 Room Air 05/01/24 08:16 05/01/24 08:16 05/01/24 08:16 05/01/24 08:16 05/01/24 08:16 05/01/24 08:16 Oxygen Delivery Method Room Air Weight: 92.7 kg Body Mass Index (BMI) 37.3 Intake & Output: Intake and Output for Last 24 Hours 04/29/24 04/30/24 05/01/24 23:59 23:59 23:59 Intake Total 460 / 460 1105 / 1105 Balance 460 / 460 1105 / 1105 Lab / Micro Data 05/01/24 05:46 05/01/24 05:46 Labs: Laboratory Results - last 24 hr 04/30/24 03:50: WBC 8.2, RBC 3.87 L, Hgb 10.6 L, Hct 34.4 L, MCV 88.9, MCH 27.4, MCHC 30.8 L D, RDW Std Deviation 47.9 H, RDW Coeff of Radha 14.9 H, Plt Count 315, MPV 9.5, Immature Gran % (Auto) 0.500, Neut % (Auto) 68.4, Lymph % (Auto) 18.4 L, [place] % (Auto) 9.6, Eos % (Auto) 2.7, Baso % (Auto) 0.4, Absolute Neuts (auto) 5.6, Absolute Lymphs (auto) 1.52, Nucleated RBC % 0, Sodium 142, Potassium 3.1 L, Chloride 109 H, Carbon Dioxide 25.0, Anion Gap 9, BUN 11, Creatinine 0.46 L, Estim Creat Clear Calc 67.65, Est GFR (MDRD) Af Amer 172, Est GFR (MDRD) Non-Af 142, BUN/Creatinine Ratio 24.0 H, Glucose 110 H, Hemoglobin A1c 5.8 H, Calcium 8.7, Phosphorus 3.1, Magnesium 2.1 05/01/24 05:46: WBC 7.3, RBC 4.01 L, Hgb 10.9 L, Hct 37.4, MCV 93.3, MCH 27.2, MCHC 29.1 L D, RDW Std Deviation 51.4 H, RDW Coeff of Radha 15.0 H, Plt Count 299, MPV 9.1, Immature Gran % (Auto) 0.300, Neut % (Auto) 64.0, Lymph % (Auto) 22.3, [place] % (Auto) 8.3, Eos % (Auto) 4.4, Baso % (Auto) 0.7, Absolute Neuts (auto) 4.6, Absolute Lymphs (auto) 1.62, Nucleated RBC % 0, Sodium 140, Potassium 3.4 L, Chloride 110 H, Carbon Dioxide 25.0, Anion Gap 5, BUN 9, Creatinine 0.68, Estim Creat Clear Calc 67.37, Est GFR (MDRD) Af Amer 110, Est GFR (MDRD) Non-Af 91, BUN/Creatinine Ratio 13.3, Glucose 107 H, Calcium 9.0 Micro: Microbiology 04/30/24 12:10 Mucosa - Nose Respiratory Panel (PCR) - Final 04/29/24 18:55 Mucosa - Nose SARS-CoV-2, Influenza & RSV (PCR) - Final Radiography Diagnostic Testing: Radiology Impression Brain MRI 04/30/24 05:55 IMPRESSION: 1. Involutional changes of the brain, as described above. 2. No evidence of intracranial hemorrhage or traumatic injury 3. No acute infarct Electronically Signed: Juancarlos Danielle MD at 15:38 EST Reading Location ID and State: [facility] / [place] , Service support , Echocardiogram 04/30/24 05:55 Interpretation Summary Normal LV size. Left ventricular systolic function is normal. The left ventricular ejection fraction is 60 %. Moderate concentric left ventricular hypertrophy. Stage 1 diastolic dysfunction. Contrast injection was performed. Ordering Physician: Orly Maradiaga Referring Physician: Josh Sanchez Chi Performed By: Almaz Roman RCS Rhythm Strip Rhythm Strip: Sinus Rhythm Rate: 72 Ectopy: None Physical Exam Narrative General: Awake and alert HEENT: Atraumatic, normocephalic Eyes: Anicteric, normal conjunctiva, extraocular movements grossly intact Neck: Supple Respiratory: Clear to auscultation bilaterally, normal respiratory effort Cardiovascular: Regular rate and rhythm GI: Soft, nontender, nondistended Extremities: No edema Musculoskeletal: Moving all extremities Neuro: No overt focal neurological deficits Skin: No rashes appreciated Psych: Cooperative Assessment & Plan Assessment/Plan (1) Falls frequently: PLAN: Plan # Diarrhea -Patient reports diarrhea after potassium supplementation -Abdominal exam benign and no nausea or vomiting -Will run gentle IV fluids as patient reports she has had multiple episodes -If not improving or resolving may need stool studies however patient reports very specifically is seem to be associated with the potassium supplementation -Recheck BMP and magnesium in a.m. # Weakness/debility -May be combination of hypokalemia with significantly uncontrolled hypothyroidism -Synthroid -Replace lytes -PT/OT -05/01: Continue PT/OT, plan for SNF on discharge # Worsening mental status -Following with [facility] neurology for concern for possible dementia versus Parkinson's disease -Worsened mental status may be due to her hypothyroidism given significant elevation in TSH there was no back in January there is concern for some underlying dementia -MRI no acute process -Discussed with teleneurology and they felt that it was reasonable to resume Synthroid and if patient improves likely does not need inpatient consultation continue with outpatient consultation -05/01: On Synthroid, will need repeat levels on outpatient basis. Given this is most likely culprit for progressive decline rest of workup can likely be pursued on outpatient basis as previously planned # Elevated TSH in setting of known hypothyroidism -Patient reports given multiple changes in the medication previously she has not been compliant with this -Per med rehab DC note patient was supposed to follow-up with Dr. Jean in March but does not appear she did, also has had low TSH in the past when compliant with Synthroid and there is concern that she was either forgetting or not taken as prescribed -Synthroid has been resumed, if patient improves we will just need to stressed compliance and clarify dose -05/01: Patient resumed on Synthroid, may ultimately need dose adjustment as it is unclear if dose is the side due to previous noncompliance with up titration of dose or if this is actually the dose she requires # Dyspnea -Stress test within normal limits, echo stage I diastolic dysfunction but no other significant abnormalities -Patient 95% on room air -CTA with no PE or other acute process -COVID-negative, respiratory panel negative -05/01: Workup negative, vitally stable. Resume Synthroid. If symptoms persist could always consider outpatient pulm evaluation Chronic medical problems: # History of lumbar surgery -Surgery on 01/05/[address] Cooper, noted # Thoracic aortic aneurysm dilation -Measured at 41 mm -Monitor outpatient basis #Hypokalemia -Replace -Magnesium 2.1 and Phos 3.1 -Repeat in the AM -05/01: Replaced again, repeat in a.m. #DVT ppx: Lovenox subcu Gloria Johnson MD Time spent in the patient's overall evaluation, decision-making process, review of diagnostic data, adjustment of management, discussion with other providers, nursing and ancillary staff involved in patient's care documentation, 35 Minutes Charges/Coding Visit Charges Inpatient E&M: 07070 Subs Hosp L2
--- NOTE | 2024-05-01 09:42 | CASEMGMT ---
SW checked in with patient to obtain patient's SNF choices. Patient said her son is coming to [facility] in a few minutes and they will review the list. SW will check back. Makenna CURRY
[2024-05-01] MEDS: Potassium Chloride Oral Tablet 20 MEQ 60 MEQ PO (09:45)
[2024-05-01] MEDS: 0.9% Normal Saline (1000mL) 1,000 ML 75 ML IV (13:49)
[2024-05-01 13:51] VITALS: BP 140/78; PULSE 72; RESP 16; TEMP 36.5; O2SAT 97
--- NOTE | 2024-05-01 14:08 | CASEMGMT ---
SW spoke with patient and asked if she and her son were able to look at the list. Patient said her son is going somewhere tomorrow. Patient gave SW permission to call her son. SW called patient's son Reid. Introduced self and role at [facility]. SW explained situation and that patient needs to go somewhere for rehab. Reid's choices would be [facility] and second [facility] be [facility]. SW will work on referrals. SW sent a referral to [facility]. Makenna CURRY
--- NOTE | 2024-05-01 14:54 | CASEMGMT ---
Addendum entered by Christel Thayer 05/01/24 15:40: Social Work [facility] can take pt tomorrow. SW called son Reid, he is here. SW spoke w/Reid and pt in the room. SW explained to them [facility] does not have a bed for pt but [facility] will have a bed tomorrow. Both in agreement with this plan. Pt's son states he will be back in the morning as he had discussed w/Makenna completing POA papers, SW will let Makenna know. Reid plans to go then to look at [facility], and would like to transport pt to [facility] when she is discharged. SW explained as long as pt can get in and out of the car, this should be fine, explained that the staff here can help her. They state understanding. Plan: [facility] when medically ready. ELINOR Mendiola Original Note: Social Work SW received a call back from [facility], they do not have a bed for pt. Referral made to [facility] via [facility], SW will continue to follow. ELINOR Mendiola
--- NOTE | 2024-05-01 15:35 | CASEMGMT ---
Discharge Planning [facility] has accepted and can admit 05/02/24. Charlene Maradiaga DC Planning Asst.
[2024-05-01 21:30] VITALS: BP 160/111; PULSE 71; RESP 18; TEMP 36.5; O2SAT 95
[2024-05-01] MEDS: MELATONIN 3 MG TABLET PO (23:08)
[2024-05-02 03:30] VITALS: BP 167/97; PULSE 77; RESP 18; TEMP 36.9; O2SAT 97
[2024-05-02 03:40] VITALS: BP 167/97; PULSE 77
[2024-05-02] MEDS: hydrALAZINE 20 MG/ML Vial 10 MG IV (03:40)
[2024-05-02] MEDS: 0.9% Saline Lock 10 ML Syringe IV (03:41)
[2024-05-02] MEDS: Levothyroxine 175 MCG Tablet PO (05:02)
[2024-05-02 05:26] VITALS: BMI 37.4
[2024-05-02 06:19] LABS: Absolute Lymphocyte Count 2.43 X10^3/uL (0.83-4.51); Absolute Neutrophil Count 6.4 X10^3/uL (2.0-7.7); Basophil# 0.08 X10^3/uL; Basophil% 0.8 % (0-1); Eosinophil# 0.27 X10^3/uL; Eosinophils% 2.7 % (0-5); Hematocrit 36.5 % (37-47); Hemoglobin 11.7 g/dL (12.0-15.0); Lymphocyte # 2.43 X10^3/ul (0.83-4.51); Lymphocyte % 24.6 % (19-41); Mean Corp Hgb Conc 32.1 g/dL (32-36); Mean Corpuscular Hgb 27.9 pg (27.0-32.0); Mean Corpuscular Volume 87.1 fL (81-99); Mean Platelet Vol. 9.3 fl (6.2-12.0); Monocyte# 0.62 X10^3/uL; Monocyte% 6.3 % (0-10); NRBC Flagged by Analyzer 0 % (0-5); Neutrophil # 6.35 X10^3/uL (2.7-7.7); Neutrophil % 64.3 % (47-70); POSITIVE MORPHOLOGY YES; Platelet Count 352 K/mm3 (150-450); RBC Distribution Width SD 47.7 fl (35.1-43.9); Red Blood Count 4.19 M/mm3 (4.2-5.4); White Blood Count 9.9 K/mm3 (4.4-11.0)
[2024-05-02 06:29] LABS: Differential Indicated SCAN CRITERIA MET
[2024-05-02 07:08] LABS: Anion Gap 6 (5-15); BUN 9 mg/dL (7-18); BUN/Creat Ratio 11.8 RATIO (10-20); Calcium,Total 9.4 mg/dL (8.5-10.1); Chloride 109 mmol/L (98-107); Creatinine, Serum 0.76 mg/dL (0.55-1.02); EST Glomerular Filtration Rate 80 mL/min (>60); Est Glom Filt Rate - Afr Amer 96 mL/min (>60); Estimated Creatinine Clearance 67.41 ml/min; Glucose 125 mg/dL (74-106); Magnesium 1.8 mg/dL (1.6-2.6); Potassium 3.8 mmol/L (3.5-5.1); Sodium Level 138 mmol/L (136-145)
[2024-05-02 07:10] LABS: Reactive Lymphocyte RARE
--- NOTE | 2024-05-02 07:34 | NURSING ---
Patient removed heart monitor and is fully dressed. Stated she does not want to wear it because she is being discharged today.
[2024-05-02 07:47] VITALS: O2SAT 95
[2024-05-02] MEDS: Enoxaparin 40 MG/0.4 ML Syringe SC (09:11)
[2024-05-02] MEDS: Aspirin E.C. 81 MG Tablet PO (09:11)
[2024-05-02 09:15] VITALS: BP 159/91; PULSE 79; RESP 16; TEMP 37.1; O2SAT 96
--- NOTE | 2024-05-02 10:54 | CASEMGMT ---
Patient's son arrived and asked if SW could assist with witnessing patient's healthcare POA and healthcare LW. SW spoke with patient. SW explained Healthcare Power of Inventory Coordinator to patient. Patient verbalized understanding. Patient verbalized that she wants her son Reid to be the HCPOA. SIDRA reviewed documents. SIDRA and RN PETROS witnessed patient signing. Copies were made and given to patient along with originals. SW also placed a copy of each in patient's chart. Patient's son stated he will transport patient to [facility] when ready. He is going to [place] to [facility] at noon. SW told him we can notify him when patient is ready. SIDRA completed a 7000 in [facility] system. Plan: d/c to [facility] under skilled level of care on a convalescent stay. Patient's son stated he will transport patient. Makenna CURRY
--- NOTE | 2024-05-02 10:57 | PCM.TXEXTCAR ---
Diet Diet Order/Speech Therapy: 04/30/24 12:11 Diet: Cardiac - Heart Healthy Routine Orders/Code Status Suppository Type: Dulcolax 10mg Suppository Frequency: Daily PRN Routine Lab Work: BMP (2-3 days) and - (TSH 6 weeks) Code Status: Full Code DC O2, CPAP, BIPAP needs Additional Home O2 Discharge instructions: No Therapies Physical Therapy: Eval and Treat Occupational Therapy: Eval and Treat Problem/Diagnosis (1) Falls frequently: Status: Acute Code(s): R29.6 - Repeated falls Plan # Hypothyroidism # Insomnia # 41 mm thoracic aortic aneurysm 74-year-old female history of hypothyroidism, insomnia, and lumbar surgery presented [facility] ED 04/29/2024 due to weakness, cognitive decline, dyspnea. She was found to be hypokalemic and also to have a TSH of 53.2 and a free T4 of 0.64. Patient acknowledged that she was unsure of what Synthroid dose to take so she had not been taking any Synthroid. Workup entirely negative otherwise for dyspnea she had stress test and echo which did not show any acute process. Had brain MRI as well with no acute process. She had a chest CTA given the dyspnea which did not show any PE but did show a 41 mm thoracic aortic aneurysm can be monitored on an outpatient basis. Patient's symptoms did improve with reinstitution of Synthroid. She has had variable doses in the past due to widely fluctuating TSH values, suspect that it has been difficult to regulate due to difficulties with compliance. Overall patient feeling better but was agreeable to SNF prior to DC home. [facility], day of discharge patient overall feeling better with no new or acute complaints. Of note on day of discharge it was noted that patient's eyes sometimes jump [id number], she reports that this has been pointed out by Dr. Sanchez and has been evaluated in outpatient basis and is not new or acute change. Discharge instructions as followed: DISCHARGE INSTRUCTIONS PLEASE READ *Please take this with you to your next doctors appointment* -It is VERY important that you take your levothyroxine daily. Your levels have been significantly variable, this is likely due to difficulty regularly taking Synthroid. In light of this you will be discharged on a dose of 150 mcg of Synthroid but this may need adjusted in the future. Labs will need to be rechecked in roughly 6 weeks -Take levothyroxine on an empty stomach with water at least four hours after eating. Then wait 30-60 minutes before consuming any other food or beverage, especially coffee. Separate levothyroxine from vitamins by at least 4 hours. Stop taking any biotin supplement 4 days prior to having labs drawn. -Please follow-up with endocrinology upon discharge, he would benefit establishing care with Dr. Jean. Please call their office to schedule an appointment upon discharge. -Would recommend lab work (BMP) to check your potassium in 2 to 3 days through your primary care physician's office. Please call their office upon discharge to obtain order for lab work. -Additionally, you were incidentally noted to have a widening of the part of one of your blood vessels in your chest (thoracic aorta), this will need monitored routinely with imaging on an outpatient basis and does not need any acute management. This can be monitored through your primary care physician's office -Please call your primary care provider's office upon discharge to schedule a hospital follow up within 1 week. -For any concerning signs or symptoms please call 911 or proceed to the nearest emergency department Allergies/Procedures Done in Hospital Allergies Penicillins Allergy ([facility], Verified 04/29/24 17:49) Hives Type of Care/Length of Stay Estimated LOS: Convalescent Care Less Than 30 days Type of Care Needed: Skilled Rehab Potential: Fair Prognosis: Fair Additional Orders/Day of Discharge Day of Discharge: 05/02/24 Dietary and Speech Recommendations Dietitian Recommendations/Changes: Will liberalize diet to Regular to optimize oral intakes Will order 120mL EPHP TID with medpass to prevent further unintentional weight loss Discharge Plan Admission Admit Date/Time: 04/29/24 20:45 Primary Reason for Your Visit: Confusion, shortness of breath Attending Provider: Gloria Johnson Primary Care Provider: Josh Sanchez Chi Consulting Providers: Reid Gillespie; Carlo Clement; Kimberlee Pollard; Tere Haro; Odalys Shore; Rickey Bernstein; Janina Lambert; Sushant Tolentino; Giovanny Willoughby; Reymundo Landa; Mamta Khalil; Eliu Pratt; Christine Barrios; Flory Dow; Sabinafer Urena; Benoit Reynolds; Abi Duncan; Chip Christensen; Shanelle Guidry; Aziza Seo; Orly Maradiaga Instructions Patient Instructions: Levothyroxine Oral Tablet Additional Instructions / Restrictions: DISCHARGE INSTRUCTIONS PLEASE READ *Please take this with you to your next doctors appointment* -It is VERY important that you take your levothyroxine daily. Your levels have been significantly variable, this is likely due to difficulty regularly taking Synthroid. In light of this you will be discharged on a dose of 150 mcg of Synthroid but this may need adjusted in the future. Labs will need to be rechecked in roughly 6 weeks -Take levothyroxine on an empty stomach with water at least four hours after eating. Then wait 30-60 minutes before consuming any other food or beverage, especially coffee. Separate levothyroxine from vitamins by at least 4 hours. Stop taking any biotin supplement 4 days prior to having labs drawn. -Please follow-up with endocrinology upon discharge, he would benefit establishing care with Dr. Jean. Please call their office to schedule an appointment upon discharge. -Would recommend lab work (BMP) to check your potassium in 2 to 3 days through your primary care physician's office. Please call their office upon discharge to obtain order for lab work. -Additionally, you were incidentally noted to have a widening of the part of one of your blood vessels in your chest (thoracic aorta), this will need monitored routinely with imaging on an outpatient basis and does not need any acute management. This can be monitored through your primary care physician's office -Please call your primary care provider's office upon discharge to schedule a hospital follow up within 1 week. -For any concerning signs or symptoms please call 911 or proceed to the nearest emergency department Discharge Orders/Prescriptions Prescriptions: New levothyroxine 175 mcg Tablet 150 mcg PO DAILY@0600 Qty: 0 0RF Continued trazodone 100 mg Tablet 150 mg PO QHS Qty: 2 0RF Discontinued levothyroxine 175 mcg Tablet 175 mcg PO DAILY@0600 Qty: 1 0RF Referrals / Follow Up: Ryne Jean MD [Med Staff - Courtesy Staff] - Josh Sanchez Chi, MD [Primary Care Provider] - Within 1 Week Disposition Disposition (needs filled in before D/C Order can be placed): Intermediate Facility
--- NOTE | 2024-05-02 10:59 | DS.PCM_ITS ---
Providers Date of Admission: 04/29/24 Date of Discharge: 05/02/24 Primary Care Physician: Dr. Josh Sanchez MD Consultations 04/29/24 21:24 Neurology [Consult: Tele-Neurology] Routine Consulting Provider: [facility] Reason for Consult: Decline, cognitive impairment EMERGENT Consult: No MD Notified: Yes Date Notified: 04/29/24 Time Notified: 22:43 Method of Notification: Answering Service Nursing Unit Staff Notify [facility] of Tele-Neurology Consult: Yes Reason For Visit: FALLS EXERTIONAL DYSPNEA COGNITIVE DECLINE Diagnosis Discharge Diagnosis (1) Falls frequently: Status: Acute Code(s): R29.6 - Repeated falls Plan # Hypothyroidism # Insomnia # 41 mm thoracic aortic aneurysm Medications at Discharge Home Medications trazodone 100 mg tablet 150 mg (1.5 x 100 mg) PO QHS #2 tabs 01/23/24 levothyroxine 175 mcg tablet 150 mcg (0.8571 x 175 mcg) PO DAILY@0600 #0 tabs 05/02/24 Hospital Course Summary of Care Provided Minutes Spent on Discharge: 31 Hospital Course: 74-year-old female history of hypothyroidism, insomnia, and lumbar surgery presented [facility] ED 04/29/2024 due to weakness, cognitive decline, dyspnea. She was found to be hypokalemic and also to have a TSH of 53.2 and a free T4 of 0.64. Patient acknowledged that she was unsure of what Synthroid dose to take so she had not been taking any Synthroid. Workup entirely negative otherwise for dyspnea she had stress test and echo which did not show any acute process. Had brain MRI as well with no acute process. She had a chest CTA given the dyspnea which did not show any PE but did show a 41 mm thoracic aortic aneurysm can be monitored on an outpatient basis. Patient's symptoms did improve with reinstitution of Synthroid. She has had variable doses in the past due to widely fluctuating TSH values, suspect that it has been difficult to regulate due to difficulties with compliance. Overall patient feeling better but was agreeable to SNF prior to DC home. [facility] was [facility], day of discharge patient overall feeling better with no new or acute complaints. Of note on day of discharge it was noted that patient's eyes sometimes jump [id number], she reports that this has been pointed out by Dr. Sanchez and has been evaluated in outpatient basis and is not new or acute change. Discharge instructions as followed: DISCHARGE INSTRUCTIONS PLEASE READ *Please take this with you to your next doctors appointment* -It is VERY important that you take your levothyroxine daily. Your levels have been significantly variable, this is likely due to difficulty regularly taking Synthroid. In light of this you will be discharged on a dose of 150 mcg of Synthroid but this may need adjusted in the future. Labs will need to be rechecked in roughly 6 weeks -Take levothyroxine on an empty stomach with water at least four hours after eating. Then wait 30-60 minutes before consuming any other food or beverage, especially coffee. Separate levothyroxine from vitamins by at least 4 hours. Stop taking any biotin supplement 4 days prior to having labs drawn. -Please follow-up with endocrinology upon discharge, he would benefit establishing care with Dr. Jean. Please call their office to schedule an appointment upon discharge. -Would recommend lab work (BMP) to check your potassium in 2 to 3 days through your primary care physician's office. Please call their office upon discharge to obtain order for lab work. -Additionally, you were incidentally noted to have a widening of the part of one of your blood vessels in your chest (thoracic aorta), this will need monitored routinely with imaging on an outpatient basis and does not need any acute management. This can be monitored through your primary care physician's office -Please call your primary care provider's office upon discharge to schedule a hospital follow up within 1 week. -For any concerning signs or symptoms please call 911 or proceed to the nearest emergency department Physical Exam Narrative General: Awake and alert HEENT: Atraumatic, normocephalic Eyes: Anicteric, normal conjunctiva, does have some jumping movements of her eyes [id number], reports that this is not new and has been evaluated by Dr. Sanchez on outpatient basis Neck: Supple Respiratory: Clear to auscultation bilaterally, normal respiratory effort Cardiovascular: Regular rate and rhythm GI: Soft, nontender, nondistended Extremities: No edema Musculoskeletal: Moving all extremities Neuro: No overt focal neurological deficits Skin: No rashes appreciated Psych: Cooperative Weight / BMI Weight Weight: 92.8 kg Body Mass Index (BMI) 37.4 ABG / Lab / Microbiology Data 05/02/24 05:41 05/02/24 05:41 Laboratory: Laboratory Results - last 24 hr 05/02/24 05:41: WBC 9.9, RBC 4.19 L, Hgb 11.7 L, Hct 36.5 L, MCV 87.1 D, MCH 27.9, MCHC 32.1 D, RDW Std Deviation 47.7 H, RDW Coeff of Radha 15.0 H, Plt Count 352, MPV 9.3, Immature Gran % (Auto) 1.300 H, Neut % (Auto) 64.3, Lymph % (Auto) 24.6, [place] % (Auto) 6.3, Eos % (Auto) 2.7, Baso % (Auto) 0.8, Absolute Neuts (auto) 6.4, Absolute Lymphs (auto) 2.43, Nucleated RBC % 0, Reactive Lymphocytes RARE, Sodium 138, Potassium 3.8, Chloride 109 H, Carbon Dioxide 23.0, Anion Gap 6, BUN 9, Creatinine 0.76, Estim Creat Clear Calc 67.41, Est GFR (MDRD) Af Amer 96, Est GFR (MDRD) Non-Af 80, BUN/Creatinine Ratio 11.8, Glucose 125 H, Calcium 9.4, Magnesium 1.8 Microbiology: Microbiology 04/30/24 12:10 Mucosa - Nose Respiratory Panel (PCR) - Final 04/29/24 18:55 Mucosa - Nose SARS-CoV-2, Influenza & RSV (PCR) - Final D/C Instructions Discharge Diet: - (DASH diet) DC O2, CPAP, BIPAP Needs Additional Home O2 Discharge instructions: No DC home with Oxygen: No Meaningful Use Info Meaningful Use Meaningful Use Diagnoses (Choose all that apply): None applicable Ischemic Stroke Statin Dosing Therapy Reference: STATIN DOSE THERAPY REFERENCE: * Patients > 75 years receive moderate or high dose statin therapy. * Patients 75 years or YOUNGER should receive HIGH intensity statin dose unless contraindicated. You will be required to document reason for non-treatment if statin daily dose does not meet guidelines. HIGH DOSE STATIN THERAPY DAILY Atorvastatin > than or = to 40 mg Rosuvastatin > than or = to 20 mg Amlodipine + Atorvastatin > than or = to 2.5/40 mg Ezetimibe + Simvastatin 10/80 mg Simvastatin 80mg Discharge Plan Admission Admit Date/Time: 04/29/24 20:45 Primary Reason for Your Visit: Confusion, shortness of breath Attending Provider: Gloria Johnson Primary Care Provider: Josh Sanchez Chi Consulting Providers: Reid Gillespie; Carlo Clement; Kimberlee Pollard; Tere Haro; Odalys Shore; Rickey Bernstein; Janina Lambert; Sushant Tolentino; Giovanny Willoughby; Reymundo Landa; Mamta Khalil; Eliu Pratt; Christine Barrios; Flory Dow; Anna Muhammad; Benoit Reynolds; Abi Duncan; Chip Christensen; Shanelle Guidry; Aziza Seo; Orly Maradiaga Instructions Patient Instructions: Levothyroxine Oral Tablet Additional Instructions / Restrictions: DISCHARGE INSTRUCTIONS PLEASE READ *Please take this with you to your next doctors appointment* -It is VERY important that you take your levothyroxine daily. Your levels have been significantly variable, this is likely due to difficulty regularly taking Synthroid. In light of this you will be discharged on a dose of 150 mcg of Synthroid but this may need adjusted in the future. Labs will need to be rechecked in roughly 6 weeks -Take levothyroxine on an empty stomach with water at least four hours after eating. Then wait 30-60 minutes before consuming any other food or beverage, especially coffee. Separate levothyroxine from vitamins by at least 4 hours. Stop taking any biotin supplement 4 days prior to having labs drawn. -Please follow-up with endocrinology upon discharge, he would benefit establishing care with Dr. Jean. Please call their office to schedule an appointment upon discharge. -Would recommend lab work (BMP) to check your potassium in 2 to 3 days through your primary care physician's office. Please call their office upon discharge to obtain order for lab work. -Additionally, you were incidentally noted to have a widening of the part of one of your blood vessels in your chest (thoracic aorta), this will need monitored routinely with imaging on an outpatient basis and does not need any acute management. This can be monitored through your primary care physician's office -Please call your primary care provider's office upon discharge to schedule a hospital follow up within 1 week. -For any concerning signs or symptoms please call 911 or proceed to the nearest emergency department Discharge Orders/Prescriptions Prescriptions: New levothyroxine 175 mcg Tablet 150 mcg PO DAILY@0600 Qty: 0 0RF Continued trazodone 100 mg Tablet 150 mg PO QHS Qty: 2 0RF Discontinued levothyroxine 175 mcg Tablet 175 mcg PO DAILY@0600 Qty: 1 0RF Referrals / Follow Up: Ryne Jean MD [Med Staff - Courtesy Staff] - Josh Sanchez Chi, MD [Primary Care Provider] - Within 1 Week Disposition Disposition (needs filled in before D/C Order can be placed): [facility] Living Facility Charges/Coding Visit Charges Inpatient E&M: 91962 Disch Hosp >30min
--- NOTE | 2024-05-02 11:05 | CASEMGMT ---
Discharge Planning Discharge orders, signed med list, and transport time sent to [facility]. Pts son will transport around 1p. Nursing aware. Charlene Maradiaga DC Planning Asst.
--- NOTE | 2024-05-02 11:33 | PHA.DC.MR.R ---
Pharmacy [facility] Med Reconciliation Pharmacy Service has performed discharge medication reconciliation for this patient. The patient's discharge medication list was reviewed for discrepancies and discrepancies were resolved. Medications at Discharge Home Medications trazodone 100 mg tablet 150 mg (1.5 x 100 mg) PO QHS #2 tabs 01/23/24 levothyroxine 175 mcg tablet 150 mcg (0.8571 x 175 mcg) PO DAILY@0600 #0 tabs 05/02/24
--- NOTE | 2024-05-02 11:44 | CASEMGMT ---
SIDRA called patient's son Reid and let him know that patient's discharge information is done so he can stop by after his visit at [facility]. Reid thanked patient for the update. Makenna Ross ORNAMENTAL IRON WORKER HELPERMiranda CURRY
--- NOTE | 2024-05-02 11:56 | NURSING ---
called report to sheri PAGE at [facility]
[2024-05-02 11:58] VITALS: BP 158/89; PULSE 89; RESP 16; TEMP 37; O2SAT 95
== END 2024-05-02 13:02 | disposition skilled nursing facility (03) | DRG 644 ==
LOC: ED 18:50 → PCU 20:56
PROVIDERS: Admitting Provider Family Medicine; Emergency Provider Emergency Medicine; PCP Family Medicine Geriatric Medicine; Visit Provider Internal Medicine
DX: E03.9 Hypothyroidism, unspecified (principal); M62.82 Rhabdomyolysis; N39.0 Urinary tract infection, site not specified; F19.10 Other psychoactive substance abuse, uncomplicated; I10 Essential (primary) hypertension; F32.A Depression, unspecified; I77.810 Thoracic aortic ectasia; E66.9 Obesity, unspecified; E78.5 Hyperlipidemia, unspecified; E87.6 Hypokalemia; F41.9 Anxiety disorder, unspecified; R54 Age-related physical debility; R19.7 Diarrhea, unspecified; R73.9 Hyperglycemia, unspecified; Z98.1 Arthrodesis status; Z87.891 Personal history of nicotine dependence; R41.89 Other symptoms and signs involving cognitive functions and awareness; Z11.52 Encounter for screening for COVID-19; Z99.89 Dependence on other enabling machines and devices; R29.6 Repeated falls; G47.00 Insomnia, unspecified; R06.89 Other abnormalities of breathing; Z79.890 Hormone replacement therapy; Z79.899 Other long term (current) drug therapy; Z91.148 Patient's other noncompliance with medication regimen for other reason; T38.1X6A Underdosing of thyroid hormones and substitutes, initial encounter; Z88.1 Allergy status to other antibiotic agents; Z68.37 Body mass index [BMI] 37.0-37.9, adult; X58.XXXA Exposure to other specified factors, initial encounter; R26.89 Other abnormalities of gait and mobility
CPT/HCPCS: 36415; 70450; 70553; 71045; 71275; 78452; 80048; 80053; 80061; 80307; 81002; 82077; 82550; 82607; 82746; 83036; 83735; 83880; 84100; 84439; 84443; 84484; 85025; 85379; 87631; 87633; 93005; 93017; 93306; 94668; 97110; 97116; 97162; 97166; 97530; 97535; 99285; A9500; A9575; Q9967; A4216; C8929; J2785

== ENCOUNTER → 2024-05-27 | Outpatient (CLI) | payer MEDICARE, OTHER, SELFPAY ==
--- NOTE | 2024-05-27 08:35 | MRI_ITS ---
STUDY: MRI LUMBAR SPINE WITHOUT CONTRAST REASON FOR EXAM: Female, 74 years old. MYELOPATHY denies pain, multiple falls, unable to walk, spinal fusion 01/03, no surgery on cervical TECHNIQUE: Standardized fat and water weighted pulse sequences were obtained in the sagittal and axial planes. COMPARISON: None FINDINGS: No demonstrated fracture or compression deformity or displaced bony fragment stable posterior fusion rods and pedicle screws at L5-S1. Normal lumbar lordosis. There is no substantial scoliosis. Normal conus medullaris that terminates at the L1 level . No fracture or compression forming is present. Chronic bilateral L5 pars interarticularis defects. Stable posterior fusion rods and pedicle screws at L5-S1. T12-L1: Normal endplates. Normal disc height, hydration and morphology. Normal bilateral facet joints. Normal central canal and bilateral lateral recesses. Normal bilateral intervertebral neural foramina. L1-2: Normal endplates. Normal disc height, hydration and morphology. Normal bilateral facet joints. Normal central canal and bilateral lateral recesses. Normal bilateral intervertebral neural foramina. L2-3: Normal endplates. Normal disc height, hydration and morphology. Normal bilateral facet joints. Normal central canal and bilateral lateral recesses. Normal bilateral intervertebral neural foramina. L3-4: Normal endplates. Normal disc height, hydration and morphology. Normal bilateral facet joints. Normal central canal and bilateral lateral recesses. Normal bilateral intervertebral neural foramina. L4-5: Normal endplates. Diffuse disc desiccation. Normal disc and morphology. Mild facet joint hypertrophy. Normal central canal and bilateral lateral recesses. Normal bilateral intervertebral neural foramina. L5-S1: Posterior surgical decompressive defect. Stable spinal hardware. Chronic bilateral pars interarticularis defects at L5. Diffuse disc desiccation with mild disc space narrowing but no significant posterior disc herniation or bulging. Mild facet joint hypertrophy. Normal central canal and bilateral lateral recesses. Normal visualized sacral ala. There is mild paraspinal muscular atrophy. MRI/Spine Lumbar (Routine) IMPRESSION: Multilevel degenerative changes, as described above. Electronically Signed: Juancarlos Danielle MD at 9:35 EST ,
--- NOTE | 2024-05-27 08:35 | MRI_ITS ---
STUDY: MRI CERVICAL SPINE WITHOUT CONTRAST REASON FOR EXAM: Female, 74 years old. MYELOPATHY TECHNIQUE: Standardized fat and water weighted pulse sequences were obtained in the sagittal and axial planes. COMPARISON: None FINDINGS: Normal foramen magnum and brainstem-cervical cord junction. Normal craniovertebral junction. Normal anterior atlantoaxial articulation. Normal odontoid process. Normal cervical lordosis. No evidence for acute fracture or subluxation. Small interosseous hemangioma in the C5 vertebral body. C2-3: Normal endplates. Normal disc height, signal and morphology. Normal central canal and intervertebral neural foramina. C3-4: Normal endplates. Normal disc height, signal and morphology. Normal central canal and intervertebral neural foramina. C4-5: Normal endplates. Narrowed disc space and minimal osteophytic ridging.. Normal central canal. Minor bilateral neural foraminal encroachment secondary to bony hypertrophy. C5-6: Narrowed disc space and minimal bulging disc osteophyte complex. Mild narrowing of the central canal and mild bilateral neural foraminal encroachment C6-7: Normal endplates. Normal disc height, signal and normal morphology. Normal central canal and intervertebral neural foramina. C7-T1: Normal endplates. Normal disc height, signal and morphology. Normal central canal and intervertebral neural foramina. Normal cervical cord. Normal visualized soft tissue structures. MRI/Spine Cervical (Routine) IMPRESSION: Mild spondylosis most pronounced at C5-6. No evidence for significant disc protrusions spinal stenosis or cord compression Electronically Signed: Jak Power MD at 16:29 EST Reading Location ID and State: [address] [place] [address] Tel , Service support ,
== END | disposition home or self-care (01) ==
LOC: MRI 05-28 08:17
PROVIDERS: PCP Family Medicine Geriatric Medicine; Referring Provider Psychiatry & Neurology Neurology; Visit Provider Psychiatry & Neurology Neurology
DX: G95.9 Disease of spinal cord, unspecified (principal)
CPT/HCPCS: 72141; 72148

== ENCOUNTER 2024-08-09 19:25 | Emergency (ER) | payer MEDICARE, OTHER, SELFPAY ==
[2024-08-09 19:26] VITALS: BP 152/73; PULSE 83; RESP 16; TEMP 36.6; O2SAT 93; BMI 37.1
[2024-08-09 19:29] VITALS: O2SAT 98
--- NOTE | 2024-08-09 19:51 | RAD_ITS ---
PROCEDURE: Cervical spine radiographs REASON FOR EXAM: Pain, injury TECHNIQUE: Five views of the cervical spine COMPARISON: None. FINDINGS: See impression RAD/Cerv Spine 2 or 3 Views IMPRESSION: Vertebral body heights are within normal limits. No evidence of traumatic subl uxation. Moderate degenerative changes from C4 through C7 including disc space narrowing and uncovertebral arthrosis. Mild-to -moderate multilevel facet arthrosis, greatest at the upper cervical spine. No significant prevertebral edema. Reading Location: [facility]
--- NOTE | 2024-08-09 20:16 | EX.ED.GENINJ ---
HPI History of Present Illness Chief Complaint: Fall Detail of Chief Complaint: Patient fell. She has difficulty walking for unknown reasons. Informant: patient Onset/Context/Timing Onset: Hours Mechanism/Context: Blunt Injury and Fall Location of pain/injuries: - (Left periorbital area) Quality of Pain: Dull Location: Superior the left brow Current Severity: Mild Maximum Severity: Mild Worsened by: Palpation Relieved by: Nothing Associated Symptoms Associated Symptoms: Negative for Parasthesias, Weakness, Loss of function, Inability to ambulate, Loss of consciousness or Amnesia Narrative Narrative: Patient is a 74-year-old woman who [facility] because she has been unable to walk since having spinal surgery. She has been seen by multiple spine surgeons, neurology and etiology of her inability to ambulate/weakness of her legs is unknown. Tetanus Immunization: 5-10 years Prior similar symptoms: No Recent Illness/Hospitalization: No PFSH PFSH Medical History Increased urinary frequency Morbid obesity Depression Essential (primary) hypertension Lumbar stenosis Insomnia Hypothyroidism Post-menopausal Anxiety Thyroid disease Ambulates with cane Arthritis Easy bruising Injury of back Back pain Fall Loss of consciousness Hoarseness Former smoker History of pain when walking Hypertension Home Medications ?Medication ?Instructions ?Recorded ?Last Taken ?Type trazodone 100 mg tablet 150 mg (1.5 x 100 mg) PO QHS #2 01/23/24 Unknown Rx tabs levothyroxine 175 mcg tablet 150 mcg (0.8571 x 175 mcg) PO 05/02/24 Unknown Rx DAILY@0600 #0 tabs bisacodyl 10 mg rectal suppository 10 mg PA ONCE 06/08/24 Unknown History magnesium hydroxide 400 mg/5 mL 5 ml PO QDAY PRN 06/08/24 Unknown History oral suspension (Milk of Magnesia) Allergy/AdvReac Type Severity Reaction Status Date / Time Penicillins Allergy Intermediate Hives Verified 08/09/24 19:29 Family History Father Alcohol abuse Mother No problems noted. Surgical History History of lumbosacral spine surgery Hx of tubal ligation Hx of total knee replacement Social History household members: children and other details: Son lives with her. housing: assisted living facility Smoking Status: Former smoker alcohol intake: never substance use type: does not use ROS ROS ED Constitutional Constitutional ED: Denies chills, fever(s), subjective or sweats Eyes Eyes: Denies blurry vision or change in vision ENT ENT ED: Denies ear pain, rhinorrhea or sore throat Cardiovascular Cardiovascular: Denies chest pain or palpitations Respiratory/Chest Respiratory/Chest: Denies cough, dyspnea or dyspnea on exertion Gastrointestinal Gastrointestinal: Denies abdominal pain, nausea or vomiting Musculoskeletal Musculoskeletal: Reports neck pain; Denies arthralgias, back pain or myalgias Integumentary Reports other Details: Laceration forehead 1.5 cm total length ; Denies abscess, Abrasions or rash Neurologic Neurologic: Denies headache(s), paresthesias or weakness Endocrine Endocrinology: Denies cold intolerance or heat intolerance Hematologic/Lymphatic Hematologic/Lymphatic: Denies easy bleeding or easy bruising EXAM Physical Exam Const Vital Signs: 08/09/24 19:26 08/09/24 19:29 Temperature 97.9 F Temperature Source Temporal Pulse Rate 83 Respiratory Rate 16 Respiratory Effort Normal Non-Labored Respiratory Depth Normal Respiratory Pattern Normal Blood Pressure 152/73 H Blood Pressure Mean 99 Pulse Ox 93 98 Oxygen Delivery Method Room Air Room Air Positive well nourished and well developed Constitutional Narrative: BMI 37.2 General Appearance ED: well developed and NAD HEENT HEENT Narrative: Superior the left brow. There is no palp depression. There is no clinic signs of basilar skull fracture. There is no septal deviation hematoma. There is no evidence of dental trauma. trauma and tenderness Eyes PERRL and EOMs intact bilaterally General Eye ED: Yes other Other Details: There is no nystagmus. There is no subconjunctival hemorrhage. Neck Neck Narrative: Patient has paracervical tenderness. There is no true posterior midline neck pain. General: tenderness Chest Wall inspection of chest normal and palpation of chest normal Resp normal respiratory effort and clear to auscultation bilaterally Cardio regular rhythm, S1 normal heart sound, S2 normal heart sound and no murmurs Rate: regular rate GI normal to inspection, nondistended, normoactive bowel sounds, non-tender, non-distended and no masses Palpation: soft Back/Spine normal to inspection and no thoracic nor lumbar tenderness Extremity normal to inspection and full ROM Neuro oriented x3, CN's II-XII intact bilaterally, moves all extremities, no focal motor deficits and no sensory deficits noted [place] Coma Scale: document GCS findings Spontaneous Obeys Commands Oriented 15 Sensorium / Orientation: alert Deep Tendon Reflexes: Rt Triceps (C7): 1+, Lt Triceps (C7): 1+, Rt Biceps (C5, C6): 1+, Lt Biceps (C5, C6): 1+, Rt Brachioradialis (C6): 1+, Lt Brachioradialis (C6): 1+, Rt Patellar (L4): 1+, Lt Patellar (L4): 1+, Rt Ankle (S1): 1+ and Lt Ankle (S1): 1+ Deep Tendon Reflexes Back: Rt Patellar (L4): 1+, Lt Patellar (L4): 1+, Rt Ankle (S1): 1+ and Lt Ankle (S1): 1+ Plantar Reflex: Downgoing: bilateral Psych mental status grossly normal and thought process normal Skin Skin Narrative: Laceration above the left brow with a periorbital contusion noted otherwise no abnormality MDM MDM MDM Narrative Medical decision making narrative: Fell forward striking her face on the ground. No loss of conscious. Not amnestic. No days. Not on an antithrombotic or anticoagulant. This is a mechanical fall because she attempted to walk without assistance. Since she has paracervical discomfort not true midline tenderness with no history of osteoporosis or osteopenia x-ray was obtained since she is not a multiple trauma patient. My opinion CT is not warranted. She does have a laceration which will require repair. History & Record Review Additional record(s) reviewed:: Prior inpatient record (Admission April 2024 for frequent falls, hypothyroidism, insomnia, depression.) and Prior outpatient record (Orthopedic office visit for cervical disc degeneration's mid cervical region.) Radiography Chest X-Ray - ED: Read by ED Physician (Three-view x-ray of also mild degenerative changes. There is no prevertebral soft tissue swelling. There is no evidence of fracture, subluxation or dislocation.) Diagnostic Testing: Clinical Impression(s) from Imaging Studies Cervical Spine X-Ray 08/09/24 19:51 IMPRESSION: Vertebral body heights are within normal limits. No evidence of traumatic subluxation. Moderate degenerative changes from C4 through C7 including disc space narrowing and uncovertebral arthrosis. [id number] multilevel facet arthrosis, greatest at the upper cervical spine. No significant prevertebral edema. Reading Location: [facility] Discharge Plan Triage Chief Complaint: Fall ED Provider: Jude Grossman Dx/Rx/DC Orders Clinical Impression: Contusion of face, Laceration of forehead, Acute cervical myofascial strain, Other cervical disc degeneration, mid-cervical region, unspecified level Instructions: ED Facial Contusion, ED Laceration, All Closures, ED Laceration Minimize Scars Prescriptions: No Action bisacodyl 10 mg suppository 10 mg PA ONCE magnesium hydroxide [Milk of Magnesia] 400 mg/5 mL suspension 5 ml PO QDAY PRN trazodone 100 mg Tablet 150 mg PO QHS Qty: 2 0RF levothyroxine 175 mcg Tablet 150 mcg PO DAILY@0600 Qty: 0 0RF Primary Care Provider: Josh Sanchez Chi Referrals: Josh Sanchez Chi, MD [Primary Care Provider] - 5 Days for suture removal Print Language: Tuvaluan Disposition Disposition: Home, Self Care
[2024-08-09 21:25] VITALS: BP 122/81; PULSE 78; O2SAT 98
[2024-08-09] MEDS: Lidocaine 1% (20 ml mdv) 20 ML Vial INFILT (21:45)
[2024-08-09 21:54] VITALS: BP 122/81; PULSE 78; RESP 18; TEMP 36.6; O2SAT 98
== END 2024-08-09 22:57 | disposition home or self-care (01) ==
PROVIDERS: Emergency Provider Emergency Medicine; PCP Family Medicine Geriatric Medicine; Referring Provider Emergency Medicine; Visit Provider Emergency Medicine
DX: S01.81XA Laceration without foreign body of other part of head, initial encounter (principal); Z87.891 Personal history of nicotine dependence; R26.2 Difficulty in walking, not elsewhere classified; E03.9 Hypothyroidism, unspecified; S16.1XXA Strain of muscle, fascia and tendon at neck level, initial encounter; M50.30 Other cervical disc degeneration, unspecified cervical region; I10 Essential (primary) hypertension; W19.XXXA Unspecified fall, initial encounter
CPT/HCPCS: 12011; 72040; 99284

== ENCOUNTER → 2025-04-16 | Outpatient (CLI) | payer MEDICARE, OTHER, SELFPAY ==
--- NOTE | 2025-04-16 08:47 | MRI_ITS ---
PROCEDURE: BRAIN W/WO CONTRAST 04/16/2025 REASON FOR EXAM: PROGRESSIVE SUPRANUCLEAR PALSY TECHNIQUE: Procedure Code: [id number] Modality: MR Procedure: BRAIN W/WO CONTRAST Multiplanar and multisequence images were obtained. CONTRAST: Clariscan. VOLUME: 21 mL COMPARISON: MRI brain April 30, 2024. FINDINGS: Brain: Foci of hyperintense signal on T2 and FLAIR which are nonspecific but most likely due to chronic small vessel ischemia. Parenchymal volume loss consistent with brain atrophy. No restricted diffusion. No hemorrhage. No masses or midline shift. No abnormal enhancement. The orbits are unremarkable. The midline structures and craniocervical junctions are within normal limits. No ventriculomegaly. Diffusion: No restricted diffusion. Ventricles: Consistent with the overall degree of cerebral atrophy. Major Intracranial Vessels: Patent. Sinuses: Clear. Mastoids: Clear. MRI/Brain W/WO Contrast IMPRESSION: No acute brain abnormalities. Chronic findings as detailed of brain atrophy and white matter changes most lik jimi due to chronic small-vessel ischemia, stable. Reading Location: [id number]
--- NOTE | 2025-04-16 08:47 | MRI_ITS ---
PROCEDURE: SPINE CERVICAL W/WO CONTRAST 04/16/2025 REASON FOR EXAM: GAIT D/O; ? MEYELOPATHY/SPINAL STENOSIS TECHNIQUE: Procedure Code: [id number] Modality: MR Procedure: SPINE CERVICAL W/WO CONTRAST Multiplanar and multisequence images were obtained with intravenous gadolinium- based contrast administration. CONTRAST: Clariscan VOLUME: 21 mL COMPARISON: August 09, 2024, June 08, 2024 FINDINGS: Vertebrae: No fracture seen. Alignment: Straightening of the normal cervical lordosis. Spinal Cord: No abnormal signal within the spinal cord. No atrophy, syrinx or mass. No myelomalacia. C2-3: Normal C3-4: Mild loss of disc height. Mild, diffuse disc osteophyte protrusion and uncinate spurring. Minimal facet hypertrophy. Borderline stenosis at 10 mm AP. CSF is seen around the cord and there is no abnormal cord signal. Borderline narrowing of the exit foramina. C4-5: Moderate loss of disc height. Mild, diffuse disc osteophyte protrusion and uncinate spurring. Mild bilateral facet hypertrophy. Borderline stenosis of the central canal with effacement of the anterior thecal sac. CSF is seen posterior to the cord. No abnormal cord signal. No exit foraminal narrowing. C5-6: Moderate loss of disc height. Mild, diffuse disc osteophyte protrusion and uncinate spurring. Mild left facet hypertrophy. Central canal is borderline stenotic at 10 mm AP. There is effacement of the anterior thecal sac with CSF posterior to the cord. No abnormal cord signal. Borderline narrowing of the exit foramina bilaterally. C6-7: Mild loss of disc height. Mild, diffuse disc osteophyte protrusion and uncinate spurring, [id number]. No central stenosis. CSF is seen around the cord and there is no abnormal cord signal. Borderline narrowing left exit foramen. C7-T1: Normal MRI/Spine Cervical W/WO Contrast IMPRESSION: Multilevel degenerative disc disease with central stenosis. No abnormal cord s ignal seen to suggest myelomalacia. Reading Location: [id number]
[2025-04-16 09:44] LABS: Hematocrit 39.9 % (37-47); Hemoglobin 13.1 g/dL (12.0-15.0); Mean Corp Hgb Conc 32.8 g/dL (32-36); Mean Corpuscular Volume 91.9 fL (81-99); Mean Platelet Vol. 9.0 fl (6.2-12.0); Platelet Count 288 K/mm3 (150-450); RBC Distribution Width CV 12.9 % (11.6-14.6); RBC Distribution Width SD 43.8 fl (35.1-43.9); Red Blood Count 4.34 M/mm3 (4.2-5.4); White Blood Count 9.5 K/mm3 (4.4-11.0)
[2025-04-16 10:23] LABS: Ammonia 11.9 umol/L (11-51)
[2025-04-16 10:37] LABS: AST(SGOT) 19 U/L (<=31); Alanine Aminotransfer ALT/SGPT 10 U/L (<=34); Albumin, Serum 4.2 g/dL (3.4-4.8); Alkaline Phosphatase 119 U/L (35-104); Anion Gap 9 (5-15); BUN 15 mg/dL (4-19); BUN/Creat Ratio 18.4 RATIO (10-20); Calcium,Total 9.6 mg/dL (7.6-11.0); Carbon Dioxide 29.0 mmol/L (21.0-32.0); Chloride 103 mmol/L (98-108); Globulin 2.9 g/dL (2.2-4.2); Glucose 104 mg/dL (70-99); Magnesium 1.9 mg/dL (1.5-2.2); Potassium 4.1 mmol/L (3.3-5.1); Vitamin B12 1081 pg/mL (180-914)
[2025-04-18 12:08] LABS: Vitamin D 1,25-Dihydroxy 43.4 pg/mL (24.8-81.5)
[2025-04-21 23:07] LABS: Folate, Hemolysate Test 432.0 ng/mL (Not Estab.); Folate, RBC (Hct) Test 41.7 % (34.0-46.6); Folates, RBC Test 1036 ng/mL (>498); VITAMIN B6 5.9 ug/L (3.4-65.2); Vitamin B1, Thiamine 157.0 nmol/L (66.5-200.0)
== END | disposition home or self-care (01) ==
LOC: MRI 08:44
PROVIDERS: PCP Family Medicine Geriatric Medicine; Referring Provider Psychiatry & Neurology Neurology; Visit Provider Psychiatry & Neurology Neurology
DX: F03.90 Unspecified dementia, unspecified severity, without behavioral disturbance, psychotic disturbance, mood disturbance, and anxiety (principal); G23.1 Progressive supranuclear ophthalmoplegia [Steele-Richardson-Olszewski]; R26.9 Unspecified abnormalities of gait and mobility; G62.9 Polyneuropathy, unspecified; E03.9 Hypothyroidism, unspecified; R32 Unspecified urinary incontinence
CPT/HCPCS: 36415; 70553; 72156; 80053; 82140; 82607; 82652; 82747; 83735; 83883; 84207; 84425; 84439; 84443; 85014; 85027; A9575; A4216

== ENCOUNTER → 2025-04-17 | Outpatient (CLI) | payer MEDICARE, OTHER, SELFPAY ==
--- NOTE | 2025-04-17 14:04 | MRI_ITS ---
PROCEDURE: SPINE THORACIC W/WO CONTRAST 04/17/2025 REASON FOR EXAM: GAIT D/O; ? MEYELOPATHY/SPINAL STENOSIS TECHNIQUE: Thoracic spine MRI without and with intravenous gadolinium-based contrast. Multiplanar and multisequence images were obtained. CONTRAST: Clariscan VOLUME: 21mL COMPARISON: None. FINDINGS: Vertebrae: Preserved in height and signal. Alignment: Unremarkable. Spinal Cord: Unremarkable. Disc spaces: Unremarkable. Paraspinal Tissues: No abnormal enhancement. Postcontrast images: No abnormal enhancement. MRI/Spine Thoracic W/WO Contrast IMPRESSION: Unremarkable MRI of the thoracic spine without abnormal enhancement. Reading Location: [id number]
--- NOTE | 2025-04-17 14:04 | MRI_ITS ---
PROCEDURE: SPINE LUMBAR W/WO CONTRAST 04/17/2025 REASON FOR EXAM: GAIT D/O; ? MEYELOPATHY/SPINAL STENOSIS TECHNIQUE: Procedure Code: [id number] Modality: MR Procedure: SPINE LUMBAR W/WO CONTRAST Multiplanar and multisequence images were obtained without and with intravenous gadolinium-based contrast administration. CONTRAST: Clariscan VOLUME: 21 mL COMPARISON: MR lumbar spine May 26, 2024. FINDINGS: Vertebrae: Preserved in height and signal. Status post laminectomies and posterior fusion at L5-S1. Alignment: Normal. Conus Medullaris: Unremarkable. L1-2: No foraminal or canal stenosis. L2-3: No foraminal or canal stenosis. L3-4: No foraminal or canal stenosis. L4-5: No foraminal or canal stenosis. L5-S1: No foramina stenosis. Status post laminectomies. Sacrum: Unremarkable Postcontrast images: No abnormal enhancement. MRI/Spine Lumbar W/WO Contrast IMPRESSION: Unremarkable MRI of the lumbar spine without acute process or abnormal enhancem ent. Reading Location: [id number]
== END | disposition home or self-care (01) ==
PROVIDERS: PCP Family Medicine Geriatric Medicine; Referring Provider Psychiatry & Neurology Neurology; Visit Provider Psychiatry & Neurology Neurology
DX: R26.9 Unspecified abnormalities of gait and mobility (principal); R32 Unspecified urinary incontinence
CPT/HCPCS: 72157; 72158; A9575; A4216

== ENCOUNTER → 2025-05-16 | Outpatient (CLI) | payer MEDICARE, OTHER, SELFPAY ==
[2025-05-21 16:09] LABS: Albumin 3.6 g/dL (2.9-4.4); Gamma Globulin 1.3 g/dL (0.4-1.8); Immunoglobulin A 331 mg/dL (64-422); Immunoglobulin G 1269 mg/dL (586-1602); Immunoglobulin M 150 mg/dL (26-217); PROEL- TOTAL PROTEIN 7.1 g/dL (6.0-8.5)
== END | disposition home or self-care (01) ==
PROVIDERS: PCP Family Medicine Geriatric Medicine; Referring Provider Psychiatry & Neurology Neurology; Visit Provider Psychiatry & Neurology Neurology
DX: G62.9 Polyneuropathy, unspecified (principal)
CPT/HCPCS: 36415; 82784; 84165; 86334; 86335